=== PATIENT | male | born 2000 | race Caucasian/White ===

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

== ENCOUNTER 2022-07-18 18:47 | Emergency (ER) | payer MEDICAID, SELFPAY ==
[2022-07-18] VITALS (33 sets, daily range): BP systolic 81–134; BP diastolic 41–83; PULSE 54–78; RESP 12–20; O2SAT 92–100
--- NOTE | ~2022-07-18 | XR_ITS ---
EXAMINATION: XR chest 1V portable Exam Date/Time: 07/18/2022 19:45 [employer] FENCE BUILDER HISTORY: OD Comparison: None available. RESULT: Lines, tubes, and devices: None. Lungs and pleura: Clear. Cardiomediastinal silhouette: Normal. Other: No acute osseous or upper abdominal finding. IMPRESSION: No acute cardiopulmonary process. Reviewed, dictated and finalized at location K. IC FENCE BUILDER
--- NOTE | 2022-07-18 18:50 | ECG_ITS ---
Measurements Intervals [place] Rate: 72 P: 72 MA: 150 QRS: 93 QRSD: 89 T: 75 QT: 418 QTc: 460 Interpretive Statements SINUS RHYTHM RIGHT AXIS DEVIATION MINIMAL Q WAVES- INFERIOR LEADS BORDERLINE ECG COMPARED TO ECG 10/23/2021 09:13:13 SINUS RHYTHM NOW PRESENT Electronically Signed On 07-19-2022 7:13:07 [employer] DESIGNER by Sami Lu D.O.
[2022-07-18] MEDS: LORazepam INJ (*CRX) 2 MG/ML VIAL IV PUSH (19:10)
[2022-07-18] MEDS: HALOPERIDOL LACTATE 5 MG/ML VIAL IV PUSH (19:10)
--- NOTE | 2022-07-18 19:16 | ED.OVERDOSE ---
HPI - Overdose General Chief Complaint: Overdose <Gustavo Marin APRN - Last Filed: 07/19/22 02:27> Stated Complaint: SI/OD <Gustavo Marin APRN - Last Filed: 07/19/22 02:27> Time Seen by Provider: 07/19/22 09:12 <Gustavo Marin APRN - Last Filed: 07/19/22 02:27> History of Present Illness HPI Narrative: 21-year-old male history of anxiety and depression presents to the emergency room for evaluation of an overdose and suicide attempt. Patient presents with EMS and law enforcement in four-way restraints due to being agitated at the scene. According to EMS, patient took 4-6 tablets of Xanax, possible unknown amount of Lexapro, EtOH, and about 15 tablets of Zofran. Patient is currently agitated and alert and oriented x3 on presentation. Patient states that he was found with a knife at the scene and that is why law enforcement was called. Patient admitted to a self-inflicted knife wound to the left wrist <Gustavo Marin APRN - Last Filed: 07/19/22 02:27> Related Data Home Medications: Home Medications Medication Instructions Recorded Confirmed buprenorphine 8 mg-naloxone 2 mg tablet sublingual 07/18/22 sublingual tablet dextroamphetamine-amphetamine 10 07/18/22 mg tablet (Adderall) escitalopram oxalate 10 mg tablet mg 07/18/22 (Lexapro) ondansetron HCl 4 mg tablet mg 07/18/22 <Gustavo Marin APRN - Last Filed: 07/19/22 02:27> Allergies/Adverse Reactions: Allergies Allergy/AdvReac Type Severity Reaction Status Date / Time No Known Allergies Allergy Verified 07/18/22 19:32 <Gustavo Marin APRN - Last Filed: 07/19/22 02:27> Review of Systems Review of Systems: CONSTITUTIONAL: Denies fever, chills, or sweats. EYES: Denies visual changes, redness, or discharge. ENT: Denies rhinorrhea, congestion, sore throat, or otalgia. CARDIOVASCULAR: Denies chest pain, palpitations, or edema. RESPIRATORY: Denies cough or dyspnea. GASTROINTESTINAL: Denies abdominal pain, nausea, vomiting, or diarrhea. GENITOURINARY: Denies dysuria or hematuria. SKIN: Denies rash or itching. MUSCULOSKELETAL: Denies back pain, joint pain, or myalgia. NEUROLOGIC: Denies headache, numbness, dizziness, or weakness. PSYCHIATRIC: Denies anxiety or depression. <Gustavo Marin APRN - Last Filed: 07/19/22 02:27> PMFSH Social History Social History: Social History Substance use type: opiates and painkillers <Gustavo Marin APRN - Last Filed: 07/19/22 02:27> Exam Narrative: GENERAL: Well-appearing, well-nourished, no physical limitations, acute psychological distress. HEAD: Normocephalic, atraumatic. EYES: Conjunctivae normal, PERRLA and EOMI. NECK: Supple. CHEST: Clear to auscultation. No respiratory distress. No wheezes rales or rhonchi. HEART: Regular rate and rhythm. No murmur heard. Normal peripheral pulses. ABDOMEN: Soft, nontender, nondistended, normal active bowel sounds. BACK: No cervical/thoracic/lumbar tenderness, step-offs, bony abnormality; FROM EXTREMITIES: Normal range of motion. No edema. No clubbing or cyanosis SKIN: Warm, dry, no rash. 2.5 cm linear laceration to anterior left wrist NEURO: No focal deficits. Alert and oriented x3. MAEW. CN's II-XI intact bilaterally, normal gait PSYCH: Uncooperative and agitated <Gustavo Marin APRN - Last Filed: 07/19/22 02:27> Course Course Emergency Course: 2000: Patient in four-way soft restraints on arrival. Patient was initially cooperative and answering questions appropriately. Soft restraints were removed at that time explained to patient that I needed to repair his laceration over his left wrist, patient became uncooperative and combative at that time. Heart wrist restraints were applied and his wound was repaired. Patient told me that he was going to kill me and my family . Patient was able to sit up in bed and managed to head butt the provider in the
--- NOTE | 2022-07-18 19:19 | PC.NURSE ---
191 Called poison control and spoke with SHAN Archer. She states patient is out of window for xanax but for the possible lexapro and zofran the peak is 5 hours and to watch for drowsiness, prolonged QT and tachycardia. She recommends obtain labs, 12 lead and monitor patient. She also states okay to give ativan or geodon if still aggressive. ERP notified.
--- NOTE | 2022-07-18 19:58 | PC.NURSE ---
1954 Restraints removed, mother at bedside.
[2022-07-18 20:00] LABS: Appearance Urine Clear (Clear); Basophils Percent Auto 0.6 % (0.2-1.2); Bilirubin Urine Negative (Negative); Blood Urine Negative (Negative); Color Urine Yellow (Yellow); Eosinophils Absolute Auto 0.4 K/mm3 (0-0.3); Eosinophils Percent Auto 6.1 % (0-4.4); Glucose Urine UA Negative (Negative); Hematocrit 43.2 % (42.0-52.0); Hemoglobin 14.6 g/dL (14.0-18.0); Immature Granulocyte Absolute 0.01 K/mm3 (0.00-0.031); Immature Granulocyte Percent A 0.2 % (0-0.5); Ketones Urine Negative (Negative); Leukocyte Esterase Ur Negative LEU/UL (Negative); Lymphocytes Percent Auto 34.2 % (18.3-44.2); Mean Corpuscular HGB Conc 33.8 g/dl (32-36); Mean Corpuscular Hemoglobin 31.3 pg (26-34); Mean Corpuscular Volume 92.7 fl (80-100); Mean Platelet Volume 9.2 fl (7.4-10.4); Monocytes Absolute Auto 0.4 K/mm3 (0.1-0.6); Monocytes Percent Auto 6.1 % (2.6-8.5); Neutrophils Absolute Auto 3.4 K/mm3 (1.3-6.7); Neutrophils Percent Auto 52.8 % (45.5-73.1); Nitrate Urine Negative (Negative); Platelet Count Result 186 k/mm3 (150-375); Protein Urine Negative (Negative); Red Blood Count 4.66 M/mm3 (4.6-6.20); Red Cell Distribution Width 13.6 % (11.5-14.5); Specific Grav Ur <= 1.005 (1.001-1.035); Urobilinogen Urine 0.2 mg/dL (<2.0); White Blood Count 6.4 K/mm3 (4.5-10.0); pH Urine 6.5 (5.0-9.0)
[2022-07-18 20:05] LABS: Alanine Aminotransferase 19 U/L (6-50); Albumin Level 4.7 g/dL (3.7-5.6); Alkaline Phosphatase 57 U/L (58-237); Anion Gap 13 mmol/L (8-16); Aspartate Amino Transferase 34 U/L (17-59); Bilirubin,Total 0.6 mg/dL (0.2-1.3); Blood Urea Nitrogen 11 mg/dL (8-21); Calcium 8.8 mg/dL (8.9-10.7); Carbon Dioxide 22 mmol/L (22-30); Chloride 103 mmol/L (98-107); Estimated Glomerular Filt Rate > 60; Glucose 79 mg/dL (65-110); Potassium 3.8 mmol/L (3.4-5.0); Sodium 138 mmol/L (134-143)
[2022-07-18 20:06] LABS: Acetaminophen < 10 ug/mL (10-30); Ethanol 222 mg/dL (<10); Salicylate < 1.0 mg/dL (2-20)
[2022-07-18 20:15] LABS: Amphetamine Screen Urine Negative (Negative); Barbiturate Screen Urine Negative (Negative); Benzodiazepines Screen Urine Positive (Negative); Cannabinoid Screen Urine Negative (Negative); Cocaine Screen Urine Negative (Negative); Methadone Screen Urine Negative (Negative); Opiate Screen Urine Negative (Negative); Phencyclidine Screen Urine Negative (Negative)
[2022-07-18 20:23] LABS: Add Urine Microscopic? NO; Troponin I < 0.012 ng/mL (0.000-0.034)
[2022-07-18] MEDS: SODIUM CHLORIDE 0.9% IV 1,000 ML 999 ML IV CONT (21:41)
[2022-07-18] MEDS: LACTATED RINGERS 1,000 ML 999 ML IV CONT (23:01)
--- NOTE | 2022-07-18 23:09 | PC.NURSE ---
[id number] Suzi from poison control calls back to get update. She states she will call back later for another update.
[2022-07-19] VITALS (54 sets, daily range): BP systolic 80–136; BP diastolic 28–72; PULSE 49–85; RESP 7–22; O2SAT 94–100
[2022-07-19 02:20] LABS: Ethanol 104 mg/dL (<10)
[2022-07-19 04:14] LABS: Ethanol 68 mg/dL (<10)
--- NOTE | 2022-07-19 04:22 | PC.NURSE ---
Per MARIN Delvalle, pt is medically cleared at this time.
[2022-07-19 05:31] LABS: Influenza A QL RT-PCR Negative (Negative); Influenza B QL RT-PCR Negative (Negative); SARS-CoV-2 RNA PCR Negative
--- NOTE | 2022-07-19 08:06 | PC.NURSE ---
Pt requesting Seboxone. States If I go through withdrawal I will become an asshole.
--- NOTE | 2022-07-19 08:43 | PC.NURSE ---
[facility] unable to take pt because they are at capacity.
--- NOTE | 2022-07-19 09:00 | PC.NURSE ---
Sleeping. Sitter at bedside.
--- NOTE | 2022-07-19 09:24 | PC.NURSE ---
[facility] requests chart be faxed.
--- NOTE | 2022-07-19 09:30 | PC.NURSE ---
[facility] returned call and states they now do not have a bed available.
--- NOTE | 2022-07-19 15:40 | PC.NURSE ---
[facility] denied - no beds
--- NOTE | 2022-07-19 19:34 | PC.NURSE ---
1909 Assumed pt care from Marissa Charles RN
[2022-07-19] MEDS: LORazepam INJ (*CRX) 2 MG/ML VIAL 1 MG IV PUSH (20:20)
[2022-07-20 08:18] VITALS: BP 134/90; PULSE 66; RESP 18; TEMP 36.8; O2SAT 99
--- NOTE | 2022-07-20 08:28 | PC.NURSE ---
Patient states he feels restless since he has not had his Suboxone. EDP Mun[facility] notified. 0.5mg Ativan PO ordered.
[2022-07-20] MEDS: LORazepam (*CRX) 0.5 MG TABLET PO (08:33)
--- NOTE | 2022-07-20 09:22 | PC.NURSE ---
Since patient is 21 this RN contacted [facility] for patient evaluation. [facility] states patient is not eligible due to insurance purposes and is denied. Crisis notified for evaluation.
[2022-07-20 11:46] VITALS: BP 126/81; PULSE 60; RESP 18; O2SAT 94
[2022-07-20 16:57] VITALS: BP 129/84; PULSE 70; RESP 18; O2SAT 98
[2022-07-20] MEDS: ONDANSETRON HCL ODT 4 MG TABLET PO (19:21)
[2022-07-21] MEDS: hydrOXYzine HCL 25 MG TABLET PO ×2 (00:40→02:41)
[2022-07-21] MEDS: LORazepam (*CRX) 0.5 MG TABLET PO (03:00)
--- NOTE | 2022-07-21 05:20 | PC.NURSE ---
This nurse called [facility] and spoke with Deisi for update about pt placement status. No update could be given at approximately, 0500. Was told to call [facility] about status update and referral. [facility] called at [phone] and was told pt was originally denied due to high acuity, when called this am they stated pt needed new work up since all lab work had been over 24 hours, but did have male adult beds available. [facility] contact this am and gave update that pt was denied due to acuity on 07/20/21 during dayshift . Chart can be re-faxed if want to refer again at [phone]. [facility] contacted shortly after and was told pt needed new updated petition of involuntary placement, ht, wt, TSH, CBC, Restraint updates, BAL, Nursing notes, and medication administration to be faxed at [phone]. [facility] later called at approximately 0528 and denied pt due to acuity and lack of resources. This nurse called jose[facility]ina after these calls and spoke with Chava. Update as follows; [facility] denied due to pt is self pay/no beds available. [facility] denied due to acuity [facility] denied due to acuity originally [facility] states they need new updated psych work up and labs and new covid test needed. [facility] denied as listed above but does have adult male bed available. [facility] was full[facility]no beds [facility]- full no beds available [facility]- full/ no beds [facility]- pt chart was faxed at [phone] per josefina on 07/20/21 but no response. [facility] in [place]- chart was faxed and no response [facility]- called and VM left per [facility] with no response documented at this time. Was told by [facility] Larsen, update to all Crisis workers on staff to confirm when petition for involuntary expires, assumed at 0830 today(07/21/22), if expiring after 24 hours. If expiration occurs, [facility] will be out to reassess or continue/update petition at that approximate time. Pt restless in room 15, pt converses easily. Pt continually requesting ativan, suboxone, or Tramadol. Dr. Delvalle made aware and no new medication orders placed at this time. Pt made aware this facility can not order suboxone per Dr. Delvalle. Pt had fair night of rest since 2300 on 07/20/21. Pt ambulatory, gait steady, cooperative with staff at this time and throughout shift of 07/20/21 2300 to 07/21/22 0700. Pt ascorted with security and sitter to hospital room for shower at request of pt. Pt denies hallucinations at this time. Pt states I feel shaking, restless and then hot and then cold. Pt skin pink, warm, and dry. No moisture to palms at this time. No tremors felt or observed during assessment/updates of pt.
--- NOTE | 2022-07-21 07:24 | PC.NURSE ---
Pt breakfast order by sitter at bedside. Pt updated that crisis should be in contact around 0830 this am. Pt cooperative but restless and still requesting suboxone at this time. Report given to SHAN Edmondson at this time.
--- NOTE | 2022-07-21 08:00 | PC.NURSE ---
faxed [facility] in [place], [place] the entire chart. Waiting for call back
--- NOTE | 2022-07-21 09:50 | PC.NURSE ---
crisis at bedside for reevaluation. pt remain alert and oriented x 3. cooperative with staff.
[2022-07-21 11:15] VITALS: BP 125/85; PULSE 62; RESP 16
== END 2022-07-21 11:15 | disposition home or self-care (01) ==
PROVIDERS: Emergency Medicine; Nurse Practitioner Family; Emergency Provider Emergency Medicine
DX: T42.4X2A Poisoning by benzodiazepines, intentional self-harm, initial encounter (principal); T45.0X2A Poisoning by antiallergic and antiemetic drugs, intentional self-harm, initial encounter; T43.222A Poisoning by selective serotonin reuptake inhibitors, intentional self-harm, initial encounter; F10.129 Alcohol abuse with intoxication, unspecified; S61.512A Laceration without foreign body of left wrist, initial encounter; Y90.7 Blood alcohol level of 200-239 mg/100 ml; Z20.822 Contact with and (suspected) exposure to COVID-19; R94.31 Abnormal electrocardiogram [ECG] [EKG]; X78.1XXA Intentional self-harm by knife, initial encounter
CPT/HCPCS: 36415; 71045; 80053; 80307; 81003; 84484; 85025; 87636; 93005; 96361; 96374; 96375; 99284; A9270; J1630; J2060; J7030; J7120

== ENCOUNTER 2024-05-16 18:39 | Inpatient (IN) | payer OTHER, SELFPAY ==
[2024-05-16] VITALS (13 sets, daily range): BP systolic 80–130; BP diastolic 41–91; PULSE 86–130; RESP 12–22; TEMP 36.6–36.8; O2SAT 94–99; BMI 20.1
--- NOTE | ~2024-05-16 | XR_ITS ---
Portable chest x-ray Comparison: 05/18/2024 Clinical History: Respiratory failure Findings: Endotracheal tube, NG tube, and right IJ line are in place. Lungs are clear. Cardiomedias tinal silhouette is stable. Bones and soft tissues are unremarkable. Impression: Clear lungs. Support tubes, as above. Reviewed, dictated and finalized at location . E OIL PUMPER Impression: Clear lungs. Support tubes, as above.
--- NOTE | ~2024-05-16 | XR_ITS ---
Portable chest x-ray Comparison: 07/18/2022 Clinical History: Tube placement Findings: Endotracheal tube, NG tube, and right IJ line are in satisfactory positions. Lungs are shaq ar, without focal consolidation or pleural effusion. No pneumothorax. Cardiomediastinal silhouette i s stable. Bones and soft tissues are unremarkable. Impression: Support tubes, as above. Clear lungs. Reviewed, dictated and finalized at location M. RY DRILL OPERATOR HELPER Impression: Support tubes, as above. Clear lungs.
--- NOTE | ~2024-05-16 | XR_ITS ---
Upright portable view of the abdomen Clinical history: NG tube placement Findings: NG tube in satisfactory position. Bowel gas pattern is nonspecific. No evidence for obstruc tion or free air. No abnormal mass lesion or calcification is seen. Osseous structures are intact. Impression: NG tube in satisfactory position. Reviewed, dictated and finalized at [facility]. ILING INSTRUCTOR Impression: NG tube in satisfactory position.
--- NOTE | ~2024-05-16 | CT_ITS ---
CT brain wo con Ordering provider: Daniel Wright MD History: 23 years Male with him. Seizures . Comparison: October 23, 2021 Technique: CT of the head without contrast. Radiation reduction technique utilized.The dose-length pr oduct was 605.33 mGy-cm. FINDINGS: BRAIN PARENCHYMA AND CSF SPACES: No midline shift, mass effect or hemorrhage. The brain parenchyma a nd CSF spaces are otherwise normal. VISUALIZED PARANASAL SINUSES: Well aerated. MASTOIDS: Well aerated. BONES: The bones appear intact. SOFT TISSUES: Visualized nasopharynx is normal. Superficial soft tissues are normal. IMPRESSION: No acute intracranial findings. Reviewed, dictated and finalized at location A. IC ACID CONCENTRATOR OPERATOR
--- NOTE | ~2024-05-16 | XR_ITS ---
Portable chest x-ray Comparison: 05/17/2024 Clinical History: Respiratory failure Findings: Endotracheal tube, NG tube, and right IJ line are in place. Lungs are clear, without focal consolidation or pleural effusion. Cardiomediastinal silhouette is stable. Bones and soft tissues a re unremarkable. Impression: Clear lungs. Support tubes, as above. Reviewed, dictated and finalized at location . ION ANALYST Impression: Clear lungs. Support tubes, as above.
--- NOTE | ~2024-05-16 | XR_ITS ---
EXAMINATION: XR chest 1V portable DATE: 05/17/2024 21:24 INDICATION: Fever. Intubated. TECHNIQUE: A single frontal view of the chest was obtained on 2 radiographs. COMPARISON: Chest single view 05/17/2024 FINDINGS: There is no pneumonia, pleural effusion, or pneumothorax. The heart size is normal. The end otracheal tube tip is 2.6 cm above the gurmeet. A right internal jugular central venous catheter is se en with tip in the superior vena cava. The nasogastric tube tip is beyond the inferior margin of the radiograph, but at least to the stomach. IMPRESSION: 1. No acute cardiopulmonary disease. Reviewed, dictated and finalized at location A. CH ENGINE OPTIMIZATION MANAGER
--- NOTE | 2024-05-16 18:51 | ECG_ITS ---
Test Date: 2024-05-16 18:55:31 Measurements Intervals [place] Rate: 101 P: 71 RI: 154 QRS: 95 QRSD: 92 T: 56 QT: 359 QTc: 465 Interpretive Statements SINUS TACHYCARDIA RIGHT AXIS DEVIATION MINIMAL Q WAVES- INFERIOR LEADS BASELINE ARTIFACT- V1 BORDERLINE ECG No previous ECG available for comparison Electronically Signed On 05-16-2024 20:31:48 PUBLIC POLICY MANAGER by Sami Lu D.O.
--- NOTE | 2024-05-16 19:01 | PC.NURSE ---
RN spoke with Kristyn at Poison control who stated Peak for Gabapentin is around 2 hours but can be 5 hours. States that 10 grams is the max and that pt is under that max amount. Peak for Fluoxetine is around 6-8 hours and to watch for seizures and rhabdomyolysis. Recommends to monitor pt for at least 6 hours and to do serial EKG's, IV fluids, medications to keep blood pressure in range and to monitor renal function
--- NOTE | 2024-05-16 19:11 | ED_ITS ---
HPI - Overdose General Chief Complaint: Overdose <Sushma Orellana PA-C - Last Filed: 05/17/24 01:04> Stated Complaint: OD/ETOH <Sushma Orellana PA-C - Last Filed: 05/17/24 01:04> Time Seen by Provider: 05/16/24 18:42 <Sushma Orellana PA-C - Last Filed: 05/17/24 01:04> History of Present Illness HPI Narrative: 23-year-old male presents to the ED via EMS for an overdose. patient took 2940 mg of fluoxetine and 40-100 mg of gabapentin at 6:00 p.m.. States he took these pills because he was sad. He denies suicidal ideation or homicidal ideation. He admits to drinking a 5th of vodka today, last drink was around 1800 as well. States he drinks half of 5th of vodka daily for the past 2 months. He also admits to using several drugs including methamphetamines and opioids. He admits to being hospitalized 6 months ago for a heroin overdose. He has no complaints. <Sushma Orellana PA-C - Last Filed: 05/17/24 01:04> Related Data Home Medications: Home Medications Medication Instructions Recorded Confirmed buprenorphine 8 mg-naloxone 2 mg tablet sublingual 07/18/22 sublingual tablet dextroamphetamine-amphetamine 10 07/18/22 mg tablet (Adderall) escitalopram oxalate 10 mg tablet mg 07/18/22 (Lexapro) ondansetron HCl 4 mg tablet mg 07/18/22 bupropion HCl 150 mg tablet,12 hr 150 mg PO DAILY 05/16/24 sustained-release fluoxetine 10 mg capsule mg 05/16/24 fluoxetine 20 mg capsule mg 05/16/24 fluoxetine 40 mg capsule mg 05/16/24 gabapentin 100 mg capsule mg 05/16/24 <LORIN Cordova Last Filed: 05/17/24 01:04> Allergies/Adverse Reactions: Allergies Allergy/AdvReac Type Severity Reaction Status Date / Time No Known Allergies Allergy Verified 05/16/24 18:54 <LORIN Cordova Last Filed: 05/17/24 01:04> Review of Systems Review of Systems: All systems reviewed & are unremarkable except as noted in HPI and below <Sushma Orellana PA-C - Last Filed: 05/17/24 01:04> [facility] Past Medical History Medical History: Medical History Alcohol abuse Alcohol intoxication Polysubstance abuse <Sushma Orellana PA-C - Last Filed: 05/17/24 01:04> Social History Social History: Social History Smoking status: Unknown if ever smoked Alcohol intake: current Substance use: current Substance use type: marijuana, amphetamines, opiates and methamphetamine Last use: 05/16/24 Spiritual care concerns: No <Sushma Orellana PA-C - Last Filed: 05/17/24 01:04> Exam Narrative: GENERAL: Intoxicated, anxious, irritable HEAD: Normocephalic, atraumatic. EYES: PERRLA and EOMI. conjunctiva injected bilaterally. Mydriasis bilaterally ENT: Nares clear, no rhinorrhea or epistaxis. Mucous membranes moist. NECK: Supple. CHEST: Clear to auscultation. No respiratory distress. HEART: tachycardic, regular rhythm. No murmur heard. Normal peripheral pulses. ABDOMEN: Soft, nontender, nondistended, normal active bowel sounds. EXTREMITIES: Normal range of motion. No edema. SKIN: Warm, dry, no rash. NEURO: No focal deficits. Alert and oriented x3 PSYCH: anxious, irritable, denies SI or HI <Sushma Orellana PA-C - Last Filed: 05/17/24 01:04> Course CREEL CLERK/PA Physician Supervision This visit was performed by both a physician and an APC. I performed all aspects of the MDM as documented. <Román Amaral MD - Last Filed: 05/19/24 04:16> Vital Signs Vital signs: Vital Signs Temperature 97.8 F 05/16/24 18:36 Pulse Rate 130 H 05/16/24 18:36 Respiratory Rate 18 05/16/24 18:36 Blood Pressure 130/91 H 05/16/24 18:36 Pulse Oximetry 97 05/16/24 18:36 Oxygen Delivery Room Air 05/16/24 18:36 Temperature 100 F H 05/19/24 04:00 Pulse Rate 87 05/19/24 04:00 Respiratory Rate 17 05/19/24 04:00 Blood Pressure 111/73 05/19/24 04:00 Pulse Oximetry 98 05/19/24 04:00 Oxygen Delivery Mechanical Ventilation 05/19/24 02:23 Oxygen Flow Rate 4 05/16/24 23:23 Fraction of Inspired Oxygen 25 05/19/24 02:23 <Sushma Orellana PA-C - Last Filed: 05/17/24 01:04> Vital Signs Temperature 97.8 F 05/16/24 18:36 Pulse Rate 130 H 05/16/24 18:36 Respiratory Rate 18 05/16/24 18:36 Blood Pressure 130/91 H 05/16/24 18:36 Pulse Oximetry 97 05/16/24 18:36 Oxygen Delivery Room Air 05/16/24 18:36 Temperature 100 F H 05/19/24 04:00 Pulse Rate 87 05/19/24 04:00 Respiratory Rate 17 05/19/24 04:00 Blood Pressure 111/73 05/19/24 04:00 Pulse Oximetry 98 05/19/24 04:00 Oxygen Delivery Mechanical Ventilation 05/19/24 02:23 Oxygen Flow Rate 4 05/16/24 23:23 Fraction of Inspired Oxygen 25 05/19/24 02:23 <Román Amaral MD - Last Filed: 05/19/24 04:16> MDM - Overdose MDM Narrative Medical decision making narrative: 23-year-old male with history of substance abuse, ETOH abuse presents to emergency department for drug overdose. Patient took 29 40 mg of fluoxetine 40 100 mg of gabapentin at 4:00 p.m.. Also admits to drinking daily for the past 6 months. Last drink was at 1800. States he took the medications because he is sad but denies direct suicide attempt. airway intact. Patient is awake and alert. Plan to obtain broad workup including lab work, ABG, EKG, UDS, EtOH. Plan to contact poison Control. Poison Control Contacted. Advise peak gabapentin is around 2 hours but can be 5 hours. advises 10 g is level of concern and patient is under 10 g a consumption. Advises peak fluoxetine is around 6-8 hours and to watch for seizures and rhabdomyolysis. Poison Control recommends to monitor the patient for least 6 hours and to do serial EKGs, IV fluids, medications to control blood pressure and to monitor renal function closely. CBC is largely unremarkable. Chemistries with anion gap of 13, normal bicarb. Lactic acid is elevated to 2.9. UA unremarkable. UDS positive for amphetamines and cannabinoids. CK normal at 109. Ethanol elevated 268. Mag is normal. TSH normal 1.8. EKG shows sinus tachycardia rate of 101, normal OK interval, normal QRS duration, normal QTC, normal ischemic changes. Patient received a L of fluids and heart rate has improved to 101. He remains alert and oriented, airway is protected. Consulted, Dr. Wright,who advises another L of fluids and maintenance LRs of 125cc/hr. Advises admission to IMU with ICU bed. discussed the case with the hospitalist, Dr. Cerna, who agrees to the plan. prior to patient going upstairs, he had a less than 1 minute seizure which was observed by myself and nursing staff. Patient had a short period of apnea but quickly regained normal respiratory rate and saturations of 95% and above. Repeat EKG shows a ventricular rate of 89 ppm, normal OK interval, normal QRS duration, normal QTC at 457, no ischemic changes. EKG just prior to seizure- like activity did show a QTC of 499. <Sushma Orellana PA-C - Last Filed: 05/17/24 01:04> Lab Data Result diagrams: 05/18/24 05:47 05/18/24 05:47 <Sushma Orellana PA-C - Last Filed: 05/17/24 01:04> Labs: Lab Results 05/16/24 05/16/24 05/16/24 Range/Units 19:15 19:41 23:12 WBC 7.9 (4.5-10.0) K/mm3 RBC 4.95 (4.6-6.20) M/mm3 Hgb 16.0 (14.0-18.0) g/dL Hct 46.9 (42.0-52.0) % MCV 94.7 (80-100) fl MCH 32.3 (26-34) pg MCHC 34.1 (32-36) g/dl RDW 13.9 (11.5-14.5) % Plt Count 254 (150-375) k/mm3 MPV 9.2 (7.4-10.4) fl Immature Gran % (Auto) 0.3 (0-0.5) % Neut % (Auto) 38.0 L (45.5-73.1) % Lymph % (Auto) 47.9 H (18.3-44.2) % [place] % (Auto) 6.6 (2.6-8.5) % Eos % (Auto) 6.4 H (0-4.4) % Baso % (Auto) 0.8 (0.2-1.2) % Lymph # (Auto) 3.79 H (0.9-3.2) K/mm3 [place] # (Auto) 0.5 (0.1-0.6) K/mm3 Eos # (Auto) 0.5 H (0-0.3) K/mm3 Baso # (Auto) 0.1 (0.0-0.1) K/mm3 Abs Immat Gran (auto) 0.02 (0.00-0.031) K/mm3 Absolute Neuts (auto) 3.0 (1.3-6.7) K/mm3 Absolute Nucleated RBC 0.000 (0.0-0.012) K/mm3 Nucleated RBC % 0.0 (0.0-0.2) % PT 14.3 (11.1-14.7) Seconds INR 1.1 APTT 26.7 (22.3-36.8) Seconds Methemoglobin (0-1.5) %THb Minute Volume Vent Mode Tidal Volume ml PEEP cmH2O Peak Inspir Pressure Pressure Support Sodium 141 (137-145) mmol/L Potassium 4.0 (3.4-5.0) mmol/L Chloride 102 (98-107) mmol/L Carbon Dioxide 26 (22-30) mmol/L Anion Gap 13 H (4-12) mmol/L BUN 11 (9-20) mg/dL Creatinine 1.10 (0.7-1.3) mg/dL Estim Creat Clear Calc 88 ml/min Estimated GFR > 60 (59 - ) Glucose 97 (65-110) mg/dL POC Capillary Glucose (65-105) mg/dl Lactic Acid 2.9 H 4.4 H* (0.7-2.0) mmol/L Calcium 9.8 (8.4-10.2) mg/dL Phosphorus 2.1 L (2.5-4.5) mg/dL Magnesium 2.2 (1.6-2.3) mg/dL Total Bilirubin 0.6 (0.2-1.3) mg/dL AST 31 (17-59) U/L ALT 19 (6-50) U/L Alkaline Phosphatase 73 (38-126) U/L Total Creatine Kinase 109 (55-170) U/L Total Protein 9.0 H (6.3-8.2) g/dL Albumin 5.2 H (3.5-5.1) g/dL Triglycerides (<150) mg/dL TSH 1.800 (0.465-4.680) uIU/mL Urine Color Yellow (Yellow) Urine Appearance Clear (Clear) Urine pH 6.5 (5.0-9.0) Ur Specific [place] 1.004 (1.001-1.035) Urine Protein Negative (Negative) mg/dL Urine Glucose (UA) Negative (Negative) mg/dL Urine Ketones Negative (Negative) mg/dL Ur Blood (Man) Negative (Negative) Urine Nitrate Negative (Negative) Urine Bilirubin Negative (Negative) Urine Urobilinogen 0.2 (<2.0) mg/dL Leukocyte Esterase Rfl Negative (Negative) BECK/UL Salicylates (2-20) mg/dL Urine Opiates Screen Negative (Negative) Urine Methadone Screen Negative (Negative) Acetaminophen < 10 L (10-30) ug/mL Ur Barbiturates Screen Negative (Negative) Ur Phencyclidine Scrn Negative (Negative) Ur Amphetamine Screen Positive A (Negative) U Benzodiazepines Scrn Negative (Negative) Urine Cocaine Screen Negative (Negative) U Cannabinoids Screen Positive A (Negative) Ethyl Alcohol 268 (<10) mg/dL 05/16/24 05/17/24 05/17/24 Range/Units 23:19 01:48 06:14 WBC 9.4 (4.5-10.0) K/mm3 RBC 3.68 L (4.6-6.20) M/mm3 Hgb 11.9 L D (14.0-18.0) g/dL Hct 35.3 L (42.0-52.0) % MCV 95.9 (80-100) fl MCH 32.3 (26-34) pg MCHC 33.7 (32-36) g/dl RDW 14.2 (11.5-14.5) % Plt Count 169 (150-375) k/mm3 MPV 9.0 (7.4-10.4) fl Immature Gran % (Auto) (0-0.5) % Neut % (Auto) (45.5-73.1) % Lymph % (Auto) (18.3-44.2) % [place] % (Auto) (2.6-8.5) % Eos % (Auto) (0-4.4) % Baso % (Auto) (0.2-1.2) % Lymph # (Auto) (0.9-3.2) K/mm3 [place] # (Auto) (0.1-0.6) K/mm3 Eos # (Auto) (0-0.3) K/mm3 Baso # (Auto) (0.0-0.1) K/mm3 Abs Immat Gran (auto) (0.00-0.031) K/mm3 Absolute Neuts (auto) (1.3-6.7) K/mm3 Absolute Nucleated RBC (0.0-0.012) K/mm3 Nucleated RBC % (0.0-0.2) % PT (11.1-14.7) Seconds INR APTT (22.3-36.8) Seconds Methemoglobin 0.2 (0-1.5) %THb Minute Volume Not Reportable Vent Mode Cmv Tidal Volume 540 ml PEEP 5 cmH2O Peak Inspir Pressure Not Reportable Pressure Support Not Reportable Sodium 139 (137-145) mmol/L Potassium 3.3 L (3.4-5.0) mmol/L Chloride 109 H (98-107) mmol/L Carbon Dioxide 21 L (22-30) mmol/L Anion Gap 9 (4-12) mmol/L BUN 7 L (9-20) mg/dL Creatinine 0.80 (0.7-1.3) mg/dL Estim Creat Clear Calc 121 ml/min Estimated GFR > 60 (59 - ) Glucose 68 (65-110) mg/dL POC Capillary Glucose (65-105) mg/dl Lactic Acid 4.2 H* (0.7-2.0) mmol/L Calcium 8.0 L (8.4-10.2) mg/dL Phosphorus 2.4 L (2.5-4.5) mg/dL Magnesium 1.5 L (1.6-2.3) mg/dL Total Bilirubin 0.4 (0.2-1.3) mg/dL AST 25 (17-59) U/L ALT 15 (6-50) U/L Alkaline Phosphatase 58 (38-126) U/L Total Creatine Kinase (55-170) U/L Total Protein 6.0 L (6.3-8.2) g/dL Albumin 3.3 L (3.5-5.1) g/dL Triglycerides 77 (<150) mg/dL TSH (0.465-4.680) uIU/mL Urine Color (Yellow) Urine Appearance (Clear) Urine pH (5.0-9.0) Ur Specific [place] (1.001-1.035) Urine Protein (Negative) mg/dL Urine Glucose (UA) (Negative) mg/dL Urine Ketones (Negative) mg/dL Ur Blood (Man) (Negative) Urine Nitrate (Negative) Urine Bilirubin (Negative) Urine Urobilinogen (<2.0) mg/dL Leukocyte Esterase Rfl (Negative) BECK/UL Salicylates < 1.0 L (2-20) mg/dL Urine Opiates Screen (Negative) Urine Methadone Screen (Negative) Acetaminophen (10-30) ug/mL Ur Barbiturates Screen (Negative) Ur Phencyclidine Scrn (Negative) Ur Amphetamine Screen (Negative) U Benzodiazepines Scrn (Negative) Urine Cocaine Screen (Negative) U Cannabinoids Screen (Negative) Ethyl Alcohol (<10) mg/dL 05/17/24 05/17/24 Range/Units 06:56 09:37 WBC (4.5-10.0) K/mm3 RBC (4.6-6.20) M/mm3 Hgb (14.0-18.0) g/dL Hct (42.0-52.0) % MCV (80-100) fl MCH (26-34) pg MCHC (32-36) g/dl RDW (11.5-14.5) % Plt Count (150-375) k/mm3 MPV (7.4-10.4) fl Immature Gran % (Auto) (0-0.5) % Neut % (Auto) (45.5-73.1) % Lymph % (Auto) (18.3-44.2) % [place] % (Auto) (2.6-8.5) % Eos % (Auto) (0-4.4) % Baso % (Auto) (0.2-1.2) % Lymph # (Auto) (0.9-3.2) K/mm3 [place] # (Auto) (0.1-0.6) K/mm3 Eos # (Auto) (0-0.3) K/mm3 Baso # (Auto) (0.0-0.1) K/mm3 Abs Immat Gran (auto) (0.00-0.031) K/mm3 Absolute Neuts (auto) (1.3-6.7) K/mm3 Absolute Nucleated RBC (0.0-0.012) K/mm3 Nucleated RBC % (0.0-0.2) % PT (11.1-14.7) Seconds INR APTT (22.3-36.8) Seconds Methemoglobin (0-1.5) %THb Minute Volume Vent Mode Tidal Volume ml PEEP cmH2O Peak Inspir Pressure Pressure Support Sodium (137-145) mmol/L Potassium (3.4-5.0) mmol/L Chloride (98-107) mmol/L Carbon Dioxide (22-30) mmol/L Anion Gap (4-12) mmol/L BUN (9-20) mg/dL Creatinine (0.7-1.3) mg/dL Estim Creat Clear Calc ml/min Estimated GFR (59 - ) Glucose (65-110) mg/dL POC Capillary Glucose 214 H 82 (65-105) mg/dl Lactic Acid (0.7-2.0) mmol/L Calcium (8.4-10.2) mg/dL Phosphorus (2.5-4.5) mg/dL Magnesium (1.6-2.3) mg/dL Total Bilirubin (0.2-1.3) mg/dL AST (17-59) U/L ALT (6-50) U/L Alkaline Phosphatase (38-126) U/L Total Creatine Kinase (55-170) U/L Total Protein (6.3-8.2) g/dL Albumin (3.5-5.1) g/dL Triglycerides (<150) mg/dL TSH (0.465-4.680) uIU/mL Urine Color (Yellow) Urine Appearance (Clear) Urine pH (5.0-9.0) Ur Specific [place] (1.001-1.035) Urine Protein (Negative) mg/dL Urine Glucose (UA) (Negative) mg/dL Urine Ketones (Negative) mg/dL Ur Blood (Man) (Negative) Urine Nitrate (Negative) Urine Bilirubin (Negative) Urine Urobilinogen (<2.0) mg/dL Leukocyte Esterase Rfl (Negative) BECK/UL Salicylates (2-20) mg/dL Urine Opiates Screen (Negative) Urine Methadone Screen (Negative) Acetaminophen (10-30) ug/mL Ur Barbiturates Screen (Negative) Ur Phencyclidine Scrn (Negative) Ur Amphetamine Screen (Negative) U Benzodiazepines Scrn (Negative) Urine Cocaine Screen (Negative) U Cannabinoids Screen (Negative) Ethyl Alcohol (<10) mg/dL <Sushma Orellana PA-C - Last Filed: 05/17/24 01:04> Lab Results 05/16/24 05/16/24 05/16/24 Range/Units 19:15 19:41 23:12 WBC 7.9 (4.5-10.0) K/mm3 RBC 4.95 (4.6-6.20) M/mm3 Hgb 16.0 (14.0-18.0) g/dL Hct 46.9 (42.0-52.0) % MCV 94.7 (80-100) fl MCH 32.3 (26-34) pg MCHC 34.1 (32-36) g/dl RDW 13.9 (11.5-14.5) % Plt Count 254 (150-375) k/mm3 MPV 9.2 (7.4-10.4) fl Immature Gran % (Auto) 0.3 (0-0.5) % Neut % (Auto) 38.0 L (45.5-73.1) % Lymph % (Auto) 47.9 H (18.3-44.2) % [place] % (Auto) 6.6 (2.6-8.5) % Eos % (Auto) 6.4 H (0-4.4) % Baso % (Auto) 0.8 (0.2-1.2) % Lymph # (Auto) 3.79 H (0.9-3.2) K/mm3 [place] # (Auto) 0.5 (0.1-0.6) K/mm3 Eos # (Auto) 0.5 H (0-0.3) K/mm3 Baso # (Auto) 0.1 (0.0-0.1) K/mm3 Abs Immat Gran (auto) 0.02 (0.00-0.031) K/mm3 Absolute Neuts (auto) 3.0 (1.3-6.7) K/mm3 Absolute Nucleated RBC 0.000 (0.0-0.012) K/mm3 Nucleated RBC % 0.0 (0.0-0.2) % PT 14.3 (11.1-14.7) Seconds INR 1.1 APTT 26.7 (22.3-36.8) Seconds Methemoglobin (0-1.5) %THb Minute Volume Vent Mode Tidal Volume ml PEEP cmH2O Peak Inspir Pressure Pressure Support Sodium 141 (137-145) mmol/L Potassium 4.0 (3.4-5.0) mmol/L Chloride 102 (98-107) mmol/L Carbon Dioxide 26 (22-30) mmol/L Anion Gap 13 H (4-12) mmol/L BUN 11 (9-20) mg/dL Creatinine 1.10 (0.7-1.3) mg/dL Estim Creat Clear Calc 88 ml/min Estimated GFR > 60 (59 - ) Glucose 97 (65-110) mg/dL POC Capillary Glucose (65-105) mg/dl Lactic Acid 2.9 H 4.4 H* (0.7-2.0) mmol/L Calcium 9.8 (8.4-10.2) mg/dL Phosphorus 2.1 L (2.5-4.5) mg/dL Magnesium 2.2 (1.6-2.3) mg/dL Total Bilirubin 0.6 (0.2-1.3) mg/dL AST 31 (17-59) U/L ALT 19 (6-50) U/L Alkaline Phosphatase 73 (38-126) U/L Total Creatine Kinase 109 (55-170) U/L Total Protein 9.0 H (6.3-8.2) g/dL Albumin 5.2 H (3.5-5.1) g/dL Triglycerides (<150) mg/dL TSH 1.800 (0.465-4.680) uIU/mL Urine Color Yellow (Yellow) Urine Appearance Clear (Clear) Urine pH 6.5 (5.0-9.0) Ur Specific [place] 1.004 (1.001-1.035) Urine Protein Negative (Negative) mg/dL Urine Glucose (UA) Negative (Negative) mg/dL Urine Ketones Negative (Negative) mg/dL Ur Blood (Man) Negative (Negative) Urine Nitrate Negative (Negative) Urine Bilirubin Negative (Negative) Urine Urobilinogen 0.2 (<2.0) mg/dL Leukocyte Esterase Rfl Negative (Negative) BECK/UL Salicylates (2-20) mg/dL Urine Opiates Screen Negative (Negative) Urine Methadone Screen Negative (Negative) Acetaminophen < 10 L (10-30) ug/mL Ur Barbiturates Screen Negative (Negative) Ur Phencyclidine Scrn Negative (Negative) Ur Amphetamine Screen Positive A (Negative) U Benzodiazepines Scrn Negative (Negative) Urine Cocaine Screen Negative (Negative) U Cannabinoids Screen Positive A (Negative) Ethyl Alcohol 268 (<10) mg/dL 05/16/24 05/17/24 05/17/24 Range/Units 23:19 01:48 06:14 WBC 9.4 (4.5-10.0) K/mm3 RBC 3.68 L (4.6-6.20) M/mm3 Hgb 11.9 L D (14.0-18.0) g/dL Hct 35.3 L (42.0-52.0) % MCV 95.9 (80-100) fl MCH 32.3 (26-34) pg MCHC 33.7 (32-36) g/dl RDW 14.2 (11.5-14.5) % Plt Count 169 (150-375) k/mm3 MPV 9.0 (7.4-10.4) fl Immature Gran % (Auto) (0-0.5) % Neut % (Auto) (45.5-73.1) % Lymph % (Auto) (18.3-44.2) % [place] % (Auto) (2.6-8.5) % Eos % (Auto) (0-4.4) % Baso % (Auto) (0.2-1.2) % Lymph # (Auto) (0.9-3.2) K/mm3 [place] # (Auto) (0.1-0.6) K/mm3 Eos # (Auto) (0-0.3) K/mm3 Baso # (Auto) (0.0-0.1) K/mm3 Abs Immat Gran (auto) (0.00-0.031) K/mm3 Absolute Neuts (auto) (1.3-6.7) K/mm3 Absolute Nucleated RBC (0.0-0.012) K/mm3 Nucleated RBC % (0.0-0.2) % PT (11.1-14.7) Seconds INR APTT (22.3-36.8) Seconds Methemoglobin 0.2 (0-1.5) %THb Minute Volume Not Reportable Vent Mode Cmv Tidal Volume 540 ml PEEP 5 cmH2O Peak Inspir Pressure Not Reportable Pressure Support Not Reportable Sodium 139 (137-145) mmol/L Potassium 3.3 L (3.4-5.0) mmol/L Chloride 109 H (98-107) mmol/L Carbon Dioxide 21 L (22-30) mmol/L Anion Gap 9 (4-12) mmol/L BUN 7 L (9-20) mg/dL Creatinine 0.80 (0.7-1.3) mg/dL Estim Creat Clear Calc 121 ml/min Estimated GFR > 60 (59 - ) Glucose 68 (65-110) mg/dL POC Capillary Glucose (65-105) mg/dl Lactic Acid 4.2 H* (0.7-2.0) mmol/L Calcium 8.0 L (8.4-10.2) mg/dL Phosphorus 2.4 L (2.5-4.5) mg/dL Magnesium 1.5 L (1.6-2.3) mg/dL Total Bilirubin 0.4 (0.2-1.3) mg/dL AST 25 (17-59) U/L ALT 15 (6-50) U/L Alkaline Phosphatase 58 (38-126) U/L Total Creatine Kinase (55-170) U/L Total Protein 6.0 L (6.3-8.2) g/dL Albumin 3.3 L (3.5-5.1) g/dL Triglycerides 77 (<150) mg/dL TSH (0.465-4.680) uIU/mL Urine Color (Yellow) Urine Appearance (Clear) Urine pH (5.0-9.0) Ur Specific [place] (1.001-1.035) Urine Protein (Negative) mg/dL Urine Glucose (UA) (Negative) mg/dL Urine Ketones (Negative) mg/dL Ur Blood (Man) (Negative) Urine Nitrate (Negative) Urine Bilirubin (Negative) Urine Urobilinogen (<2.0) mg/dL Leukocyte Esterase Rfl (Negative) BECK/UL Salicylates < 1.0 L (2-20) mg/dL Urine Opiates Screen (Negative) Urine Methadone Screen (Negative) Acetaminophen (10-30) ug/mL Ur Barbiturates Screen (Negative) Ur Phencyclidine Scrn (Negative) Ur Amphetamine Screen (Negative) U Benzodiazepines Scrn (Negative) Urine Cocaine Screen (Negative) U Cannabinoids Screen (Negative) Ethyl Alcohol (<10) mg/dL 05/17/24 05/17/24 Range/Units 06:56 09:37 WBC (4.5-10.0) K/mm3 RBC (4.6-6.20) M/mm3 Hgb (14.0-18.0) g/dL Hct (42.0-52.0) % MCV (80-100) fl MCH (26-34) pg MCHC (32-36) g/dl RDW (11.5-14.5) % Plt Count (150-375) k/mm3 MPV (7.4-10.4) fl Immature Gran % (Auto) (0-0.5) % Neut % (Auto) (45.5-73.1) % Lymph % (Auto) (18.3-44.2) % [place] % (Auto) (2.6-8.5) % Eos % (Auto) (0-4.4) % Baso % (Auto) (0.2-1.2) % Lymph # (Auto) (0.9-3.2) K/mm3 [place] # (Auto) (0.1-0.6) K/mm3 Eos # (Auto) (0-0.3) K/mm3 Baso # (Auto) (0.0-0.1) K/mm3 Abs Immat Gran (auto) (0.00-0.031) K/mm3 Absolute Neuts (auto) (1.3-6.7) K/mm3 Absolute Nucleated RBC (0.0-0.012) K/mm3 Nucleated RBC % (0.0-0.2) % PT (11.1-14.7) Seconds INR APTT (22.3-36.8) Seconds Methemoglobin (0-1.5) %THb Minute Volume Vent Mode Tidal Volume ml PEEP cmH2O Peak Inspir Pressure Pressure Support Sodium (137-145) mmol/L Potassium (3.4-5.0) mmol/L Chloride (98-107) mmol/L Carbon Dioxide (22-30) mmol/L Anion Gap (4-12) mmol/L BUN (9-20) mg/dL Creatinine (0.7-1.3) mg/dL Estim Creat Clear Calc ml/min Estimated GFR (59 - ) Glucose (65-110) mg/dL POC Capillary Glucose 214 H 82 (65-105) mg/dl Lactic Acid (0.7-2.0) mmol/L Calcium (8.4-10.2) mg/dL Phosphorus (2.5-4.5) mg/dL Magnesium (1.6-2.3) mg/dL Total Bilirubin (0.2-1.3) mg/dL AST (17-59) U/L ALT (6-50) U/L Alkaline Phosphatase (38-126) U/L Total Creatine Kinase (55-170) U/L Total Protein (6.3-8.2) g/dL Albumin (3.5-5.1) g/dL Triglycerides (<150) mg/dL TSH (0.465-4.680) uIU/mL Urine Color (Yellow) Urine Appearance (Clear) Urine pH (5.0-9.0) Ur Specific [place] (1.001-1.035) Urine Protein (Negative) mg/dL Urine Glucose (UA) (Negative) mg/dL Urine Ketones (Negative) mg/dL Ur Blood (Man) (Negative) Urine Nitrate (Negative) Urine Bilirubin (Negative) Urine Urobilinogen (<2.0) mg/dL Leukocyte Esterase Rfl (Negative) BECK/UL Salicylates (2-20) mg/dL Urine Opiates Screen (Negative) Urine Methadone Screen (Negative) Acetaminophen (10-30) ug/mL Ur Barbiturates Screen (Negative) Ur Phencyclidine Scrn (Negative) Ur Amphetamine Screen (Negative) U Benzodiazepines Scrn (Negative) Urine Cocaine Screen (Negative) U Cannabinoids Screen (Negative) Ethyl Alcohol (<10) mg/dL <Román Amaral MD - Last Filed: 05/19/24 04:16> ABG Data ABG results: 05/16/24 05/17/24 21:20 01:48 Puncture Site Right radial ABG pH 7.430 ABG pCO2 27.3 L ABG pO2 258.9 H ABG PO2/FiO2 Ratio 5.18 ABG HCO3 17.7 L ABG O2 Saturation 99.6 ABG O2 Content 18.2 ABG Base Excess -5.2 VBG pH 7.352 VBG pCO2 32.7 L VBG pO2 65.6 H VBG HCO3 17.7 L A-a Gradient 66.9 Oxyhemoglobin 99.1 Carboxyhemoglobin 0.3 Reduced Hemoglobin 0.4 Total Hemoglobin 12.6 O2 Delivery Device Room air Ventilator O2 Liters/Min Not Reportable Not Reportable Vent Rate 18 FiO2 21 50 <Sushma Orellana PA-C - Last Filed: 05/17/24 01:04> 05/16/24 05/17/24 21:20 01:48 Puncture Site Right radial ABG pH 7.430 ABG pCO2 27.3 L ABG pO2 258.9 H ABG PO2/FiO2 Ratio 5.18 ABG HCO3 17.7 L ABG O2 Saturation 99.6 ABG O2 Content 18.2 ABG Base Excess -5.2 VBG pH 7.352 VBG pCO2 32.7 L VBG pO2 65.6 H VBG HCO3 17.7 L A-a Gradient 66.9 Oxyhemoglobin 99.1 Carboxyhemoglobin 0.3 Reduced Hemoglobin 0.4 Total Hemoglobin 12.6 O2 Delivery Device Room air Ventilator O2 Liters/Min Not Reportable Not Reportable Vent Rate 18 FiO2 21 50 <Román Amaral MD - Last Filed: 05/19/24 04:16> Discharge Plan Discharge Clinical Impression: Amphetamine abuse Drug overdose Qualifiers: Encounter type: initial encounter Injury intent: undetermined intent Qualified Code(s): T50.904A - Poisoning by unspecified drugs, medicaments and biological substances, undetermined, initial encounter <Sushma Orellana PA-C - Last Filed: 05/17/24 01:04> Patient Disposition: Still a Patient <Sushma Orellana PA-C - Last Filed: 05/17/24 01:04> Condition: Serious <Sushma Orellana PA-C - Last Filed: 05/17/24 01:04>
--- NOTE | 2024-05-16 19:20 | PC.NURSE ---
Unable to scan any medications into pt chart due to provider being in pt chart. 1914 1 L bolus of NS started in the L AC. 1915 100 mg of thiamine administered via IV push.
--- NOTE | 2024-05-16 19:26 | PC.NURSE ---
Report given to Francy TORREZ, all questions answered
[2024-05-16 19:27] LABS: Basophils Absolute Auto 0.1 K/mm3 (0.0-0.1); Basophils Percent Auto 0.8 % (0.2-1.2); Eosinophils Absolute Auto 0.5 K/mm3 (0-0.3); Eosinophils Percent Auto 6.4 % (0-4.4); Hematocrit 46.9 % (42.0-52.0); Immature Granulocyte Absolute 0.02 K/mm3 (0.00-0.031); Immature Granulocyte Percent A 0.3 % (0-0.5); Lymphocytes Absolute Auto 3.79 K/mm3 (0.9-3.2); Lymphocytes Percent Auto 47.9 % (18.3-44.2); Mean Corpuscular HGB Conc 34.1 g/dl (32-36); Mean Corpuscular Hemoglobin 32.3 pg (26-34); Mean Corpuscular Volume 94.7 fl (80-100); Mean Platelet Volume 9.2 fl (7.4-10.4); Monocytes Absolute Auto 0.5 K/mm3 (0.1-0.6); Monocytes Percent Auto 6.6 % (2.6-8.5); Platelet Count Result 254 k/mm3 (150-375); Red Blood Count 4.95 M/mm3 (4.6-6.20); Red Cell Distribution Width 13.9 % (11.5-14.5); White Blood Count 7.9 K/mm3 (4.5-10.0)
[2024-05-16 19:28] LABS: Add Urine Microscopic? NO; Appearance Urine Clear (Clear); Bilirubin Urine Negative (Negative); Blood Urine Negative (Negative); Color Urine Yellow (Yellow); Glucose Urine UA Negative (Negative); Ketones Urine Negative (Negative); Leukocyte Esterase Ur Negative LEU/UL (Negative); Nitrate Urine Negative (Negative); Protein Urine Negative (Negative); Specific Grav Ur 1.004 (1.001-1.035); Urobilinogen Urine 0.2 mg/dL (<2.0); pH Urine 6.5 (5.0-9.0)
[2024-05-16 19:37] LABS: Alanine Aminotransferase 19 U/L (6-50); Albumin Level 5.2 g/dL (3.5-5.1); Alkaline Phosphatase 73 U/L (38-126); Anion Gap 13 mmol/L (4-12); Aspartate Amino Transferase 31 U/L (17-59); Bilirubin,Total 0.6 mg/dL (0.2-1.3); Blood Urea Nitrogen 11 mg/dL (9-20); Calcium 9.8 mg/dL (8.4-10.2); Carbon Dioxide 26 mmol/L (22-30); Chloride 102 mmol/L (98-107); Creatine Kinase 109 U/L (55-170); Estimated CRCL calculation 88 ml/min; Estimated Glomerular Filt Rate > 60; Glucose 97 mg/dL (65-110); Magnesium 2.2 mg/dL (1.6-2.3); Phosphorus 2.1 mg/dL (2.5-4.5); Sodium 141 mmol/L (137-145)
[2024-05-16 19:43] LABS: INR 1.1; Partial Thromboplastin Time 26.7 Seconds (22.3-36.8); Prothrombin Time 14.3 Seconds (11.1-14.7)
--- NOTE | 2024-05-16 19:44 | PCRCNOTE ---
at 1908, pt was ordered an ABG. Patient was walking around the halls and room, talking, agitated. ABG not done at this time. Physician aware.
[2024-05-16 19:51] LABS: Amphetamine Screen Urine Positive (Negative); Barbiturate Screen Urine Negative (Negative); Benzodiazepines Screen Urine Negative (Negative); Cannabinoid Screen Urine Positive (Negative); Cocaine Screen Urine Negative (Negative); Methadone Screen Urine Negative (Negative); Opiate Screen Urine Negative (Negative); Phencyclidine Screen Urine Negative (Negative)
[2024-05-16 19:57] LABS: Acetaminophen < 10 ug/mL (10-30); Ethanol 268 mg/dL (<10)
[2024-05-16 19:59] LABS: Lactic Acid Reflex 2.9 mmol/L (0.7-2.0)
--- NOTE | 2024-05-16 20:13 | ECG_ITS ---
Test Date: 2024-05-16 21:06:20 Measurements Intervals [place] Rate: 87 P: 69 AR: 154 QRS: 89 QRSD: 104 T: 72 QT: 413 QTc: 499 Interpretive Statements SINUS RHYTHM NORMAL ECG Compared to ECG 05/16/2024 18:55:31 HEART RATE HAS DECREASED Electronically Signed On 05-17-2024 05:57:02 [employer] by Sami Lu D.O.
[2024-05-16] MEDS: SODIUM CHLORIDE 0.9% IV 1,000 ML 999 ML IV CONT ×2 (21:26→23:22)
[2024-05-16 21:33] LABS: Fractional Inspired Oxygen 21 %; HCO3 VBG 17.7 mEq/l (24.0-30.0); PCO2 VBG 32.7 mmHg (42.0-48.0); PO2 VBG 65.6 mmHg (35.0-45.0); pH VBG 7.352 (7.300-7.400)
[2024-05-16 21:34] LABS: Device ROOM AIR
--- NOTE | 2024-05-16 21:39 | PC.NURSE ---
Pt started convulsing while this RN was at bedside. EDP's Sushma, Dr. Zamorano, and Dr. Hunt came to bedside. Pt O2 dropped to 88%, while getting BVM set up pt stopped convulsing and o2 sats came back up to 97%. No further orders at this time. Sitter remains at pt bedside.
--- NOTE | 2024-05-16 22:10 | PC.NURSE ---
Pt started seizing, edp [facility] notified. Pt turned to left side, suction set up, repeat bp 91/66
[2024-05-16] MEDS: LACTATED RINGERS 1,000 ML 125 ML IV CONT (22:15)
[2024-05-16] MEDS: LORazepam INJ (*CRX) 2 MG/ML VIAL IV PUSH (22:34)
--- NOTE | 2024-05-16 22:38 | ECG_ITS ---
Test Date: 2024-05-16 21:33:34 Measurements Intervals [place] Rate: 89 P: 81 NE: 144 QRS: 100 QRSD: 106 T: 64 QT: 411 QTc: 500 Interpretive Statements SINUS RHYTHM RIGHT AXIS DEVIATION MINIMAL Q WAVES- INFERIOR LEADS NONSPECIFIC T-WAVE ABNORMALITY- HIGH LATERAL LEADS BORDERLINE ECG Compared to ECG 05/16/2024 21:06:20 NO SIGNIFICANT CHANGE Electronically Signed On 05-17-2024 05:59:03 ENVIRONMENTAL HEALTH AND SAFETY MANAGER by Sami Lu D.O.
--- NOTE | 2024-05-16 22:41 | PC.NURSE ---
Pt's grandfather that has been housing pt would like to be notified w/ updates. Phone number is [phone].
[2024-05-16 22:45] LABS: Reflex Lactic Acid Yes or No Add Lactic
--- NOTE | 2024-05-16 22:45 | ECG_ITS ---
Test Date: 2024-05-16 22:45:47 Measurements Intervals [place] Rate: 86 P: 67 [place]: 174 QRS: 96 QRSD: 106 T: 54 QT: 420 QTc: 503 Interpretive Statements SINUS RHYTHM RIGHT AXIS DEVIATION MINIMAL Q WAVES- INFERIOR LEADS NONSPECIFIC T-WAVE ABNORMALITY- LAT/HIGH LAT LEADS PROLONGED QT INTERVAL Compared to ECG 05/16/2024 21:33:34 Prolonged QT interval now present Electronically Signed On 05-17-2024 11:50:41 RAIL TRACTOR OPERATOR by Sami Lu D.O.
--- NOTE | 2024-05-16 22:48 | ADMGEN ---
This patient, Mili Shah, was admitted to Intensive Care Unit-4. Patient/family oriented to hospital policies and general routines including ID bracelet, bed and alarms, visiting hours, pain management, procedures, bathroom and other care routines, personal items, smoking policy, room service/diet, and visiting hours. Information on how to activate the Rapid Response Team has been discussed. Patient/Family are encouraged to report perceived risks to care and to ask questions if they do not understand what they are told or what they should do.
--- NOTE | 2024-05-16 23:40 | PC.NURSE ---
RN placed call to patient's mom, unable to reach via phone. RN unable to recall patient history for admission. ICU rn discharge, [facility]. Unable to confirm home medication list. Dr. Cerna notified.
[2024-05-16 23:59] LABS: Lactic Acid 4.4 mmol/L (0.7-2.0)
[2024-05-17] VITALS (68 sets, daily range): BP systolic 85–144; BP diastolic 46–91; PULSE 67–98; RESP 14–26; TEMP 36.2–37.8; O2SAT 98–100; BMI 20.1
[2024-05-17] MEDS: NOREPINEPHRINE 8 MG/D5W 250 ML 8 MG/250 ML BAG 9.38 MG IV CONT (00:06)
[2024-05-17] MEDS: RAPID SEQUENCE INTUBATION KIT 1 EACH (00:33)
[2024-05-17] MEDS: PROPOFOL IV EMULSION 100 ML 2.02 MG IV CONT (00:35)
[2024-05-17 00:43] LABS: Salicylate < 1.0 mg/dL (2-20)
[2024-05-17] MEDS: MIDAZOLAM HCL (*CRX) 2 MG/2 ML VIAL 4 MG IV PUSH (01:20)
[2024-05-17] MEDS: levETIRAcetam 1500MG/NACL100ML 1,500 MG/100 ML BAG 400 MG IVPB (01:32)
[2024-05-17] MEDS: MIDAZOLAM 100MG/NS 100ML(*CRX) 100 MG/100 ML BAG IV CONT (01:55)
[2024-05-17 02:19] LABS: Alveolar/Arterial O2 Gradient 66.9 mmHg; Base Excess ABG -5.2 mEq/l (+/-2.0); Carboxyhemoglobin 0.3 % THb (0-2.0); Fractional Inspired Oxygen 50 %; HCO3 ABG 17.7 mEq/l (22.0-26.0); Methemoglobin ABG 0.2 %THb (0-1.5); Oxygen Content ABG 18.2 %vol (16.0-22.0); Oxygen Saturation ABG 99.6 % (95.0-100.0); Oxyhemoglobin 99.1 % THb (90.0-100.0); PCO2 ABG 27.3 mmHg (35.0-45.0); PO2 ABG 258.9 mmHg (80.0-100.0); PO2 FiO2 Ratio Arterial Blood 5.18 %; Reduced Hemoglobin 0.4 %THb (0-5.0); Total Hemoglobin 12.6 g/dL (12.0-18.0)
[2024-05-17 02:21] LABS: Device VENTILATOR; Modified Allen's Test Pass; Site Drawn RIGHT RADIAL
[2024-05-17 02:22] LABS: Arterial Blood Gas PEEP 5 cmH2O; Arterial Blood Gas Tidal Volume 540 ml; Arterial Blood Gas Vent Mode CMV; Arterial Blood Gas Ventilator rate 18 /MIN
--- NOTE | 2024-05-17 02:41 | P.HP_ITS ---
H&P: HPI History of Present Illness Date/Time: 05/17/24 02:41 Chief Complaint: OD Narrative: This is a 23-year-old male with past medical history significant for alcohol abuse, amphetamine abuse, patient overdosed on gabapentin and fluoxetine presented to emergency room with his grandfather. Poison Control was called. patient also uses amphetamine there is also concomitant use of alcohol 1/5 of vodka daily. Patient has been admitted to ICU. Once in ICU patient had several episodes of seizure requiring intubation for airway protection and sedation. Review of Systems Review of Systems: ROS unobtainable: Yes unobtainable due to mental status PMFSH Social History Social History Smoking status: Unknown if ever smoked Alcohol intake: current Substance use: current Substance use type: marijuana, amphetamines, opiates and methamphetamine Last use: 05/16/24 Spiritual care concerns: No Meds Home Medications and Allergies Home Medications Medication Instructions Recorded Confirmed Type buprenorphine 8 mg-naloxone 2 mg tablet sublingual 07/18/22 History sublingual tablet dextroamphetamine-amphetamine 10 07/18/22 History mg tablet (Adderall) escitalopram oxalate 10 mg tablet mg 07/18/22 History (Lexapro) ondansetron HCl 4 mg tablet mg 07/18/22 History bupropion HCl 150 mg tablet,12 hr 150 mg PO DAILY 05/16/24 History sustained-release fluoxetine 10 mg capsule mg 05/16/24 History fluoxetine 20 mg capsule mg 05/16/24 History fluoxetine 40 mg capsule mg 05/16/24 History gabapentin 100 mg capsule mg 05/16/24 History Allergies Allergy/AdvReac Type Severity Reaction Status Date / Time No Known Allergies Allergy Verified 05/16/24 18:54 Vital Signs Vital Signs - 24 hr 05/16/24 18:36 05/16/24 20:07 05/16/24 20:07 Temperature 97.8 F Pulse Rate 130 H Respiratory Rate 18 15 Blood Pressure 130/91 H Pulse Oximetry 97 98 Oxygen Delivery Room Air Room Air Oxygen Flow Rate Fraction of Inspired Oxygen 05/16/24 21:36 05/16/24 20:40 05/16/24 22:13 Temperature Pulse Rate 87 92 Respiratory Rate 12 14 Blood Pressure 111/91 H 115/82 91/66 L Pulse Oximetry 96 99 Oxygen Delivery Oxygen Flow Rate Fraction of Inspired Oxygen 05/16/24 22:13 05/16/24 22:37 05/16/24 22:45 Temperature 98.3 F Pulse Rate 89 86 Respiratory Rate 21 H 22 H Blood Pressure 104/74 95/73 L 90/64 L Pulse Oximetry 95 94 Oxygen Delivery Oxygen Flow Rate Fraction of Inspired Oxygen 05/16/24 23:15 05/16/24 23:23 05/16/24 23:23 Temperature Pulse Rate 87 87 87 Respiratory Rate 22 H 21 H 21 H Blood Pressure 83/47 L 95/47 L Pulse Oximetry 99 99 99 Oxygen Delivery Nasal Cannula Oxygen Flow Rate 4 Fraction of Inspired Oxygen 05/16/24 23:30 05/16/24 23:46 05/16/24 23:54 Temperature Pulse Rate 88 88 88 Respiratory Rate 22 H 22 H 19 Blood Pressure 85/51 L 86/53 L 80/41 L Pulse Oximetry 99 99 99 Oxygen Delivery Oxygen Flow Rate Fraction of Inspired Oxygen 05/17/24 00:06 05/17/24 00:00 05/17/24 00:19 Temperature 97.4 F L Pulse Rate 88 88 97 Respiratory Rate 19 25 H Blood Pressure 85/46 L 85/46 L 144/79 H Pulse Oximetry 98 99 Oxygen Delivery Oxygen Flow Rate Fraction of Inspired Oxygen 05/17/24 00:19 05/17/24 00:35 05/17/24 01:00 Temperature Pulse Rate 98 93 89 Respiratory Rate 18 20 Blood Pressure 144/79 H Pulse Oximetry Oxygen Delivery Oxygen Flow Rate Fraction of Inspired Oxygen 05/17/24 01:06 05/17/24 01:11 05/17/24 01:16 Temperature Pulse Rate 89 85 87 Respiratory Rate 22 H 20 22 H Blood Pressure Pulse Oximetry Oxygen Delivery Oxygen Flow Rate Fraction of Inspired Oxygen 05/17/24 01:21 05/17/24 01:26 05/17/24 01:31 Temperature Pulse Rate 85 84 86 Respiratory Rate 20 20 22 H Blood Pressure Pulse Oximetry Oxygen Delivery Oxygen Flow Rate Fraction of Inspired Oxygen 05/17/24 01:36 05/17/24 01:45 05/17/24 01:55 Temperature Pulse Rate 88 88 78 Respiratory Rate 24 H 22 H 20 Blood Pressure Pulse Oximetry Oxygen Delivery Oxygen Flow Rate Fraction of Inspired Oxygen 05/17/24 02:00 05/17/24 02:00 05/17/24 00:00 Temperature 97.4 F L Pulse Rate 80 80 91 Respiratory Rate 20 20 Blood Pressure 96/57 L 85/46 L Pulse Oximetry 98 Oxygen Delivery Oxygen Flow Rate Fraction of Inspired Oxygen 05/17/24 00:15 05/17/24 00:26 05/17/24 00:30 Temperature Pulse Rate 98 93 94 Respiratory Rate 17 16 25 H Blood Pressure 144/79 H 123/81 116/75 Pulse Oximetry 100 99 98 Oxygen Delivery Oxygen Flow Rate Fraction of Inspired Oxygen 05/17/24 00:35 05/17/24 00:37 05/17/24 00:40 Temperature Pulse Rate 93 93 93 Respiratory Rate 14 14 16 Blood Pressure 111/72 111/75 114/74 Pulse Oximetry 100 100 100 Oxygen Delivery Oxygen Flow Rate Fraction of Inspired Oxygen 05/17/24 00:45 05/17/24 00:50 05/17/24 00:55 Temperature Pulse Rate 93 91 92 Respiratory Rate 18 18 18 Blood Pressure 120/78 122/83 123/87 Pulse Oximetry 100 100 100 Oxygen Delivery Oxygen Flow Rate Fraction of Inspired Oxygen 05/17/24 01:00 05/17/24 01:05 05/17/24 01:11 Temperature Pulse Rate 90 89 85 Respiratory Rate 18 18 22 H Blood Pressure 122/83 124/91 H 111/80 Pulse Oximetry 100 100 100 Oxygen Delivery Oxygen Flow Rate Fraction of Inspired Oxygen 05/17/24 00:43 05/16/24 23:40 Temperature Pulse Rate 80 88 Respiratory Rate 22 H Blood Pressure 85/51 L Pulse Oximetry 100 Oxygen Delivery Mechanical Ventilation Oxygen Flow Rate Fraction of Inspired Oxygen 50 Exam Narrative: Patient is thrashing about, fidgety, restless Const: General: comfortable, no acute distress, well developed, alert, awake and average body habitus Nutritional Appearance: average body habitus Orientation/consciousness: Other orientation findings ( restless, mumbling words, pressure speech.) HENMT: Head: normal to inspection, normocephalic and atraumatic Ears: hearing grossly normal bilaterally Face/Nose/Sinus: normal facial exam Face and sinus: normal facial exam Eyes: General: appearance normal, both eyes and all related structures Pupils: Equal, round and reactive pupils present, Dilated pupils bilaterally and Pupil size comments ( 4 mm) EOM: EOMs intact bilaterally Neck: Neck: full ROM, no lymphadenopathy and no JVD Thyroid: thyroid normal Lymphatic: no lymphadenopathy noted Resp: Effort & Inspection: normal respiratory effort and able to speak in complete sentences Auscultation: clear to auscultation bilaterally Cardio: Jugular venous distension: no JVD Rate: regular rate Rhythm: regular rhythm Heart sounds: S1 normal heart sound present and S2 normal heart sound present GI: GI Palp: Yes Soft to palpation and Yes No hepatosplenomegaly present : General: Yes deferred Skin: Rashes: no rashes Wounds: no wounds Neuro: General: oriented to person, moves all extremities, no focal motor deficits, CN's II-XI intact bilaterally and Unable to assess gait Cranial nerves: Yes CN's II-XII intact bilaterally and Yes Equal, round and reactive pupils present Cognition (Neuro): abnormal cognition Speech: Other speech findings present (Neuro) ( pressured speech) Gait exam (Neuro): Normal gait present ( at presentation) Motor exam (neuro): 5/5 motor strength present throughout Left pupil size: 0.4 cm Right pupil size: 0.4 cm Extrem: General: normal to inspection, full ROM, no joint enlargement and no pedal edema H&P: Results Labs Labs: Short CBC 05/16/24 Range/Units 19:15 WBC 7.9 (4.5-10.0) K/mm3 Hgb 16.0 (14.0-18.0) g/dL Hct 46.9 (42.0-52.0) % Plt Count 254 (150-375) k/mm3 BMP 05/16/24 19:15 Sodium 141 Potassium 4.0 Chloride 102 Carbon Dioxide 26 BUN 11 Creatinine 1.10 Glucose 97 Calcium 9.8 Cardiac Enzymes 05/16/24 Range/Units 19:15 Total Creatine Kinase 109 (55-170) U/L Liver Function 05/16/24 Range/Units 19:15 Total Bilirubin 0.6 (0.2-1.3) mg/dL AST 31 (17-59) U/L ALT 19 (6-50) U/L Alkaline Phosphatase 73 (38-126) U/L Albumin 5.2 H (3.5-5.1) g/dL Urine 05/16/24 Range/Units 19:15 Urine Color Yellow (Yellow) Urine Appearance Clear (Clear) Urine pH 6.5 (5.0-9.0) Ur Specific [place] 1.004 (1.001-1.035) Urine Protein Negative (Negative) mg/dL Urine Glucose (UA) Negative (Negative) mg/dL Assessment and Plan Assessment and plan (1) Drug overdose: Qualifiers: Encounter type: initial encounter Injury intent: undetermined intent Qualified Code(s): T50.904A - Poisoning by unspecified drugs, medicaments and biological substances, undetermined, initial encounter Code(s): T50.901A - Poisoning by unspecified drugs, medicaments and biological substances, accidental (unintentional), initial encounter Status: Acute Assessment and Plan: admit to ICU now on ventilator support supportive care poison control called Patient overdosed on gabapentin and fluoxetine (2) Alcohol dependence: Code(s): F10.20 - Alcohol dependence, uncomplicated Status: Acute Assessment and Plan: referral to 12 step program (3) Amphetamine abuse: Code(s): F15.10 - Other stimulant abuse, uncomplicated Status: Acute Assessment and Plan: continue to monitor Hospitalist MIPS Advance Care Plan I have confirmed that the patient's Advanced Care Plan is present, code status is documented, or surrogate decision maker is listed in patient medical record.: Yes Medication Reconciliation I have utilized all available resources to obtain, update and review the patients current medications (includes all prescriptions, OTC, herbals, cannabis, and nutritional supplements).: Yes
--- NOTE | 2024-05-17 02:41 | P.PCNBED_ITS ---
Procedures Central Line Placement Right IJ: Consent: I have discussed with the patient and/or surrogate, the non-emergent placement of a central venous catheter, including its clinical necessity/indication and associated potential risks and complications. The patient and/or surrogate understand(s) and acknowledge(s) the need to proceed with central venous catheter insertion as an important element of the patient's clinical management. Time Out Performed: Yes Patient Position: trendelenburg Patient placed on monitor/pulse ox: Yes Provider Prep: mask, sterile gown, sterile gloves, Max. sterile barrier precautions, cap and hand hygiene with conventional soap/water or alcohol based hand rub Central line prep: 2% Chlorhexidine scrub Sterile US Technique with sterile gel/sterile probe covers: Yes Central line lumen inserted: triple Maltese: 16 Length (cm): 16 Depth of Insertion (cm): 15 Post Procedure: sutured in place, good blood return, all ports aspirated, flushed, capped, transparent dressing and aseptic technique maintained throughout procedure Post procedure x-ray: tip of catheter in good position and no pneumothorax seen Patient tolerated procedure: well and no complications Complications: none and pneumothorax Intubation Intubation Date: 05/16/24 Intubation Time: 12:45 Sedative: etomidate Mg given: 15 Paralytic: rocuronium Mg given: 60 Laryngoscope: fiber optic video scope Assist device used: fiber optic device ET tube size: 7.5 Tube secured depth (cm): 28 Tube secured location: lips Tube placement confirmation: visualized tube passing through cords, equal breath sounds bilaterally, no breath sounds over epigastrium and confirmation by capnometry Patient tolerated procedure: well and no complications Intubation complications: none
--- NOTE | 2024-05-17 02:56 | PC.NURSE ---
Patient had a 15 second seizure at 2332. Dr. Cerna notified and received orders to administer 2 mg IVP Ativan. Patient's became hypotensive with blood pressures 80's/40's. Patient bolused [address] Ceran. Pressures continued to drop with diastolic in 30's. Dr. Cerna notified and received orders to initiate Levophed peripherally until a central line could be placed. Dr. Cerna notified Dr. Wright of patient's condition and patient was emergently placed on life support due to deteriorating status. Levophed placed on hold prior to intubation due to stabilized blood pressures. Patient received 15 mg Etomidate and 60 mg of Rocuronium at 0032 and 0033 consecutively. Patient intubated at 0034. Propofol initiated at time of intubation. Central line placed at [address] Cerna with this RN assisting. Patient continued to experience agitation and received a one time order of 4 mg IVP Versed from Dr. Cerna. Dr. Wright notified of patient experiencing ventilator asynchrony with Propofol at 50 mcg/kg/min and received orders to initiate a Versed drip per protocol. Will continue to monitor.
[2024-05-17 03:15] LABS: Triglycerides 77 mg/dL (<150)
[2024-05-17] MEDS: LACTATED RINGERS 1,000 ML 125 ML IV CONT ×3 (03:54→20:00)
[2024-05-17] MEDS: PROPOFOL IV EMULSION 100 ML 20.19 MG IV CONT ×4 (05:06→19:39)
[2024-05-17 06:25] LABS: Hematocrit 35.3 % (42.0-52.0); Hemoglobin 11.9 g/dL (14.0-18.0); Mean Corpuscular HGB Conc 33.7 g/dl (32-36); Mean Corpuscular Hemoglobin 32.3 pg (26-34); Mean Corpuscular Volume 95.9 fl (80-100); Platelet Count Result 169 k/mm3 (150-375); Red Blood Count 3.68 M/mm3 (4.6-6.20); Red Cell Distribution Width 14.2 % (11.5-14.5); White Blood Count 9.4 K/mm3 (4.5-10.0)
[2024-05-17 06:35] LABS: Alanine Aminotransferase 15 U/L (6-50); Albumin Level 3.3 g/dL (3.5-5.1); Alkaline Phosphatase 58 U/L (38-126); Anion Gap 9 mmol/L (4-12); Aspartate Amino Transferase 25 U/L (17-59); Bilirubin,Total 0.4 mg/dL (0.2-1.3); Blood Urea Nitrogen 7 mg/dL (9-20); Carbon Dioxide 21 mmol/L (22-30); Chloride 109 mmol/L (98-107); Estimated CRCL calculation 121 ml/min; Estimated Glomerular Filt Rate > 60; Glucose 68 mg/dL (65-110); Magnesium 1.5 mg/dL (1.6-2.3); Phosphorus 2.4 mg/dL (2.5-4.5); Potassium 3.3 mmol/L (3.4-5.0); Sodium 139 mmol/L (137-145)
[2024-05-17 06:45] LABS: Lactic Acid Reflex 4.2 mmol/L (0.7-2.0)
[2024-05-17] MEDS: DEXTROSE 50% 25 GM/50 ML SYRINGE IV PUSH (06:47)
[2024-05-17] MEDS: MAGNESIUM SULF 2 GM/WATER 50ML 2 GM/50 ML BAG IVPB (06:48)
[2024-05-17 06:59] LABS: Glucose Point of Care 214 mg/dl (65-105)
[2024-05-17] MEDS: PANTOPRAZOLE SODIUM IV 40 MG VIAL IV PUSH (09:14)
[2024-05-17] MEDS: ENOXAPARIN 40 MG/0.4 ML SYRINGE SUB-Q (09:14)
[2024-05-17] MEDS: POTASSIUM BICARBONATE 25 MEQ TABEF 50 MEQ FEED TUBE (09:14)
[2024-05-17] MEDS: MINERAL OIL/WHITE PETROLATUM OINTMENT 1 APPLIC EACH EYE ×2 (09:14→21:29)
[2024-05-17] MEDS: POTASSIUM PHOS,M-BASIC-D-BASIC 15 MMOL in SODIUM CHLORIDE 0.9% IV 250 ML 63.75 MMOL IVPB (09:15)
[2024-05-17] MEDS: FOLIC ACID 1 MG/0.2 ML INJ IV PUSH (09:15)
[2024-05-17 09:39] LABS: Glucose Point of Care 82 mg/dl (65-105)
--- NOTE | 2024-05-17 09:39 | P.CONIN_ITS ---
Assessment and Plan Assessment and plan (1) Alcohol intoxication: Code(s): F10.929 - Alcohol use, unspecified with intoxication, unspecified Status: Acute Assessment and Plan: Continue IV fluids. Thiamine folic acid (2) Status epilepticus: Code(s): G40.901 - Epilepsy, unspecified, not intractable, with status epilepticus Status: Acute Assessment and Plan: Status epilepticus secondary to gabapentin overdose Patient now intubated and sedated on mechanical ventilation Continue propofol and Versed Consult neurology Check CT head and EEG Will try to transfer to tertiary facility for continuous EEG monitoring (3) Drug overdose: Qualifiers: Encounter type: initial encounter Injury intent: undetermined intent Qualified Code(s): T50.904A - Poisoning by unspecified drugs, medicaments and biological substances, undetermined, initial encounter Code(s): T50.901A - Poisoning by unspecified drugs, medicaments and biological substances, accidental (unintentional), initial encounter Status: Acute Assessment and Plan: Overdose of fluoxetine and gabapentin. Patient was also intoxicated with alcohol. Patient's UDS was also positive for amphetamine and cannabinoids Poison Control notified Now sedated, on mechanical ventilation and on IV fluids (4) Acute respiratory failure: Code(s): J96.00 - Acute respiratory failure, unspecified whether with hypoxia or hypercapnia Status: Acute Assessment and Plan: Acute respiratory failure secondary to status epilepticus Now intubated and sedated ABG and chest x-ray reviewed Decrease tidal volume to 450 and increased rate. Weaning will depend on neurological improvement. Plan DVT prophylaxis -Lovenox Stress ulcer prophylaxis -PPI Nutrition -will start Tube Feeds Code Status - Full Code Total Critical Care Time - 40 minutes Due to a high probability of clinically significant, life threatening deterioration, the patient required my highest level of preparedness to intervene emergently and I personally spent this critical care time directly and personally managing the patient. This critical care time included obtaining a history; examining the patient; pulse oximetry; ordering and review of studies; arranging urgent treatment with development of a management plan; evaluation of patient's response to treatment; frequent reassessment; and discussions with other providers. It was exclusive of separately billable procedures and treating other patients and teaching time. Please see Assessment and Plan section and the rest of the note for further information on patient assessment and treatment [facility] Director Consult Note Consult date: 05/17/24 Reason for consult: Drug overdose, status epilepticus HPI: Mili Shah is a 23 year old male was brought by EMS after an overdose. Patient to significant amount of Loxitane and gabapentin around 6:00 p.m. he also drank alcohol 5th of vodka. He denied any suicidal homicidal ideation in the ER. He admitted drinking 5th of vodka every day last 2 months. He has history of abuse of methamphetamine and opioids in the past. He was admitted 6 months ago with her and overdose as per his history to the ER physician. In ER patient is alert oriented x3 and appeared intoxicated and tachycardic. He was afebrile with unremarkable labs. EKG showed sinus tachycardia with normal QRS normal QTC. UDS was positive for amphetamine and cannabinoids. CK was normal ethanol level was 268 Mag was normal TSH 1.8. Patient was given IV fluids bolus and started on maintenance IV fluids. Patient was admitted in the ICU bed as at the step-down patient for monitoring along with suicide precautions. Post admission patient deteriorated and started having seizures and had multiple episodes of seizures and was hypotensive. He was intubated for airway protection and was started on propofol and Versed drip. This morning when I evaluated the patient he is sedated intubated and on mechanical ventilation. History not obtainable and was obtained from sign-out from ER physician, hospitalist physician and chart review. Review of Systems Review of Systems: ROS unobtainable: Yes unobtainable due to endotracheal tub e, unobtainable due to medical condition and unobtainable due to mental status PMFSH Past Medical History Medical History (Updated 05/17/24 @ 09:44 by Daniel Wright MD) Alcohol abuse Alcohol intoxication Polysubstance abuse Social History Social History Smoking status: Unknown if ever smoked Alcohol intake: current Substance use: current Substance use type: marijuana, amphetamines, opiates and methamphetamine Last use: 05/16/24 Spiritual care concerns: No Meds Home Medications and Allergies Home Medications Medication Instructions Recorded Confirmed Type buprenorphine 8 mg-naloxone 2 mg tablet sublingual 07/18/22 History sublingual tablet dextroamphetamine-amphetamine 10 07/18/22 History mg tablet (Adderall) escitalopram oxalate 10 mg tablet mg 07/18/22 History (Lexapro) ondansetron HCl 4 mg tablet mg 07/18/22 History bupropion HCl 150 mg tablet,12 hr 150 mg PO DAILY 05/16/24 History sustained-release fluoxetine 10 mg capsule mg 05/16/24 History fluoxetine 20 mg capsule mg 05/16/24 History fluoxetine 40 mg capsule mg 05/16/24 History gabapentin 100 mg capsule mg 05/16/24 History Allergies Allergy/AdvReac Type Severity Reaction Status Date / Time No Known Allergies Allergy Verified 05/16/24 18:54 Vital Signs Vital Signs - 24 hr 05/16/24 18:36 05/16/24 20:07 05/16/24 20:07 Temperature 36.6 C Pulse Rate 130 H Respiratory Rate 18 15 Blood Pressure 130/91 H Pulse Oximetry 97 98 Oxygen Delivery Room Air Room Air Oxygen Flow Rate Fraction of Inspired Oxygen 05/16/24 21:36 05/16/24 20:40 05/16/24 22:13 Temperature Pulse Rate 87 92 Respiratory Rate 12 14 Blood Pressure 111/91 H 115/82 91/66 L Pulse Oximetry 96 99 Oxygen Delivery Oxygen Flow Rate Fraction of Inspired Oxygen 05/16/24 22:13 05/16/24 22:37 05/16/24 22:45 Temperature 36.8 C Pulse Rate 89 86 Respiratory Rate 21 H 22 H Blood Pressure 104/74 95/73 L 90/64 L Pulse Oximetry 95 94 Oxygen Delivery Oxygen Flow Rate Fraction of Inspired Oxygen 05/16/24 23:15 05/16/24 23:23 05/16/24 23:23 Temperature Pulse Rate 87 87 87 Respiratory Rate 22 H 21 H 21 H Blood Pressure 83/47 L 95/47 L Pulse Oximetry 99 99 99 Oxygen Delivery Nasal Cannula Oxygen Flow Rate 4 Fraction of Inspired Oxygen 05/16/24 23:30 05/16/24 23:46 05/16/24 23:54 Temperature Pulse Rate 88 88 88 Respiratory Rate 22 H 22 H 19 Blood Pressure 85/51 L 86/53 L 80/41 L Pulse Oximetry 99 99 99 Oxygen Delivery Oxygen Flow Rate Fraction of Inspired Oxygen 05/17/24 00:06 05/17/24 00:00 05/17/24 00:19 Temperature 36.3 C L Pulse Rate 88 88 97 Respiratory Rate 19 25 H Blood Pressure 85/46 L 85/46 L 144/79 H Pulse Oximetry 98 99 Oxygen Delivery Oxygen Flow Rate Fraction of Inspired Oxygen 05/17/24 00:19 05/17/24 00:35 05/17/24 01:00 Temperature Pulse Rate 98 93 89 Respiratory Rate 18 20 Blood Pressure 144/79 H Pulse Oximetry Oxygen Delivery Oxygen Flow Rate Fraction of Inspired Oxygen 05/17/24 01:06 05/17/24 01:11 05/17/24 01:16 Temperature Pulse Rate 89 85 87 Respiratory Rate 22 H 20 22 H Blood Pressure Pulse Oximetry Oxygen Delivery Oxygen Flow Rate Fraction of Inspired Oxygen 05/17/24 01:21 05/17/24 01:26 05/17/24 01:31 Temperature Pulse Rate 85 84 86 Respiratory Rate 20 20 22 H Blood Pressure Pulse Oximetry Oxygen Delivery Oxygen Flow Rate Fraction of Inspired Oxygen 05/17/24 01:36 05/17/24 01:45 05/17/24 01:55 Temperature Pulse Rate 88 88 78 Respiratory Rate 24 H 22 H 20 Blood Pressure Pulse Oximetry Oxygen Delivery Oxygen Flow Rate Fraction of Inspired Oxygen 05/17/24 02:00 05/17/24 02:00 05/17/24 00:00 Temperature 36.3 C L Pulse Rate 80 80 91 Respiratory Rate 20 20 Blood Pressure 96/57 L 85/46 L Pulse Oximetry 98 Oxygen Delivery Oxygen Flow Rate Fraction of Inspired Oxygen 05/17/24 00:15 05/17/24 00:26 05/17/24 00:30 Temperature Pulse Rate 98 93 94 Respiratory Rate 17 16 25 H Blood Pressure 144/79 H 123/81 116/75 Pulse Oximetry 100 99 98 Oxygen Delivery Oxygen Flow Rate Fraction of Inspired Oxygen 05/17/24 00:35 05/17/24 00:37 05/17/24 00:40 Temperature Pulse Rate 93 93 93 Respiratory Rate 14 14 16 Blood Pressure 111/72 111/75 114/74 Pulse Oximetry 100 100 100 Oxygen Delivery Oxygen Flow Rate Fraction of Inspired Oxygen 05/17/24 00:45 05/17/24 00:50 05/17/24 00:55 Temperature Pulse Rate 93 91 92 Respiratory Rate 18 18 18 Blood Pressure 120/78 122/83 123/87 Pulse Oximetry 100 100 100 Oxygen Delivery Oxygen Flow Rate Fraction of Inspired Oxygen 05/17/24 01:00 05/17/24 01:05 05/17/24 01:11 Temperature Pulse Rate 90 89 85 Respiratory Rate 18 18 22 H Blood Pressure 122/83 124/91 H 111/80 Pulse Oximetry 100 100 100 Oxygen Delivery Oxygen Flow Rate Fraction of Inspired Oxygen 05/17/24 00:43 05/17/24 00:00 05/17/24 02:00 Temperature Pulse Rate 80 88 76 Respiratory Rate Blood Pressure Pulse Oximetry 100 Oxygen Delivery Mechanical Ventilation Oxygen Flow Rate Fraction of Inspired Oxygen 50 05/17/24 01:45 05/17/24 02:00 05/17/24 02:15 Temperature 36.2 C L 36.4 C 36.6 C Pulse Rate 82 80 79 Respiratory Rate 19 18 18 Blood Pressure 103/73 96/57 L 92/59 L Pulse Oximetry 100 100 100 Oxygen Delivery Oxygen Flow Rate Fraction of Inspired Oxygen 05/17/24 02:30 05/17/24 02:45 05/17/24 02:25 Temperature 36.7 C 36.7 C Pulse Rate 77 76 82 Respiratory Rate 18 18 19 Blood Pressure 90/57 L 88/58 L Pulse Oximetry 100 100 Oxygen Delivery Oxygen Flow Rate Fraction of Inspired Oxygen 05/17/24 03:06 05/17/24 03:30 05/17/24 00:35 Temperature 36.8 C 36.8 C Pulse Rate 74 75 Respiratory Rate 18 18 Blood Pressure 89/56 L 97/61 L Pulse Oximetry 100 100 Oxygen Delivery Oxygen Flow Rate Fraction of Inspired Oxygen 50 05/17/24 03:15 05/17/24 04:00 05/17/24 04:00 Temperature Pulse Rate 74 74 Respiratory Rate 18 18 Blood Pressure Pulse Oximetry Oxygen Delivery Oxygen Flow Rate Fraction of Inspired Oxygen 30 05/17/24 04:00 05/17/24 04:00 05/17/24 04:00 Temperature 36.9 C Pulse Rate 74 73 Respiratory Rate 18 18 Blood Pressure 99/68 L Pulse Oximetry 100 100 Oxygen Delivery Mechanical Ventilation Oxygen Flow Rate Fraction of Inspired Oxygen 30 30 05/17/24 04:00 05/17/24 05:00 05/17/24 05:00 Temperature 37.0 C Pulse Rate 74 76 75 Respiratory Rate 18 20 Blood Pressure 91/66 L Pulse Oximetry 100 Oxygen Delivery Oxygen Flow Rate Fraction of Inspired Oxygen 05/17/24 05:06 05/17/24 05:06 05/17/24 02:30 Temperature Pulse Rate 74 74 78 Respiratory Rate 20 20 Blood Pressure Pulse Oximetry 100 Oxygen Delivery Mechanical Ventilation Oxygen Flow Rate Fraction of Inspired Oxygen 30 05/17/24 05:24 05/17/24 05:30 05/17/24 06:00 Temperature Pulse Rate 77 76 78 Respiratory Rate 21 H 20 Blood Pressure Pulse Oximetry 100 Oxygen Delivery Mechanical Ventilation Oxygen Flow Rate Fraction of Inspired Oxygen 25 05/17/24 06:05 05/17/24 06:00 05/17/24 06:08 Temperature 37.8 C H Pulse Rate 79 79 77 Respiratory Rate 19 22 H Blood Pressure 104/59 L Pulse Oximetry 100 Oxygen Delivery Oxygen Flow Rate Fraction of Inspired Oxygen 05/17/24 06:30 05/17/24 04:00 05/17/24 06:00 Temperature Pulse Rate 80 75 80 Respiratory Rate 20 Blood Pressure 99/68 L 104/59 L Pulse Oximetry Oxygen Delivery Oxygen Flow Rate Fraction of Inspired Oxygen 05/17/24 07:00 05/17/24 08:00 05/17/24 07:39 Temperature 37.7 C H Pulse Rate 74 77 77 Respiratory Rate 19 18 Blood Pressure 107/73 Pulse Oximetry 100 100 Oxygen Delivery Mechanical Ventilation Oxygen Flow Rate Fraction of Inspired Oxygen 25 05/17/24 07:39 05/16/24 23:40 Temperature Pulse Rate 88 Respiratory Rate 22 H Blood Pressure 85/51 L Pulse Oximetry 100 Oxygen Delivery Mechanical Ventilation Oxygen Flow Rate Fraction of Inspired Oxygen 25 Exam Narrative: General: Pt is sedated, intubated and on mechanical ventilation Lungs/Chest: Trachea central Coarse BS B/L, No crackles or wheezing. Cardiac: RRR. Normal S1 S2. No murmurs Circulation: Pedal pulses are intact and symmetrical. Abdomen: Decreased bowel sounds. Obese. Soft. NT. ND. Extremities: No clubbing, cyanosis or edema. Warm : Espinoza in place Neurologic: Unable to assess due to sedation. Moves all 4 extremities spontaneously PERRL Results Labs 05/17/24 06:14 05/17/24 06:14 Labs: Impressions Abdomen X-Ray 05/17/24 05:47 Impression: NG tube in satisfactory position. Chest X-Ray 05/17/24 05:47 Impression: Support tubes, as above. Clear lungs. Short CBC 05/16/24 05/17/24 Range/Units 19:15 06:14 WBC 7.9 9.4 (4.5-10.0) K/mm3 Hgb 16.0 11.9 L D (14.0-18.0) g/dL Hct 46.9 35.3 L (42.0-52.0) % Plt Count 254 169 (150-375) k/mm3 BMP 05/16/24 05/17/24 19:15 06:14 Sodium 141 139 Potassium 4.0 3.3 L Chloride 102 109 H Carbon Dioxide 26 21 L BUN 11 7 L Creatinine 1.10 0.80 Glucose 97 68 Calcium 9.8 8.0 L Cardiac Enzymes 05/16/24 Range/Units 19:15 Total Creatine Kinase 109 (55-170) U/L Liver Function 05/16/24 05/17/24 Range/Units 19:15 06:14 Total Bilirubin 0.6 0.4 (0.2-1.3) mg/dL AST 31 25 (17-59) U/L ALT 19 15 (6-50) U/L Alkaline Phosphatase 73 58 (38-126) U/L Albumin 5.2 H 3.3 L (3.5-5.1) g/dL Urine 05/16/24 Range/Units 19:15 Urine Color Yellow (Yellow) Urine Appearance Clear (Clear) Urine pH 6.5 (5.0-9.0) Ur Specific [place] 1.004 (1.001-1.035) Urine Protein Negative (Negative) mg/dL Urine Glucose (UA) Negative (Negative) mg/dL ECG Interpretation: Normal sinus rhythm Hospitalist MIPS Advance Care Plan I have confirmed that the patient's Advanced Care Plan is present, code status is documented, or surrogate decision maker is listed in patient medical record.: Yes Medication Reconciliation I have utilized all available resources to obtain, update and review the patients current medications (includes all prescriptions, OTC, herbals, ca nnabis, and nutritional supplements).: Yes
[2024-05-17 10:43] LABS: Hematocrit 35.2 % (42.0-52.0); Mean Corpuscular HGB Conc 34.1 g/dl (32-36); Mean Corpuscular Hemoglobin 32.3 pg (26-34); Mean Corpuscular Volume 94.6 fl (80-100); Mean Platelet Volume 9.4 fl (7.4-10.4); Platelet Count Result 186 k/mm3 (150-375); Red Blood Count 3.72 M/mm3 (4.6-6.20); Red Cell Distribution Width 14.2 % (11.5-14.5); White Blood Count 9.6 K/mm3 (4.5-10.0)
[2024-05-17 10:45] LABS: Lactic Acid Reflex 1.5 mmol/L (0.7-2.0)
[2024-05-17 10:46] LABS: Alanine Aminotransferase 16 U/L (6-50); Albumin Level 3.3 g/dL (3.5-5.1); Alkaline Phosphatase 63 U/L (38-126); Anion Gap 4 mmol/L (4-12); Aspartate Amino Transferase 26 U/L (17-59); Bilirubin,Total 0.6 mg/dL (0.2-1.3); Blood Urea Nitrogen 7 mg/dL (9-20); Calcium 8.1 mg/dL (8.4-10.2); Carbon Dioxide 26 mmol/L (22-30); Chloride 108 mmol/L (98-107); Estimated CRCL calculation 121 ml/min; Estimated Glomerular Filt Rate > 60; Glucose 65 mg/dL (65-110); Potassium 3.9 mmol/L (3.4-5.0); Sodium 138 mmol/L (137-145)
[2024-05-17 12:28] LABS: Creatine Kinase 90 U/L (55-170); Magnesium 2.2 mg/dL (1.6-2.3)
--- NOTE | 2024-05-17 12:36 | P.NEURO_ITS ---
Neurology EEG Report General Information Date of Study: 05/17/24 TEST Eeg DIAGNOSIS seizures CONDITION OF RECORDING At present patient is on sedation and vent following an overdose on elijah pentin. He was noted to have several back to back seizures before being sedated. EEG NUMBER [id number] CLINICAL HISTORY history of seizures but at present patient in ICU and sedated. EEG DESCRIPTION Whole record consist of low-voltage 15 to 18 hertz per 2nd beta activity without evidence of any focal or generalized slowing or any evidence of paroxysmal activity. Obviously hyperventilation not done and photic stimulation not done. Non paroxysmal. Nonfocal. Nonlateralizing. IMPRESSION No significant abnormalities noted in this tracing which mainly comprises of sedated patient without any focal paroxysmal or slow activity consider the possibility of status epilepticus or focal structural lesion clinical correlation recommended.
[2024-05-17 12:42] LABS: Glucose Point of Care 76 mg/dl (65-105)
[2024-05-17] MEDS: CENTRAL LINE FLUSH 10 ML IV PUSH ×2 (15:41→21:28)
[2024-05-17 16:47] LABS: Glucose Point of Care 79 mg/dl (65-105)
[2024-05-17] MEDS: MIDAZOLAM 100MG/NS 100ML(*CRX) 100 MG/100 ML BAG 8 MG IV CONT (16:48)
[2024-05-17] MEDS: FENTANYL 2,500MCG/NS250ML(*CRX 2,500 MCG/250 ML BAG IV CONT (18:40)
[2024-05-17 21:35] LABS: Glucose Point of Care 103 mg/dl (65-105)
--- NOTE | 2024-05-17 21:38 | PC.NURSE ---
Patient running low grade fever, Dr. Cerna notified, okay for Tylenol per NG tube. Blood Cultures, Xray. Dr. Cerna reviewed Xray, no need for empiric antibiotics at this time.
[2024-05-18] VITALS (56 sets, daily range): BP systolic 102–126; BP diastolic 58–96; PULSE 60–100; RESP 16–31; TEMP 36.3–38.9; O2SAT 92–100
[2024-05-18] MEDS: PROPOFOL IV EMULSION 100 ML 20.19 MG IV CONT ×6 (00:33→23:05)
[2024-05-18 00:41] LABS: Glucose Point of Care 104 mg/dl (65-105)
[2024-05-18] MEDS: LACTATED RINGERS 1,000 ML 125 ML IV CONT ×3 (03:19→19:24)
[2024-05-18] MEDS: MIDAZOLAM 100MG/NS 100ML(*CRX) 100 MG/100 ML BAG 6 MG IV CONT ×2 (03:21→12:41)
[2024-05-18 04:35] LABS: Glucose Point of Care 90 mg/dl (65-105)
[2024-05-18 05:27] LABS: Alveolar/Arterial O2 Gradient 8.7 mmHg; Base Excess ABG -2.6 mEq/l (+/-2.0); Carboxyhemoglobin 0.3 % THb (0-2.0); Fractional Inspired Oxygen 25 %; HCO3 ABG 17.5 mEq/l (22.0-26.0); Methemoglobin ABG 0.1 %THb (0-1.5); Oxygen Content ABG 17.3 %vol (16.0-22.0); Oxygen Saturation ABG 99.2 % (95.0-100.0); Oxyhemoglobin 98.7 % THb (90.0-100.0); PO2 FiO2 Ratio Arterial Blood 5.84 %; Reduced Hemoglobin 0.9 %THb (0-5.0); Total Hemoglobin 12.3 g/dL (12.0-18.0)
[2024-05-18 05:29] LABS: Device VENTILATOR; Modified Allen's Test Pass; PCO2 ABG 19.8 mmHg (35.0-45.0); Site Drawn RIGHT RADIAL; pH ABG 7.565 (7.350-7.450)
[2024-05-18 05:30] LABS: Arterial Blood Gas PEEP 5 cmH2O; Arterial Blood Gas Tidal Volume 450 ml; Arterial Blood Gas Vent Mode CMV; Arterial Blood Gas Ventilator rate 22 /MIN
[2024-05-18] MEDS: CENTRAL LINE FLUSH 10 ML IV PUSH ×3 (05:43→20:17)
[2024-05-18 05:59] LABS: Hemoglobin 11.7 g/dL (14.0-18.0); Mean Corpuscular HGB Conc 34.4 g/dl (32-36); Mean Corpuscular Hemoglobin 32.4 pg (26-34); Mean Corpuscular Volume 94.2 fl (80-100); Mean Platelet Volume 9.2 fl (7.4-10.4); Platelet Count Result 173 k/mm3 (150-375); Red Blood Count 3.61 M/mm3 (4.6-6.20); Red Cell Distribution Width 14.4 % (11.5-14.5); White Blood Count 7.3 K/mm3 (4.5-10.0)
[2024-05-18 06:12] LABS: Alanine Aminotransferase 15 U/L (6-50); Albumin Level 3.3 g/dL (3.5-5.1); Alkaline Phosphatase 63 U/L (38-126); Anion Gap 6 mmol/L (4-12); Aspartate Amino Transferase 23 U/L (17-59); Bilirubin,Total 0.5 mg/dL (0.2-1.3); Blood Urea Nitrogen 6 mg/dL (9-20); Calcium 8.6 mg/dL (8.4-10.2); Carbon Dioxide 24 mmol/L (22-30); Chloride 107 mmol/L (98-107); Creatine Kinase 147 U/L (55-170); Estimated CRCL calculation 158 ml/min; Estimated Glomerular Filt Rate > 60; Glucose 91 mg/dL (65-110); Phosphorus 2.7 mg/dL (2.5-4.5); Potassium 3.4 mmol/L (3.4-5.0); Sodium 137 mmol/L (137-145); Triglycerides 66 mg/dL (<150)
[2024-05-18 08:07] LABS: Glucose Point of Care 83 mg/dl (65-105)
[2024-05-18] MEDS: FOLIC ACID 1 MG/0.2 ML INJ IV PUSH (08:13)
[2024-05-18] MEDS: PANTOPRAZOLE SODIUM IV 40 MG VIAL IV PUSH (08:13)
[2024-05-18] MEDS: ENOXAPARIN 40 MG/0.4 ML SYRINGE SUB-Q (08:13)
[2024-05-18] MEDS: MINERAL OIL/WHITE PETROLATUM OINTMENT 1 APPLIC EACH EYE ×2 (08:28→20:16)
[2024-05-18] MEDS: POTASSIUM CHLORIDE 20 MEQ PACKET (FOR LIQUID) 40 MEQ FEED TUBE (08:41)
[2024-05-18 08:50] LABS: Alveolar/Arterial O2 Gradient 29.2 mmHg; Base Excess ABG -4.2 mEq/l (+/-2.0); Device VENTILATOR; Fractional Inspired Oxygen 25 %; HCO3 ABG 19.4 mEq/l (22.0-26.0); Modified Allen's Test Pass; Oxygen Content ABG 16.9 %vol (16.0-22.0); Oxygen Saturation ABG 98.2 % (95.0-100.0); Oxyhemoglobin 97.5 % THb (90.0-100.0); PO2 ABG 112.2 mmHg (80.0-100.0); PO2 FiO2 Ratio Arterial Blood 4.49 %; Site Drawn RIGHT RADIAL; Total Hemoglobin 12.2 g/dL (12.0-18.0); pH ABG 7.414 (7.350-7.450)
[2024-05-18 08:51] LABS: Arterial Blood Gas PEEP 5 cmH2O; Arterial Blood Gas Tidal Volume 400 ml; Arterial Blood Gas Vent Mode CMV; Arterial Blood Gas Ventilator rate 16 /MIN
--- NOTE | 2024-05-18 09:04 | P.PNINT_ITS ---
Progress Note: A&P Assessment and Plan (1) Acute respiratory failure: Code(s): J96.00 - Acute respiratory failure, unspecified whether with hypoxia or hypercapnia Status: Acute Assessment and Plan: Acute respiratory failure secondary to status epilepticus Now intubated and sedated ABG and chest x-ray reviewed Tidal volume respiratory rate was decreased response to a.m. ABG. I repeated ABG and reviewed. I will decrease tidal volume further to 350 mL Weaning will depend on neurological improvement. (2) Status epilepticus: Code(s): G40.901 - Epilepsy, unspecified, not intractable, with status epilepticus Status: Acute Assessment and Plan: Status epilepticus secondary to gabapentin overdose Patient now intubated and sedated on mechanical ventilation Continue propofol and Versed Consult neurology Head CT was negative acute change EEG No significant abnormalities noted in this tracing which mainly comprises of sedated patient without any focal paroxysmal or slow activity consider the possibility of status epilepticus or focal structural lesion clinical correlation recommended. Patient has been accepted at [facility] but is on waiting list for transfer continues EEG monitoring (3) Drug overdose: Qualifiers: Encounter type: initial encounter Injury intent: undetermined intent Qualified Code(s): T50.904A - Poisoning by unspecified drugs, medicaments and biological substances, undetermined, initial encounter Code(s): T50.901A - Poisoning by unspecified drugs, medicaments and biological substances, accidental (unintentional), initial encounter Status: Acute Assessment and Plan: Overdose of fluoxetine and gabapentin. Patient was also intoxicated with alcohol. Patient's UDS was also positive for amphetamine and cannabinoids Poison Control notified Now sedated, on mechanical ventilation and on IV fluids (4) Alcohol intoxication: Code(s): F10.929 - Alcohol use, unspecified with intoxication, unspecified Status: Acute Assessment and Plan: Continue IV fluids. Thiamine folic acid (5) Polysubstance abuse: Code(s): F19.10 - Other psychoactive substance abuse, uncomplicated Status: Acute Assessment and Plan: Patient has history of polysubstance abuse including methamphetamine, alcohol, opioids. As per patient's grandmother patient has been in rehab multiple times and has been admitted with overdoses in the past. He has tried to commit suicide also in the past. He has history of mood disorder. (6) Suicide attempt: Code(s): T14.91XA - Suicide attempt, initial encounter Status: Acute Assessment and Plan: Patient has history of depression and has history of suicide attempts in the past. He will be evaluated by Psychiatry post extubation once medical issues are resolved (7) Electrolyte abnormality: Code(s): E87.8 - Other disorders of electrolyte and fluid balance, not elsewhere classified Status: Acute Assessment and Plan: Replace low potassium Plan DVT prophylaxis -Lovenox Stress ulcer prophylaxis -PPI Nutrition -continue Tube Feeds Code Status - Full Code I spoke to [facility] transfer center and no EEG monitoring station was available at [facility]. Patient has been accepted at [facility]. Accepting physician Dr. Hanks. patient is on a waiting list at this time. They will call once the bed. I have discussed this with patient's grandmother and discussed risks and benefits of transferring to tertiary facility for continuous EEG monitoring. She verbalized understanding is agreeable to proceed if bed becomes available. Total Critical Care Time - 35 minutes Due to a high probability of clinically significant, life threatening deterioration, the patient required my highest level of preparedness to intervene emergently and I personally spent this critical care time directly and personally managing the patient. This critical care time included obtaining a history; examining the patient; pulse oximetry; ordering and review of studies; arranging urgent treatment with development of a management plan; evaluation of patient's response to treatment; frequent reassessment; and discussions with other providers. It was exclusive of separately billable procedures and treating other patients and teaching time. Please see Assessment and Plan section and the rest of the note for further information on patient assessment and treatment Subjective Date/time seen: 05/18/24 Overnight events reviewed. Afebrile Continues to be on mechanical ventilation 25% FiO2 Continues to be sedated with propofol Versed and fentanyl Continue tube feeds. Good urine output. Other Vitals acceptable Review of Systems Review of Systems: ROS unobtainable: Yes unobtainable due to endotracheal tube, unobtainable due to medical condition and unobtainable due to mental status Exam Narrative: General: Pt is sedated, intubated and on mechanical ventilation Lungs/Chest: Trachea central Coarse BS B/L, No crackles or wheezing. Cardiac: RRR. Normal S1 S2. No murmurs Circulation: Pedal pulses are intact and symmetrical. Abdomen: Decreased bowel sounds.. Soft. NT. ND. Extremities: No clubbing, cyanosis or edema. Warm : Espinoza in place Neurologic: Unable to assess due to sedation. Moves all 4 extremities spontaneously tries to open his eyes on stimulation PERRL Objective Data Vital Signs Vital Signs: Vital Signs - 24 hr 05/17/24 09:39 05/17/24 09:39 05/17/24 09:50 Temperature Pulse Rate 77 77 80 Respiratory Rate 22 H 22 H Blood Pressure Pulse Oximetry 100 Oxygen Delivery Mechanical Ventilation Fraction of Inspired Oxygen 25 05/17/24 10:44 05/17/24 10:00 05/17/24 10:00 Temperature Pulse Rate 78 80 80 Respiratory Rate 22 H 22 H Blood Pressure Pulse Oximetry 100 Oxygen Delivery Mechanical Ventilation Fraction of Inspired Oxygen 25 05/17/24 10:00 05/17/24 10:00 05/17/24 12:00 Temperature 37.6 C H Pulse Rate 72 72 Respiratory Rate 22 H Blood Pressure 110/72 Pulse Oximetry 100 Oxygen Delivery Fraction of Inspired Oxygen 25 05/17/24 12:00 05/17/24 12:00 05/17/24 12:00 Temperature 37.7 C H Pulse Rate 80 80 80 Respiratory Rate 22 H 22 H Blood Pressure 128/70 Pulse Oximetry 100 100 Oxygen Delivery Mechanical Ventilation Fraction of Inspired Oxygen 25 05/17/24 12:58 05/17/24 15:07 05/17/24 14:58 Temperature Pulse Rate 79 76 75 Respiratory Rate 22 H Blood Pressure Pulse Oximetry 100 100 Oxygen Delivery Mechanical Ventilation Mechanical Ventilation Fraction of Inspired Oxygen 25 25 05/17/24 14:58 05/17/24 10:00 05/17/24 12:00 Temperature Pulse Rate 75 80 80 Respiratory Rate 22 H Blood Pressure 110/72 128/70 Pulse Oximetry Oxygen Delivery Fraction of Inspired Oxygen 05/17/24 14:00 05/17/24 16:00 05/17/24 12:00 Temperature Pulse Rate 74 74 80 Respiratory Rate 22 H Blood Pressure 126/82 126/85 Pulse Oximetry Oxygen Delivery Fraction of Inspired Oxygen 05/17/24 14:00 05/17/24 14:45 05/17/24 16:00 Temperature Pulse Rate 82 82 85 Respiratory Rate 22 H 22 H 22 H Blood Pressure Pulse Oximetry Oxygen Delivery Fraction of Inspired Oxygen 05/17/24 12:00 05/17/24 14:00 05/17/24 16:05 Temperature Pulse Rate 80 74 74 Respiratory Rate 22 H 22 H Blood Pressure Pulse Oximetry 100 Oxygen Delivery Mechanical Ventilation Fraction of Inspired Oxygen 25 05/17/24 16:48 05/17/24 16:48 05/17/24 14:00 Temperature 37.5 C Pulse Rate 78 78 74 Respiratory Rate 26 H 26 H 22 H Blood Pressure 126/82 Pulse Oximetry 100 Oxygen Delivery Fraction of Inspired Oxygen 05/17/24 16:00 05/17/24 17:23 05/17/24 14:00 Temperature 37.6 C Pulse Rate 73 84 74 Respiratory Rate 22 H 20 Blood Pressure 126/85 Pulse Oximetry 100 Oxygen Delivery Fraction of Inspired Oxygen 05/17/24 18:40 05/17/24 18:00 05/17/24 16:00 Temperature 37.8 C H Pulse Rate 76 77 Respiratory Rate 22 H 17 Blood Pressure 117/77 Pulse Oximetry 100 Oxygen Delivery Fraction of Inspired Oxygen 25 05/17/24 16:00 05/17/24 16:00 05/17/24 18:00 Temperature Pulse Rate 73 77 Respiratory Rate Blood Pressure Pulse Oximetry Oxygen Delivery Mechanical Ventilation Fraction of Inspired Oxygen 25 05/17/24 18:00 05/17/24 16:00 05/17/24 18:00 Temperature Pulse Rate 77 73 77 Respiratory Rate 20 20 20 Blood Pressure Pulse Oximetry Oxygen Delivery Fraction of Inspired Oxygen 05/17/24 18:41 05/17/24 19:39 05/17/24 19:39 Temperature Pulse Rate 76 82 82 Respiratory Rate 22 H 22 H 22 H Blood Pressure Pulse Oximetry Oxygen Delivery Fraction of Inspired Oxygen 05/17/24 19:41 05/17/24 20:00 05/17/24 20:00 Temperature Pulse Rate 82 85 84 Respiratory Rate 22 H 24 H 24 H Blood Pressure Pulse Oximetry Oxygen Delivery Fraction of Inspired Oxygen 05/17/24 20:00 05/17/24 20:00 05/17/24 20:00 Temperature Pulse Rate 84 84 Respiratory Rate 24 H Blood Pressure Pulse Oximetry Oxygen Delivery Fraction of Inspired Oxygen 25 05/17/24 20:00 05/17/24 20:00 05/17/24 21:00 Temperature 37.8 C H Pulse Rate 84 82 74 Respiratory Rate 24 H 24 H Blood Pressure 122/82 Pulse Oximetry 100 100 98 Oxygen Delivery Mechanical Ventilation Mechanical Ventilation Fraction of Inspired Oxygen 25 25 05/17/24 22:00 05/17/24 22:00 05/17/24 22:00 Temperature 37.3 C Pulse Rate 71 72 72 Respiratory Rate 22 H 22 H Blood Pressure 109/64 Pulse Oximetry 98 Oxygen Delivery Fraction of Inspired Oxygen 05/17/24 22:00 05/17/24 22:00 05/17/24 21:00 Temperature Pulse Rate 72 76 81 Respiratory Rate 22 H 22 H 25 H Blood Pressure Pulse Oximetry Oxygen Delivery Fraction of Inspired Oxygen 05/17/24 23:11 05/18/24 00:00 05/18/24 00:00 Temperature Pulse Rate 67 64 64 Respiratory Rate 22 H 22 H Blood Pressure Pulse Oximetry 99 Oxygen Delivery Mechanical Ventilation Fraction of Inspired Oxygen 25 05/18/24 00:01 05/18/24 00:33 05/18/24 00:33 Temperature Pulse Rate 65 64 64 Respiratory Rate 22 H 22 H 22 H Blood Pressure Pulse Oximetry Oxygen Delivery Fraction of Inspired Oxygen 05/18/24 00:00 05/18/24 00:00 05/18/24 00:00 Temperature 36.3 C L Pulse Rate 65 65 Respiratory Rate 22 H Blood Pressure 122/88 Pulse Oximetry 100 Oxygen Delivery Fraction of Inspired Oxygen 25 05/18/24 00:00 05/18/24 01:00 05/18/24 01:46 Temperature Pulse Rate 64 64 64 Respiratory Rate 22 H 22 H Blood Pressure Pulse Oximetry 100 100 Oxygen Delivery Mechanical Ventilation Mechanical Ventilation Fraction of Inspired Oxygen 25 25 05/18/24 02:00 05/18/24 02:00 05/18/24 02:00 Temperature 36.4 C L Pulse Rate 63 64 66 Respiratory Rate 22 H 22 H Blood Pressure 126/96 H Pulse Oximetry 100 Oxygen Delivery Fraction of Inspired Oxygen 05/18/24 02:00 05/18/24 02:00 05/18/24 03:21 Temperature Pulse Rate 64 64 66 Respiratory Rate 22 H 22 H 22 H Blood Pressure Pulse Oximetry Oxygen Delivery Fraction of Inspired Oxygen 05/18/24 03:21 05/18/24 04:00 05/18/24 04:00 Temperature Pulse Rate 66 60 60 Respiratory Rate 22 H 22 H 22 H Blood Pressure Pulse Oximetry Oxygen Delivery Fraction of Inspired Oxygen 05/18/24 04:00 05/18/24 04:15 05/18/24 04:00 Temperature 36.4 C L Pulse Rate 60 60 62 Respiratory Rate 22 H 22 H 22 H Blood Pressure 119/88 Pulse Oximetry 100 100 Oxygen Delivery Mechanical Ventilation Fraction of Inspired Oxygen 25 05/18/24 04:20 05/18/24 04:30 05/18/24 04:30 Temperature Pulse Rate 63 63 Respiratory Rate 22 H 22 H Blood Pressure Pulse Oximetry Oxygen Delivery Fraction of Inspired Oxygen 25 05/18/24 04:30 05/18/24 04:00 05/18/24 05:35 Temperature Pulse Rate 63 64 67 Respiratory Rate 22 H Blood Pressure Pulse Oximetry 100 Oxygen Delivery Mechanical Ventilation Fraction of Inspired Oxygen 25 05/18/24 06:00 05/18/24 06:00 05/18/24 06:00 Temperature 36.8 C Pulse Rate 67 68 67 Respiratory Rate 22 H 22 H Blood Pressure 122/87 Pulse Oximetry 100 Oxygen Delivery Fraction of Inspired Oxygen 05/18/24 05:00 05/18/24 06:00 05/18/24 08:00 Temperature Pulse Rate 67 68 65 Respiratory Rate 22 H 22 H 16 Blood Pressure Pulse Oximetry Oxygen Delivery Fraction of Inspired Oxygen 05/18/24 08:00 05/18/24 08:00 05/18/24 08:09 Temperature Pulse Rate 65 65 66 Respiratory Rate 16 16 Blood Pressure Pulse Oximetry 100 Oxygen Delivery Mechanical Ventilation Fraction of Inspired Oxygen 25 05/18/24 08:47 05/18/24 08:58 Temperature Pulse Rate 69 71 Respiratory Rate Blood Pressure Pulse Oximetry 100 100 Oxygen Delivery Mechanical Ventilation Mechanical Ventilation Fraction of Inspired Oxygen 25 25 Intake/Output Intake/Output: Intake & Output 05/15/24 05/16/24 05/17/24 05/18/24 23:59 23:59 23:59 23:59 Intake Total 1000 4611.3 1360.5 Output Total 2300 500 Balance 1000 2311.3 860.5 Meds/Results Medications: Active Medications Generic Name Dose Route Start Last Admin Trade Name Freq PRN Reason Stop Dose Admin Acetaminophen 650 mg 05/17/24 21:12 Acetaminophen Elixir 325 Mg/10.15 Ml Udc PO Q4H PRN Mild Pain (1-3) or Fever Dextrose 12.5 gm 05/17/24 08:12 Dextrose 50% 25 Gm/50 Ml Syringe IV PUSH PRN PRN Hypoglycemia Protocol Enoxaparin Sodium 40 mg 05/17/24 09:00 05/18/24 08:13 Enoxaparin 40 Mg/0.4 Ml Syringe SUB-Q 40 mg DAILY ROBERT Administration Folic Acid 1 mg 05/17/24 09:00 05/18/24 08:13 Folic Acid 1 Mg/0.2 Ml Inj IV PUSH 1 mg QAM ROBERT Administration Glucagon 1 mg 05/17/24 08:12 Glucagon For Inj 1 Mg Vial IM PRN PRN Hypoglycemia Protocol Glucose 15 gm 05/17/24 08:12 Glucose Oral Gel 15 Gm Of Glucse In 37.5 Gm Tube PO PRN PRN Hypoglycemia Protocol Lactated Ringer's 1,000 mls @ 125 mls/hr 05/16/24 20:30 05/18/24 03:19 Lr - Lactated Ringers Iv IV CONT 125 mls/hr .Q8H ROBERT Administration Propofol 100 mls @ 20.19 mls/hr 05/17/24 00:40 05/18/24 08:00 Diprivan IV CONT 50 mcg/kg/min .Q4H58M ROBERT 20.19 mls/hr Titration Protocol 50 MCG/KG/MIN Midazolam HCl 100 mg in 100 mls @ 5 mls/hr 05/17/24 01:50 05/18/24 08:00 Versed 100 Mg/Ns 100 Ml IV CONT 5 mg/hr .Q20H ROBERT 5 mls/hr Titration Protocol 5 MG/HR Dextrose 1,000 mls @ 100 mls/hr 05/17/24 08:12 Dextrose 5% 1,000 Ml IVPB PRN PRN Hypoglycemia Protocol Fentanyl Citrate 2,500 mcg in 250 mls @ 2.5 mls/hr 05/17/24 17:45 05/18/24 08:00 Fentanyl 2,500 Mcg/Ns 250 Ml IV CONT 50 mcg/hr .Q72H ROBERT 5 mls/hr Titration Protocol 25 MCG/HR Insulin Aspart 2 - 5 units 05/17/24 09:00 05/18/24 08:14 Insulin Aspart (*Bkc) 100 Units/Ml SUB-Q Not Given Q4HR [facility] Protocol Miscellaneous Information 0 each 05/18/24 00:01 Propofol Renew If Still Needs Or Will Auto D/C XX 06/17/24 00:00 CLARIFY ROBERT Multi-Ingred Cream/Lotion/Oil/Oint 1 applic 05/17/24 09:00 05/18/24 08:28 Mineral Oil/White Petrolatum Ointment EACH EYE 1 applic Q12HR ROBERT Administration Pantoprazole Sodium 40 mg 05/17/24 09:00 05/18/24 08:13 Pantoprazole Sodium Iv 40 Mg Vial IV PUSH 40 mg QAM ROBERT Administration Sodium Chloride 10 ml 05/17/24 14:00 05/18/24 05:43 Central Line Flush IV PUSH 10 ml Q8HR ROBERT Administration Sodium Chloride 20 ml 05/17/24 06:07 Central Line Flush IV PUSH PRN PRN after blood draws Radiology Results: ITS Impressions Abdomen X-Ray 05/17/24 05:47 Impression: NG tube in satisfactory position. Head CT 05/17/24 15:14 IMPRESSION: No acute intracranial findings. Chest X-Ray 05/18/24 06:39 Impression: Clear lungs. Support tubes, as above. Labs Labs: Laboratory Results - last 24 hr 05/17/24 05/17/24 05/17/24 09:37 10:24 10:25 WBC 9.6 RBC 3.72 L Hgb 12.0 L Hct 35.2 L MCV 94.6 MCH 32.3 MCHC 34.1 RDW 14.2 Plt Count 186 MPV 9.4 Puncture Site ABG pH ABG pCO2 ABG pO2 ABG PO2/FiO2 Ratio ABG HCO3 ABG O2 Saturation ABG O2 Content ABG Base Excess A-a Gradient Oxyhemoglobin Carboxyhemoglobin Methemoglobin Reduced Hemoglobin Total Hemoglobin O2 Delivery Device O2 Liters/Min Minute Volume Vent Rate Vent Mode FiO2 Tidal Volume PEEP Peak Inspir Pressure Pressure Support Sodium 138 Potassium 3.9 Chloride 108 H Carbon Dioxide 26 Anion Gap 4 BUN 7 L Creatinine 0.80 Estim Creat Clear Calc 121 Estimated GFR > 60 Glucose 65 POC Capillary Glucose 82 Lactic Acid 1.5 Calcium 8.1 L Phosphorus Magnesium 2.2 Total Bilirubin 0.6 AST 26 ALT 16 Alkaline Phosphatase 63 Total Creatine Kinase 90 Total Protein 6.0 L Albumin 3.3 L Triglycerides 05/17/24 05/17/24 05/17/24 12:33 16:41 21:25 WBC RBC Hgb Hct MCV MCH MCHC RDW Plt Count MPV Puncture Site ABG pH ABG pCO2 ABG pO2 ABG PO2/FiO2 Ratio ABG HCO3 ABG O2 Saturation ABG O2 Content ABG Base Excess A-a Gradient Oxyhemoglobin Carboxyhemoglobin Methemoglobin Reduced Hemoglobin Total Hemoglobin O2 Delivery Device O2 Liters/Min Minute Volume Vent Rate Vent Mode FiO2 Tidal Volume PEEP Peak Inspir Pressure Pressure Support Sodium Potassium Chloride Carbon Dioxide Anion Gap BUN Creatinine Estim Creat Clear Calc Estimated GFR Glucose POC Capillary Glucose 76 79 103 Lactic Acid Calcium Phosphorus Magnesium Total Bilirubin AST ALT Alkaline Phosphatase Total Creatine Kinase Total Protein Albumin Triglycerides 05/18/24 05/18/24 05/18/24 00:34 04:33 05:11 WBC RBC Hgb Hct MCV MCH MCHC RDW Plt Count MPV Puncture Site Right radial ABG pH 7.565 H* ABG pCO2 19.8 L* ABG pO2 146.0 H ABG PO2/FiO2 Ratio 5.84 ABG HCO3 17.5 L ABG O2 Saturation 99.2 ABG O2 Content 17.3 ABG Base Excess -2.6 A-a Gradient 8.7 Oxyhemoglobin 98.7 Carboxyhemoglobin 0.3 Methemoglobin 0.1 Reduced Hemoglobin 0.9 Total Hemoglobin 12.3 O2 Delivery Device Ventilator O2 Liters/Min Not Reportable Minute Volume Not Reportable Vent Rate 22 Vent Mode Cmv FiO2 25 Tidal Volume 450 PEEP 5 Peak Inspir Pressure Not Reportable Pressure Support Not Reportable Sodium Potassium Chloride Carbon Dioxide Anion Gap BUN Creatinine Estim Creat Clear Calc Estimated GFR Glucose POC Capillary Glucose 104 90 Lactic Acid Calcium Phosphorus Magnesium Total Bilirubin AST ALT Alkaline Phosphatase Total Creatine Kinase Total Protein Albumin Triglycerides 05/18/24 05/18/24 05/18/24 05:47 08:01 08:48 WBC 7.3 RBC 3.61 L Hgb 11.7 L Hct 34.0 L MCV 94.2 MCH 32.4 MCHC 34.4 RDW 14.4 Plt Count 173 MPV 9.2 Puncture Site Right radial ABG pH 7.414 ABG pCO2 31.0 L ABG pO2 112.2 H ABG PO2/FiO2 Ratio 4.49 ABG HCO3 19.4 L ABG O2 Saturation 98.2 ABG O2 Content 16.9 ABG Base Excess -4.2 A-a Gradient 29.2 Oxyhemoglobin 97.5 Carboxyhemoglobin Methemoglobin Reduced Hemoglobin Total Hemoglobin 12.2 O2 Delivery Device Ventilator O2 Liters/Min Not Reportable Minute Volume Not Reportable Vent Rate 16 Vent Mode Cmv FiO2 25 Tidal Volume 400 PEEP 5 Peak Inspir Pressure Not Reportable Pressure Support Not Reportable Sodium 137 Potassium 3.4 Chloride 107 Carbon Dioxide 24 Anion Gap 6 BUN 6 L Creatinine 0.60 L Estim Creat Clear Calc 158 Estimated GFR > 60 Glucose 91 POC Capillary Glucose 83 Lactic Acid Calcium 8.6 Phosphorus 2.7 Magnesium 2.0 Total Bilirubin 0.5 AST 23 ALT 15 Alkaline Phosphatase 63 Total Creatine Kinase 147 Total Protein 6.0 L Albumin 3.3 L Triglycerides 66
--- NOTE | 2024-05-18 10:37 | PCFNICU ---
ICU Rounding Note: Pt current nutrition is Vital AF 1.2 at 50 ml/hr. Last recorded weight is 67.5 kg, stable. Bowel Motility: No BM reported. Labs Reviewed:Cr 0.6, Alb 3.3, BUN 6 Meds Noted: NovoLog, Lovenox, Protonix, Propofol 50 comp=206 kcals, Versed, Fentanyl, LR. Skin: WNL Additional Notes: Patient remains intubated. Tube feedings are running at this time of 50 ml/hr of Vital AF 1.2. Total nutrition with propofol infusion= 1853 kcal/83 gm protein/892 ml water. Flush 30 ml q 4hours. Agree with diet orders at this time. Following daily in ICU rounds. Monitor intubation status, diet orders, labs, wt. Follow daily in ICU rounds, follow up every Wednesday and Wednesday.
--- NOTE | 2024-05-18 12:09 | P.CONNEU_ITS ---
Assessment and Plan Assessment and plan (1) Polysubstance abuse: Code(s): F19.10 - Other psychoactive substance abuse, uncomplicated Status: Acute (2) Status epilepticus: Code(s): G40.901 - Epilepsy, unspecified, not intractable, with status epilepticus Status: Acute (3) Alcohol dependence: Code(s): F10.20 - Alcohol dependence, uncomplicated Status: Acute (4) Drug overdose: Qualifiers: Encounter type: initial encounter Injury intent: undetermined intent Qualified Code(s): T50.904A - Poisoning by unspecified drugs, medicaments and biological substances, undetermined, initial encounter Code(s): T50.901A - Poisoning by unspecified drugs, medicaments and biological substances, accidental (unintentional), initial encounter Status: Acute (5) Amphetamine abuse: Code(s): F15.10 - Other stimulant abuse, uncomplicated Status: Acute Plan The patient was not on any chronic anticonvulsant therapy and apparently had numerous seizures while here. The whether this was due to withdrawal from alcohol or effect of various medications or respiratory failure will require some follow-up her EEG performed after admission here did not show any abnormali ty. He attends are being made to have him transferred to [facility] for continuous EEG monitoring. This of course is pending. Alcohol level on admission was 268. Toxicology screen was positive for amphetamines and cannabis The patient is on midazolam and propofol. CT scan of brain was performed did not show any significant abnormalities.I shall be glad to assist from Neurology point of view. Consult date: 05/18/24 HPI: Mili Shah is a 23 year old male With history of alcoholism and polysubstance abuse admitted to the hospital 20 ago he is taking overdose fluoxetine and gabapentin. He also drinks 5th of vodka bottle. Also at did to over using meth amphetamine opioids. He was hospitalized 6 months ago for heroin overdose. Later he had several episodes of seizures and was a intubated admitted to ICU. He could still continues to require fair amount of medications. He was given a single dose of Keppra IV but now on midazolam and propofol. The nursing staff noted that sometimes he does try to partially wake up but he remains unresponsive with sedation. [facility], [facility] Past Medical History Medical History Alcohol abuse Alcohol intoxication Polysubstance abuse Social History Social History Smoking status: Unknown if ever smoked Alcohol intake: current Substance use: current Substance use type: marijuana, amphetamines, opiates and methamphetamine Last use: 05/16/24 Spiritual care concerns: No Meds Home Medications and Allergies Home Medications Medication Instructions Recorded Confirmed Type buprenorphine 8 mg-naloxone 2 mg tablet sublingual 07/18/22 History sublingual tablet dextroamphetamine-amphetamine 10 07/18/22 History mg tablet (Adderall) escitalopram oxalate 10 mg tablet mg 07/18/22 History (Lexapro) ondansetron HCl 4 mg tablet mg 07/18/22 History bupropion HCl 150 mg tablet,12 hr 150 mg PO DAILY 05/16/24 History sustained-release fluoxetine 10 mg capsule mg 05/16/24 History fluoxetine 20 mg capsule mg 05/16/24 History fluoxetine 40 mg capsule mg 05/16/24 History gabapentin 100 mg capsule mg 05/16/24 History Allergies Allergy/AdvReac Type Severity Reaction Status Date / Time No Known Allergies Allergy Verified 05/16/24 18:54 Vital Signs Vital Signs - 24 hr 05/17/24 12:58 05/17/24 15:07 05/17/24 14:58 Temperature Pulse Rate 79 76 75 Respiratory Rate 22 H Blood Pressure Pulse Oximetry 100 100 Oxygen Delivery Mechanical Ventilation Mechanical Ventilation Fraction of Inspired Oxygen 25 25 05/17/24 14:58 05/17/24 14:00 05/17/24 16:00 Temperature Pulse Rate 75 74 74 Respiratory Rate 22 H Blood Pressure 126/82 126/85 Pulse Oximetry Oxygen Delivery Fraction of Inspired Oxygen 05/17/24 14:00 05/17/24 14:45 05/17/24 16:00 Temperature Pulse Rate 82 82 85 Respiratory Rate 22 H 22 H 22 H Blood Pressure Pulse Oximetry Oxygen Delivery Fraction of Inspired Oxygen 05/17/24 14:00 05/17/24 16:05 05/17/24 16:48 Temperature Pulse Rate 74 74 78 Respiratory Rate 22 H 26 H Blood Pressure Pulse Oximetry 100 Oxygen Delivery Mechanical Ventilation Fraction of Inspired Oxygen 25 05/17/24 16:48 05/17/24 14:00 05/17/24 16:00 Temperature 99.5 F 99.6 F Pulse Rate 78 74 73 Respiratory Rate 26 H 22 H 22 H Blood Pressure 126/82 126/85 Pulse Oximetry 100 100 Oxygen Delivery Fraction of Inspired Oxygen 05/17/24 17:23 05/17/24 14:00 05/17/24 18:40 Temperature Pulse Rate 84 74 76 Respiratory Rate 20 22 H Blood Pressure Pulse Oximetry Oxygen Delivery Fraction of Inspired Oxygen 05/17/24 18:00 05/17/24 16:00 05/17/24 16:00 Temperature 100.0 F H Pulse Rate 77 Respiratory Rate 17 Blood Pressure 117/77 Pulse Oximetry 100 Oxygen Delivery Mechanical Ventilation Fraction of Inspired Oxygen 25 25 05/17/24 16:00 05/17/24 18:00 05/17/24 18:00 Temperature Pulse Rate 73 77 77 Respiratory Rate 20 Blood Pressure Pulse Oximetry Oxygen Delivery Fraction of Inspired Oxygen 05/17/24 16:00 05/17/24 18:00 05/17/24 18:41 Temperature Pulse Rate 73 77 76 Respiratory Rate 20 20 22 H Blood Pressure Pulse Oximetry Oxygen Delivery Fraction of Inspired Oxygen 05/17/24 19:39 05/17/24 19:39 05/17/24 19:41 Temperature Pulse Rate 82 82 82 Respiratory Rate 22 H 22 H 22 H Blood Pressure Pulse Oximetry Oxygen Delivery Fraction of Inspired Oxygen 05/17/24 20:00 05/17/24 20:00 05/17/24 20:00 Temperature Pulse Rate 85 84 84 Respiratory Rate 24 H 24 H 24 H Blood Pressure Pulse Oximetry Oxygen Delivery Fraction of Inspired Oxygen 05/17/24 20:00 05/17/24 20:00 05/17/24 20:00 Temperature Pulse Rate 84 84 Respiratory Rate 24 H Blood Pressure Pulse Oximetry 100 Oxygen Delivery Mechanical Ventilation Fraction of Inspired Oxygen 25 25 05/17/24 20:00 05/17/24 21:00 05/17/24 22:00 Temperature 100.1 F H Pulse Rate 82 74 71 Respiratory Rate 24 H Blood Pressure 122/82 Pulse Oximetry 100 98 Oxygen Delivery Mechanical Ventilation Fraction of Inspired Oxygen 25 05/17/24 22:00 05/17/24 22:00 05/17/24 22:00 Temperature 99.2 F Pulse Rate 72 72 72 Respiratory Rate 22 H 22 H 22 H Blood Pressure 109/64 Pulse Oximetry 98 Oxygen Delivery Fraction of Inspired Oxygen 05/17/24 22:00 05/17/24 21:00 05/17/24 23:11 Temperature Pulse Rate 76 81 67 Respiratory Rate 22 H 25 H Blood Pressure Pulse Oximetry 99 Oxygen Delivery Mechanical Ventilation Fraction of Inspired Oxygen 25 05/18/24 00:00 05/18/24 00:00 05/18/24 00:01 Temperature Pulse Rate 64 64 65 Respiratory Rate 22 H 22 H 22 H Blood Pressure Pulse Oximetry Oxygen Delivery Fraction of Inspired Oxygen 05/18/24 00:33 05/18/24 00:33 05/18/24 00:00 Temperature 97.4 F L Pulse Rate 64 64 65 Respiratory Rate 22 H 22 H 22 H Blood Pressure 122/88 Pulse Oximetry 100 Oxygen Delivery Fraction of Inspired Oxygen 05/18/24 00:00 05/18/24 00:00 05/18/24 00:00 Temperature Pulse Rate 65 64 Respiratory Rate 22 H Blood Pressure Pulse Oximetry 100 Oxygen Delivery Mechanical Ventilation Fraction of Inspired Oxygen 25 25 05/18/24 01:00 05/18/24 01:46 05/18/24 02:00 Temperature Pulse Rate 64 64 63 Respiratory Rate 22 H 22 H Blood Pressure Pulse Oximetry 100 Oxygen Delivery Mechanical Ventilation Fraction of Inspired Oxygen 25 05/18/24 02:00 05/18/24 02:00 05/18/24 02:00 Temperature 97.5 F L Pulse Rate 64 66 64 Respiratory Rate 22 H 22 H Blood Pressure 126/96 H Pulse Oximetry 100 Oxygen Delivery Fraction of Inspired Oxygen 05/18/24 02:00 05/18/24 03:21 05/18/24 03:21 Temperature Pulse Rate 64 66 66 Respiratory Rate 22 H 22 H 22 H Blood Pressure Pulse Oximetry Oxygen Delivery Fraction of Inspired Oxygen 05/18/24 04:00 05/18/24 04:00 05/18/24 04:00 Temperature Pulse Rate 60 60 60 Respiratory Rate 22 H 22 H 22 H Blood Pressure Pulse Oximetry Oxygen Delivery Fraction of Inspired Oxygen 05/18/24 04:15 05/18/24 04:00 05/18/24 04:20 Temperature 97.5 F L Pulse Rate 60 62 Respiratory Rate 22 H 22 H Blood Pressure 119/88 Pulse Oximetry 100 100 Oxygen Delivery Mechanical Ventilation Fraction of Inspired Oxygen 25 25 05/18/24 04:30 05/18/24 04:30 05/18/24 04:30 Temperature Pulse Rate 63 63 63 Respiratory Rate 22 H 22 H 22 H Blood Pressure Pulse Oximetry Oxygen Delivery Fraction of Inspired Oxygen 05/18/24 04:00 05/18/24 05:35 05/18/24 06:00 Temperature Pulse Rate 64 67 67 Respiratory Rate Blood Pressure Pulse Oximetry 100 Oxygen Delivery Mechanical Ventilation Fraction of Inspired Oxygen 25 05/18/24 06:00 05/18/24 06:00 05/18/24 05:00 Temperature 98.2 F Pulse Rate 68 67 67 Respiratory Rate 22 H 22 H 22 H Blood Pressure 122/87 Pulse Oximetry 100 Oxygen Delivery Fraction of Inspired Oxygen 05/18/24 06:00 05/18/24 08:00 05/18/24 08:00 Temperature Pulse Rate 68 65 65 Respiratory Rate 22 H 16 16 Blood Pressure Pulse Oximetry Oxygen Delivery Fraction of Inspired Oxygen 05/18/24 08:00 05/18/24 08:09 05/18/24 09:04 Temperature Pulse Rate 65 66 73 Respiratory Rate 16 17 Blood Pressure Pulse Oximetry 100 Oxygen Delivery Mechanical Ventilation Fraction of Inspired Oxygen 25 05/18/24 09:04 05/18/24 08:47 05/18/24 08:58 Temperature Pulse Rate 73 69 71 Respiratory Rate 17 Blood Pressure Pulse Oximetry 100 100 Oxygen Delivery Mechanical Ventilation Mechanical Ventilation Fraction of Inspired Oxygen 25 25 05/18/24 10:35 05/18/24 10:00 05/18/24 11:01 Temperature Pulse Rate 69 69 72 Respiratory Rate 17 18 Blood Pressure Pulse Oximetry 100 Oxygen Delivery Mechanical Ventilation Fraction of Inspired Oxygen 25 Exam Narrative: Patient is on ventilator. Pupils were 5 mm and reacted well to light. Doll's eyes movement present. The tone in both upper and lower limbs were symmetric. No decerebrate or decorticate posturing were noted however time to time he lifts his head and also tries to move his arms which appears to be partial arousal response. Results Labs 05/18/24 05:47 05/18/24 05:47 Labs: Short CBC 05/18/24 Range/Units 05:47 WBC 7.3 (4.5-10.0) K/mm3 Hgb 11.7 L (14.0-18.0) g/dL Hct 34.0 L (42.0-52.0) % Plt Count 173 (150-375) k/mm3 BMP 05/18/24 05:47 Sodium 137 Potassium 3.4 Chloride 107 Carbon Dioxide 24 BUN 6 L Creatinine 0.60 L Glucose 91 Calcium 8.6 Cardiac Enzymes 05/17/24 05/18/24 Range/Units 10:24 05:47 Total Creatine Kinase 90 147 (55-170) U/L Liver Function 05/18/24 Range/Units 05:47 Total Bilirubin 0.5 (0.2-1.3) mg/dL AST 23 (17-59) U/L ALT 15 (6-50) U/L Alkaline Phosphatase 63 (38-126) U/L Albumin 3.3 L (3.5-5.1) g/dL
[2024-05-18 12:35] LABS: Glucose Point of Care 98 mg/dl (65-105)
[2024-05-18] MEDS: FENTANYL 2,500MCG/NS250ML(*CRX 2,500 MCG/250 ML BAG 7.5 MCG IV CONT (12:40)
[2024-05-18] MEDS: MIDAZOLAM HCL (*CRX) 2 MG/2 ML VIAL 4 MG IV PUSH ×2 (14:04→20:39)
[2024-05-18 16:40] LABS: Glucose Point of Care 98 mg/dl (65-105)
[2024-05-18] MEDS: ACETAMINOPHEN ELIXIR 325 MG/10.15 ML UDC 650 MG PO (18:38)
[2024-05-18] MEDS: MIDAZOLAM HCL (*CRX) 2 MG/2 ML VIAL IV PUSH (19:24)
--- NOTE | 2024-05-18 19:42 | PC.NURSE ---
Patient throwing legs off side of bed and trying to remove ETT at this time. Versed maxed out at 15 mg/hr per Dr. Wright. Patient awake and unable to redirect, trying to kick staff and remove life support. Will continue to monitor
[2024-05-18 20:30] LABS: Glucose Point of Care 89 mg/dl (65-105)
--- NOTE | 2024-05-18 20:45 | PC.NURSE ---
Dr. Wright notified of patient's increased combativeness and trying to kick staff. Received an order for 4 mg IVP versed x 1.
--- NOTE | 2024-05-18 20:47 | PC.NURSE ---
Patient's temperature up to 102.1. Patient packed with ice packs at this time. Will continue to monitor.
[2024-05-18] MEDS: MIDAZOLAM 100MG/NS 100ML(*CRX) 100 MG/100 ML BAG 15 MG IV CONT (23:06)
[2024-05-19] VITALS (38 sets, daily range): BP systolic 104–148; BP diastolic 67–96; PULSE 73–94; RESP 13–21; TEMP 36.6–38.4; O2SAT 96–100
[2024-05-19 00:03] LABS: Glucose Point of Care 98 mg/dl (65-105)
[2024-05-19] MEDS: PROPOFOL IV EMULSION 100 ML 20.19 MG IV CONT ×2 (02:54→07:43)
[2024-05-19] MEDS: LACTATED RINGERS 1,000 ML 125 ML IV CONT (02:55)
[2024-05-19 04:40] LABS: Alveolar/Arterial O2 Gradient 60.3 mmHg; Carboxyhemoglobin 0.4 % THb (0-2.0); Fractional Inspired Oxygen 25 %; HCO3 ABG 22.8 mEq/l (22.0-26.0); Methemoglobin ABG 0.2 %THb (0-1.5); Oxygen Content ABG 16.5 %vol (16.0-22.0); Oxygen Saturation ABG 94.3 % (95.0-100.0); Oxyhemoglobin 93.5 % THb (90.0-100.0); PO2 ABG 71.6 mmHg (80.0-100.0); PO2 FiO2 Ratio Arterial Blood 2.86 %; Reduced Hemoglobin 5.9 %THb (0-5.0); Total Hemoglobin 12.5 g/dL (12.0-18.0); pH ABG 7.385 (7.350-7.450)
[2024-05-19 04:41] LABS: Arterial Blood Gas PEEP 5 cmH2O; Arterial Blood Gas Tidal Volume 350 ml; Arterial Blood Gas Vent Mode CMV; Arterial Blood Gas Ventilator rate 16 /MIN; Device VENTILATOR; Modified Allen's Test Pass; Site Drawn RIGHT RADIAL
[2024-05-19 04:45] LABS: Hematocrit 34.8 % (42.0-52.0); Hemoglobin 11.6 g/dL (14.0-18.0); Mean Corpuscular HGB Conc 33.3 g/dl (32-36); Mean Corpuscular Hemoglobin 32.5 pg (26-34); Mean Corpuscular Volume 97.5 fl (80-100); Mean Platelet Volume 9.6 fl (7.4-10.4); Platelet Count Result 160 k/mm3 (150-375); Red Blood Count 3.57 M/mm3 (4.6-6.20); Red Cell Distribution Width 14.5 % (11.5-14.5); White Blood Count 9.8 K/mm3 (4.5-10.0)
[2024-05-19 04:56] LABS: Alanine Aminotransferase 50 U/L (6-50); Albumin Level 3.6 g/dL (3.5-5.1); Alkaline Phosphatase 74 U/L (38-126); Anion Gap 5 mmol/L (4-12); Aspartate Amino Transferase 94 U/L (17-59); Bilirubin,Total 0.5 mg/dL (0.2-1.3); Blood Urea Nitrogen 4 mg/dL (9-20); Calcium 8.7 mg/dL (8.4-10.2); Carbon Dioxide 28 mmol/L (22-30); Chloride 102 mmol/L (98-107); Creatine Kinase 690 U/L (55-170); Estimated CRCL calculation 137 ml/min; Estimated Glomerular Filt Rate > 60; Glucose 113 mg/dL (65-110); Magnesium 1.6 mg/dL (1.6-2.3); Phosphorus 3.8 mg/dL (2.5-4.5); Potassium 4.2 mmol/L (3.4-5.0); Sodium 135 mmol/L (137-145)
[2024-05-19] MEDS: CENTRAL LINE FLUSH 10 ML IV PUSH ×3 (05:10→22:50)
[2024-05-19] MEDS: MIDAZOLAM 100MG/NS 100ML(*CRX) 100 MG/100 ML BAG 14 MG IV CONT (05:29)
[2024-05-19] MEDS: ENOXAPARIN 40 MG/0.4 ML SYRINGE SUB-Q (08:37)
[2024-05-19] MEDS: FOLIC ACID 1 MG/0.2 ML INJ IV PUSH (08:37)
[2024-05-19] MEDS: PANTOPRAZOLE SODIUM IV 40 MG VIAL IV PUSH (08:37)
[2024-05-19] MEDS: MINERAL OIL/WHITE PETROLATUM OINTMENT 1 APPLIC EACH EYE (08:37)
[2024-05-19] MEDS: PIPERACILLN/TAZ 3.375GM/NS50ML 3.375 GM/50 ML BAG IVPB ×4 (08:44→23:50)
[2024-05-19 08:54] LABS: Glucose Point of Care 75 mg/dl (65-105)
[2024-05-19] MEDS: ACETAMINOPHEN ELIXIR 325 MG/10.15 ML UDC 650 MG PO ×2 (09:07→16:26)
--- NOTE | 2024-05-19 09:17 | P.PNINT_ITS ---
Progress Note: A&P Assessment and Plan (1) Acute respiratory failure: Code(s): J96.00 - Acute respiratory failure, unspecified whether with hypoxia or hypercapnia Status: Acute Assessment and Plan: Acute respiratory failure secondary to status epilepticus Now intubated and sedated ABG and chest x-ray reviewed Continue current ventilator setting Will perform sedation holiday and evaluate for weaning trial today (2) Status epilepticus: Code(s): G40.901 - Epilepsy, unspecified, not intractable, with status epilepticus Status: Acute Assessment and Plan: Status epilepticus secondary to gabapentin overdose Patient now intubated and sedated on mechanical ventilation Continue propofol and Versed Neurology following Head CT was negative acute change EEG No significant abnormalities noted in this tracing which mainly comprises of sedated patient without any focal paroxysmal or slow activity consider the possibility of status epilepticus or focal structural lesion clinical correlation recommended. Patient has been accepted at [facility] but is on waiting list for transfer continues EEG monitoring Sedation holiday today and evaluate for extubation (3) Drug overdose: Qualifiers: Encounter type: initial encounter Injury intent: undetermined intent Qualified Code(s): T50.904A - Poisoning by unspecified drugs, medicaments and biological substances, undetermined, initial encounter Code(s): T50.901A - Poisoning by unspecified drugs, medicaments and biological substances, accidental (unintentional), initial encounter Status: Acute Assessment and Plan: Overdose of fluoxetine and gabapentin. Patient was also intoxicated with alcohol. Patient's UDS was also positive for amphetamine and cannabinoids Poison Control notified Now sedated, on mechanical ventilation and on IV fluids (4) Alcohol intoxication: Code(s): F10.929 - Alcohol use, unspecified with intoxication, unspecified Status: Acute Assessment and Plan: Continue IV fluids but decrease rate Thiamine folic acid (5) Polysubstance abuse: Code(s): F19.10 - Other psychoactive substance abuse, uncomplicated Status: Acute Assessment and Plan: Patient has history of polysubstance abuse including methamphetamine, alcohol, opioids. As per patient's grandmother patient has been in rehab multiple times and has been admitted with overdoses in the past. He has tried to commit suicide also in the past. He has history of mood disorder. (6) Suicide attempt: Code(s): T14.91XA - Suicide attempt, initial encounter Status: Acute Assessment and Plan: Patient has history of depression and has history of suicide attempts in the past. He will be evaluated by Psychiatry post extubation once medical issues are resolved (7) Electrolyte abnormality: Code(s): E87.8 - Other disorders of electrolyte and fluid balance, not elsewhere classified Status: Acute Assessment and Plan: Potassium improved after placement. Magnesium replacement ordered. (8) Fever: Code(s): R50.9 - Fever, unspecified Status: Acute Assessment and Plan: New onset fever. WBC normal but increase endotracheal suction secretions Chest x-ray clear Pneumonia versus tracheitis Check procalcitonin, MRSA screen, sputum and blood cultures Start empiric antibiotics Plan DVT prophylaxis -Lovenox Stress ulcer prophylaxis -PPI Nutrition -continue Tube Feeds Code Status - Full Code 05/17 I spoke to [facility] transfer center and no EEG monitoring station was available at [facility]. Patient has been accepted at [facility]. Accepting physician Dr. Hanks. patient is on a waiting list at this time. They will call once the bed. I have discussed this with patient's grandmother and discussed risks and benefits of transferring to tertiary facility for continuous EEG monitoring. She verbalized understanding is agreeable to proceed if bed becomes available. Total Critical Care Time - 35 minutes Due to a high probability of clinically significant, life threatening deterioration, the patient required my highest level of preparedness to intervene emergently and I personally spent this critical care time directly and personally managing the patient. This critical care time included obtaining a history; examining the patient; pulse oximetry; ordering and review of studies; arranging urgent treatment with development of a management plan; evaluation of patient's response to treatment; frequent reassessment; and discussions with other providers. It was exclusive of separately billable procedures and treating other patients and teaching time. Please see Assessment and Plan section and the rest of the note for further information on patient assessment and treatment Subjective Date/time seen: 05/19/24 Overnight events reviewed. febrile overnight Continues to be on mechanical ventilation 25% FiO2 Continues to be sedated with propofol Versed and fentanyl Patient was agitated overnight kicking staff trying to set up and pull on lines and tubes. The sedation had to be increased. Good urine output. Tolerating tube feeds. Increased respiratory secretions. Other Vitals acceptable Review of Systems Review of Systems: ROS unobtainable: Yes unobtainable due to endotracheal tube, unobtainable due to medical condition and unobtainable due to mental status Exam Narrative: General: Pt is sedated, intubated and on mechanical ventilation Lungs/Chest: Trachea central Coarse BS B/L, No crackles or wheezing. Cardiac: RRR. Normal S1 S2. No murmurs Circulation: Pedal pulses are intact and symmetrical. Abdomen: Decreased bowel sounds.. Soft. NT. ND. Extremities: No clubbing, cyanosis or edema. Warm : Espinoza in place Neurologic: Unable to assess due to sedation. Moves all 4 extremities spontaneously tries to open his eyes on stimulation PERRL Objective Data Vital Signs Vital Signs: Vital Signs - 24 hr 05/18/24 10:35 05/18/24 10:00 05/18/24 11:01 Temperature Pulse Rate 69 69 72 Respiratory Rate 17 18 Blood Pressure Pulse Oximetry 100 Oxygen Delivery Mechanical Ventilation Fraction of Inspired Oxygen 25 05/18/24 10:00 05/18/24 12:00 05/18/24 12:00 Temperature Pulse Rate 69 72 72 Respiratory Rate 17 16 16 Blood Pressure Pulse Oximetry Oxygen Delivery Fraction of Inspired Oxygen 05/18/24 10:00 05/18/24 10:39 05/18/24 12:00 Temperature Pulse Rate 72 79 72 Respiratory Rate 16 20 16 Blood Pressure Pulse Oximetry Oxygen Delivery Fraction of Inspired Oxygen 05/18/24 12:40 05/18/24 12:40 05/18/24 12:41 Temperature Pulse Rate 71 71 71 Respiratory Rate 16 16 16 Blood Pressure Pulse Oximetry Oxygen Delivery Fraction of Inspired Oxygen 05/18/24 12:41 05/18/24 13:35 05/18/24 13:45 Temperature Pulse Rate 71 70 71 Respiratory Rate 16 16 Blood Pressure Pulse Oximetry 100 Oxygen Delivery Mechanical Ventilation Fraction of Inspired Oxygen 25 05/18/24 13:45 05/18/24 14:04 05/18/24 14:00 Temperature Pulse Rate 71 89 97 Respiratory Rate 16 22 H 30 H Blood Pressure Pulse Oximetry Oxygen Delivery Fraction of Inspired Oxygen 05/18/24 14:00 05/18/24 12:00 05/18/24 10:00 Temperature Pulse Rate 97 69 Respiratory Rate 30 H Blood Pressure Pulse Oximetry Oxygen Delivery Mechanical Ventilation Fraction of Inspired Oxygen 05/18/24 12:00 05/18/24 12:00 05/18/24 10:00 Temperature 36.6 C Pulse Rate 69 69 Respiratory Rate 17 Blood Pressure 103/68 Pulse Oximetry 99 Oxygen Delivery Fraction of Inspired Oxygen 25 05/18/24 12:00 05/18/24 14:00 05/18/24 14:00 Temperature 36.8 C 37.2 C Pulse Rate 72 97 97 Respiratory Rate 16 31 H Blood Pressure 109/69 108/72 Pulse Oximetry 98 92 Oxygen Delivery Fraction of Inspired Oxygen 05/18/24 14:39 05/18/24 16:00 05/18/24 16:00 Temperature Pulse Rate Respiratory Rate Blood Pressure Pulse Oximetry 94 Oxygen Delivery Mechanical Ventilation Mechanical Ventilation Fraction of Inspired Oxygen 35 35 05/18/24 16:00 05/18/24 16:00 05/18/24 16:00 Temperature 37.4 C Pulse Rate 79 79 79 Respiratory Rate 17 17 17 Blood Pressure 102/61 Pulse Oximetry 100 Oxygen Delivery Fraction of Inspired Oxygen 05/18/24 16:00 05/18/24 16:00 05/18/24 17:05 Temperature Pulse Rate 79 80 82 Respiratory Rate 17 17 Blood Pressure Pulse Oximetry Oxygen Delivery Fraction of Inspired Oxygen 05/18/24 16:47 05/18/24 16:59 05/18/24 18:01 Temperature Pulse Rate 80 82 Respiratory Rate 19 Blood Pressure Pulse Oximetry 100 100 Oxygen Delivery Mechanical Ventilation Mechanical Ventilation Fraction of Inspired Oxygen 35 25 05/18/24 18:01 05/18/24 18:00 05/18/24 18:00 Temperature Pulse Rate 82 83 83 Respiratory Rate 19 19 19 Blood Pressure Pulse Oximetry Oxygen Delivery Fraction of Inspired Oxygen 05/18/24 18:00 05/18/24 18:00 05/18/24 18:38 Temperature 38.1 C H 38.3 C H Pulse Rate 83 83 Respiratory Rate 19 Blood Pressure 112/66 Pulse Oximetry 100 Oxygen Delivery Fraction of Inspired Oxygen 05/18/24 19:26 05/18/24 19:00 05/18/24 19:40 Temperature 38.3 C H Pulse Rate 88 92 89 Respiratory Rate 18 24 H 22 H Blood Pressure 110/71 Pulse Oximetry 100 Oxygen Delivery Mechanical Ventilation Fraction of Inspired Oxygen 05/18/24 19:43 05/18/24 19:38 05/18/24 20:00 Temperature 38.7 C H 38.8 C H 38.9 C H Pulse Rate 98 88 Respiratory Rate 21 H 22 H Blood Pressure 108/70 108/63 Pulse Oximetry 100 98 Oxygen Delivery Fraction of Inspired Oxygen 05/18/24 20:00 05/18/24 20:00 05/18/24 20:00 Temperature Pulse Rate 96 99 Respiratory Rate 24 H 24 H Blood Pressure Pulse Oximetry Oxygen Delivery Fraction of Inspired Oxygen 25 05/18/24 20:15 05/18/24 20:00 05/18/24 20:26 Temperature Pulse Rate 82 82 95 Respiratory Rate 24 H 24 H Blood Pressure Pulse Oximetry 98 98 Oxygen Delivery Mechanical Ventilation Mechanical Ventilation Fraction of Inspired Oxygen 25 25 05/18/24 20:30 05/18/24 20:45 05/18/24 21:00 Temperature Pulse Rate 96 100 88 Respiratory Rate 20 22 H 18 Blood Pressure Pulse Oximetry Oxygen Delivery Fraction of Inspired Oxygen 05/18/24 21:00 05/18/24 20:00 05/18/24 21:19 Temperature 38.7 C H Pulse Rate 87 88 86 Respiratory Rate 16 20 Blood Pressure 102/58 L Pulse Oximetry 96 Oxygen Delivery Fraction of Inspired Oxygen 05/18/24 22:00 05/18/24 22:00 05/18/24 22:00 Temperature 38.1 C H Pulse Rate 84 84 84 Respiratory Rate 17 18 Blood Pressure 112/72 Pulse Oximetry 100 Oxygen Delivery Fraction of Inspired Oxygen 05/18/24 22:00 05/18/24 22:00 05/18/24 22:59 Temperature Pulse Rate 84 84 88 Respiratory Rate 18 18 25 H Blood Pressure Pulse Oximetry Oxygen Delivery Fraction of Inspired Oxygen 05/18/24 23:05 05/18/24 23:06 05/18/24 23:02 Temperature Pulse Rate 88 94 89 Respiratory Rate 25 H 24 H 24 H Blood Pressure Pulse Oximetry Oxygen Delivery Fraction of Inspired Oxygen 05/18/24 23:06 05/18/24 23:21 05/18/24 23:47 Temperature Pulse Rate 88 87 Respiratory Rate 24 H Blood Pressure Pulse Oximetry 98 Oxygen Delivery Mechanical Ventilation Fraction of Inspired Oxygen 25 25 05/18/24 23:50 05/19/24 00:00 05/19/24 00:00 Temperature 38.4 C H Pulse Rate 87 87 87 Respiratory Rate 24 H 16 Blood Pressure 111/68 Pulse Oximetry 98 98 Oxygen Delivery Mechanical Ventilation Fraction of Inspired Oxygen 25 05/19/24 00:00 05/19/24 00:00 05/19/24 00:00 Temperature Pulse Rate 87 87 87 Respiratory Rate 16 16 16 Blood Pressure Pulse Oximetry Oxygen Delivery Fraction of Inspired Oxygen 05/19/24 01:40 05/19/24 02:00 05/19/24 02:00 Temperature 37.8 C H Pulse Rate 83 83 87 Respiratory Rate 16 16 Blood Pressure 118/72 Pulse Oximetry 100 Oxygen Delivery Fraction of Inspired Oxygen 05/19/24 02:00 05/19/24 02:00 05/19/24 02:00 Temperature Pulse Rate 87 87 87 Respiratory Rate 16 16 16 Blood Pressure Pulse Oximetry Oxygen Delivery Fraction of Inspired Oxygen 05/19/24 02:23 05/19/24 02:54 05/19/24 02:54 Temperature Pulse Rate 83 83 82 Respiratory Rate 16 16 Blood Pressure Pulse Oximetry 99 Oxygen Delivery Mechanical Ventilation Fraction of Inspired Oxygen 25 05/19/24 04:00 05/19/24 04:00 05/19/24 04:00 Temperature 37.7 C H Pulse Rate 87 79 Respiratory Rate 17 16 Blood Pressure 111/73 Pulse Oximetry 98 Oxygen Delivery Fraction of Inspired Oxygen 25 05/19/24 04:00 05/19/24 04:00 05/19/24 04:42 Temperature Pulse Rate 78 79 78 Respiratory Rate 16 16 Blood Pressure Pulse Oximetry 99 Oxygen Delivery Mechanical Ventilation Fraction of Inspired Oxygen 25 05/19/24 04:30 05/19/24 05:05 05/19/24 04:00 Temperature Pulse Rate 75 76 76 Respiratory Rate 16 16 16 Blood Pressure Pulse Oximetry 99 Oxygen Delivery Mechanical Ventilation Fraction of Inspired Oxygen 25 05/19/24 04:00 05/19/24 05:29 05/19/24 05:29 Temperature Pulse Rate 76 77 77 Respiratory Rate 16 16 Blood Pressure Pulse Oximetry Oxygen Delivery Fraction of Inspired Oxygen 05/19/24 05:35 05/19/24 06:00 05/19/24 06:00 Temperature 37.7 C H Pulse Rate 76 74 75 Respiratory Rate 16 16 Blood Pressure 104/71 Pulse Oximetry 99 Oxygen Delivery Fraction of Inspired Oxygen 05/19/24 06:25 05/19/24 06:00 05/19/24 06:00 Temperature Pulse Rate 81 76 76 Respiratory Rate 16 16 16 Blood Pressure Pulse Oximetry Oxygen Delivery Fraction of Inspired Oxygen 05/19/24 06:30 05/19/24 07:43 05/19/24 07:43 Temperature Pulse Rate 77 78 78 Respiratory Rate 16 16 16 Blood Pressure Pulse Oximetry Oxygen Delivery Fraction of Inspired Oxygen 05/19/24 07:47 05/19/24 07:47 05/19/24 07:52 Temperature Pulse Rate 78 78 80 Respiratory Rate 16 16 Blood Pressure Pulse Oximetry 99 Oxygen Delivery Mechanical Ventilation Fraction of Inspired Oxygen 05/19/24 08:00 05/19/24 08:12 05/19/24 08:33 Temperature 37.9 C H Pulse Rate 79 80 80 Respiratory Rate 16 18 16 Blood Pressure 112/71 Pulse Oximetry 98 Oxygen Delivery Fraction of Inspired Oxygen 05/19/24 08:54 05/19/24 09:07 05/19/24 09:10 Temperature 38.0 C H Pulse Rate 82 81 Respiratory Rate 18 18 Blood Pressure Pulse Oximetry Oxygen Delivery Fraction of Inspired Oxygen Intake/Output Intake/Output: Intake & Output 05/16/24 05/17/24 05/18/24 05/19/24 23:59 23:59 23:59 23:59 Intake Total 1000 4611.3 4470.4 2638.6 Output Total 2300 2600 2525 Balance 1000 2311.3 1870.4 113.6 Meds/Results Medications: Active Medications Generic Name Dose Route Start Last Admin Trade Name Freq PRN Reason Stop Dose Admin Acetaminophen 650 mg 05/17/24 21:12 05/19/24 09:07 Acetaminophen Elixir 325 Mg/10.15 Ml Udc PO 650 mg Q4H PRN Administration Mild Pain (1-3) or Fever Dextrose 12.5 gm 05/17/24 08:12 Dextrose 50% 25 Gm/50 Ml Syringe IV PUSH PRN PRN Hypoglycemia Protocol Enoxaparin Sodium 40 mg 05/17/24 09:00 05/19/24 08:37 Enoxaparin 40 Mg/0.4 Ml Syringe SUB-Q 40 mg DAILY ROBERT Administration Folic Acid 1 mg 05/17/24 09:00 05/19/24 08:37 Folic Acid 1 Mg/0.2 Ml Inj IV PUSH 1 mg QAM ROBERT Administration Glucagon 1 mg 05/17/24 08:12 Glucagon For Inj 1 Mg Vial IM PRN PRN Hypoglycemia Protocol Glucose 15 gm 05/17/24 08:12 Glucose Oral Gel 15 Gm Of Glucse In 37.5 Gm Tube PO PRN PRN Hypoglycemia Protocol Lactated Ringer's 1,000 mls @ 75 mls/hr 05/16/24 20:30 05/19/24 08:12 Lr - Lactated Ringers Iv IV CONT 75 mls/hr .[id number] ROBERT Infusion Propofol 100 mls @ 20.19 mls/hr 05/17/24 00:40 05/19/24 07:43 Diprivan IV CONT 50 mcg/kg/min .Q4H58M ROBERT 20.19 mls/hr Administration Protocol 50 MCG/KG/MIN Midazolam HCl 100 mg in 100 mls @ 0 mls/hr 05/17/24 01:50 05/19/24 09:10 Versed 100 Mg/Ns 100 Ml IV CONT 0 mg/hr .Q0M ROBERT 0 mls/hr Titration Protocol Dextrose 1,000 mls @ 100 mls/hr 05/17/24 08:12 Dextrose 5% 1,000 Ml IVPB PRN PRN Hypoglycemia Protocol Fentanyl Citrate 2,500 mcg in 250 mls @ 0 mls/hr 05/17/24 17:45 05/19/24 08:12 Fentanyl 2,500 Mcg/Ns 250 Ml IV CONT 0 mcg/hr .Q0M ROBERT 0 mls/hr Titration Protocol Piperacillin/Tazobactam/Dextrose 3.375 gm in 50 mls @ 100 mls/hr 05/19/24 08:30 05/19/24 08:44 Zosyn 3.375 Gm/Ns 50 Ml IVPB 100 mls/hr Q6HR ROBERT Administration Insulin Aspart 2 - 5 units 05/17/24 09:00 05/19/24 08:37 Insulin Aspart (*Bkc) 100 Units/Ml SUB-Q Not Given Q4HR ROBERT Protocol Multi-Ingred Cream/Lotion/Oil/Oint 1 applic 05/17/24 09:00 05/19/24 08:37 Mineral Oil/White Petrolatum Ointment EACH EYE 1 applic Q12HR ROBERT Administration Pantoprazole Sodium 40 mg 05/17/24 09:00 05/19/24 08:37 Pantoprazole Sodium Iv 40 Mg Vial IV PUSH 40 mg QAM ROBERT Administration Sodium Chloride 10 ml 05/17/24 14:00 05/19/24 05:10 Central Line Flush IV PUSH 10 ml Q8HR ROBERT Administration Sodium Chloride 20 ml 05/17/24 06:07 Central Line Flush IV PUSH PRN PRN after blood draws Radiology Results: ITS Impressions Abdomen X-Ray 05/17/24 05:47 Impression: NG tube in satisfactory position. Head CT 05/17/24 15:14 IMPRESSION: No acute intracranial findings. Chest X-Ray 05/19/24 06:31 Impression: Clear lungs. Support tubes, as above. Labs Labs: Laboratory Results - last 24 hr 05/18/24 05/18/24 05/18/24 12:33 16:39 20:18 WBC RBC Hgb Hct MCV MCH MCHC RDW Plt Count MPV Puncture Site ABG pH ABG pCO2 ABG pO2 ABG PO2/FiO2 Ratio ABG HCO3 ABG O2 Saturation ABG O2 Content ABG Base Excess A-a Gradient Oxyhemoglobin Carboxyhemoglobin Methemoglobin Reduced Hemoglobin Total Hemoglobin O2 Delivery Device O2 Liters/Min Minute Volume Vent Rate Vent Mode FiO2 Tidal Volume PEEP Peak Inspir Pressure Pressure Support Sodium Potassium Chloride Carbon Dioxide Anion Gap BUN Creatinine Estim Creat Clear Calc Estimated GFR Glucose POC Capillary Glucose 98 98 89 Calcium Phosphorus Magnesium Total Bilirubin AST ALT Alkaline Phosphatase Total Creatine Kinase Total Protein Albumin 05/18/24 05/19/24 05/19/24 23:58 04:32 04:40 WBC 9.8 RBC 3.57 L Hgb 11.6 L Hct 34.8 L MCV 97.5 MCH 32.5 MCHC 33.3 RDW 14.5 Plt Count 160 MPV 9.6 Puncture Site Right radial ABG pH 7.385 ABG pCO2 39.0 ABG pO2 71.6 L ABG PO2/FiO2 Ratio 2.86 ABG HCO3 22.8 ABG O2 Saturation 94.3 L ABG O2 Content 16.5 ABG Base Excess -2.0 A-a Gradient 60.3 Oxyhemoglobin 93.5 Carboxyhemoglobin 0.4 Methemoglobin 0.2 Reduced Hemoglobin 5.9 H Total Hemoglobin 12.5 O2 Delivery Device Ventilator O2 Liters/Min Not Reportable Minute Volume Not Reportable Vent Rate 16 Vent Mode Cmv FiO2 25 Tidal Volume 350 PEEP 5 Peak Inspir Pressure Not Reportable Pressure Support Not Reportable Sodium 135 L Potassium 4.2 Chloride 102 Carbon Dioxide 28 Anion Gap 5 BUN 4 L Creatinine 0.70 Estim Creat Clear Calc 137 Estimated GFR > 60 Glucose 113 H POC Capillary Glucose 98 Calcium 8.7 Phosphorus 3.8 Magnesium 1.6 Total Bilirubin 0.5 AST 94 H ALT 50 Alkaline Phosphatase 74 Total Creatine Kinase 690 H Total Protein 6.0 L Albumin 3.6 05/19/24 08:35 WBC RBC Hgb Hct MCV MCH MCHC RDW Plt Count MPV Puncture Site ABG pH ABG pCO2 ABG pO2 ABG PO2/FiO2 Ratio ABG HCO3 ABG O2 Saturation ABG O2 Content ABG Base Excess A-a Gradient Oxyhemoglobin Carboxyhemoglobin Methemoglobin Reduced Hemoglobin Total Hemoglobin O2 Delivery Device O2 Liters/Min Minute Volume Vent Rate Vent Mode FiO2 Tidal Volume PEEP Peak Inspir Pressure Pressure Support Sodium Potassium Chloride Carbon Dioxide Anion Gap BUN Creatinine Estim Creat Clear Calc Estimated GFR Glucose POC Capillary Glucose 75 Calcium Phosphorus Magnesium Total Bilirubin AST ALT Alkaline Phosphatase Total Creatine Kinase Total Protein Albumin
[2024-05-19 09:19] LABS: Procalcitonin 0.1 ng/mL
--- NOTE | 2024-05-19 10:08 | PCNFU ---
Nutrition Follow-Up Complete: Inadequate energy intake related to NPO status as evidenced by mechanical ventilation Meet estimated needs - Meeting needs with tube feeding ~90% EER, 88% estimated protein needs Goal: Pt current nutrition is ON HOLD for possible extubation. Nutrition recommendation: Resume tube feeding if patient remains intubated; if extubated, PO diet as able Last recorded weight is 67.6 kg. Bowel Motility: No BMs charted Labs Reviewed: Hgb 11.6, Hct 34.8, Na 135, BUN 4, Glu 113 Meds Noted: Novolog, lovenox, protoniz, zosyn. Sedation with propofol: 20.19 ml/h=533 kcal. Skin: No skin issues Additional Notes: Sedation with propofol only for breathing trial. Hopefully extubated today. on transfer list to [facility] Monitor intubation status, diet orders, labs, wt. Follow daily in ICU rounds, follow up in 3 days.
[2024-05-19 11:07] LABS: MRSA (PCR) NOT DETECTED (NOT DETECTE)
[2024-05-19] MEDS: LACTATED RINGERS 1,000 ML 75 ML IV CONT (12:47)
[2024-05-19] MEDS: oxyCODONE/ACETAMINOPHEN (*CRX) 5-325 MG TABLET 1 TABLET PO ×2 (18:36→23:49)
[2024-05-19] MEDS: oxyCODONE HCL (*CRX) 5 MG TAB IR PO (22:14)
[2024-05-19] MEDS: LORazepam (*CRX) 1 MG TABLET PO (22:14)
[2024-05-20] VITALS (27 sets, daily range): BP systolic 111–142; BP diastolic 70–93; PULSE 7–108; RESP 12–30; TEMP 36.8–37.2; O2SAT 96–100
--- NOTE | 2024-05-20 02:31 | PC.NURSE ---
Addendum entered by Isac Sheppard RN 05/20/24 02:48: Dr. Wright notified of increased anxiety, diaphoresis, hypertension, and agitation around 2300. Patient not due for another oxycodone until 0030. RN received orders to administer 1 mg PO Ativan and 5 mg immediate-release oxycodone. Medications obtained and administered as ordered. Will continue to monitor. Original Note: At 0150 patient requested to food safety auditor that he speak to RN for another percocet. Director Of Community Services told patient that this RN was in another room at the moment with another patient and that he would be in as soon as possible. Patient proceeded to tell food safety auditor I don't care about the other patients, I need my f*ckin percocet now! Security called to stand outside of room as patient has history of violence in the past. RN went into room to talk to patient and noted that patient's pupils were extremely dilated. Patient was requesting a stronger dose of percocet. Patient threatening this RN that If I don't get 100 mg of percocet, I'm gonna f*cking kick your ass. You think you guys are f*ckin tough keeping drugs from me? I'm just gonna get some fentanyl as soon as I f*ckin leave this place. This RN explained to patient that he could only be given what was prescribed to him by the doctor and that RN could not put patient to sleep as requested. Patient continues to express that he feels the staff is trying to kill him. Charge nurse Yennifer at bedside and reiterated with patient that RN can only administer what is prescribed to the patient. Patient became belligerent and stated, You're just a fat slut. I'd rather be a skinny drug addict than a fat slut any day. RN redirected patient as to why he was here. Patient convinced that he is having an operation tomorrow and that nursing staff is trying to kill him. This RN explained to patient that he would be back into room when patient was due for more percocet around 0400. Patient continues to request higher doses to help me sleep. RN explained to patient that it was not his job to help him sleep but to keep him safe. Patient Director Of Community Services moved to outside of patient room for her safety. Security outside of room monitoring for staff safety at this time. Will continue to monitor.
[2024-05-20] MEDS: LACTATED RINGERS 1,000 ML 75 ML IV CONT (03:30)
--- NOTE | 2024-05-20 03:49 | PC.NURSE ---
Security called to room. Patient agitated You're all out there playing porn and fucking each other.
[2024-05-20] MEDS: LORazepam INJ (*CRX) 2 MG/ML VIAL IV PUSH ×2 (03:51→04:32)
--- NOTE | 2024-05-20 03:54 | PC.NURSE ---
Patient witnessed RN preparing Ativan 2mg IVP you have no balls when inquired concerning the comment I thought he was shooting up. Ensured patient the nursing staff is not shooting up. Are you going to get the police here? further inquiry the patient expressed disbelief being in the hospital. Just give me the GHB! Security at bedside
[2024-05-20] MEDS: dexmedeTOMIDine 400 MCG/100 ML 400 MCG/100 ML BAG IV CONT (04:04)
--- NOTE | 2024-05-20 04:34 | PC.NURSE ---
Security at bedside. Patient threatening This is going down now! I'm getting the f*ck out of here now! Patient ripped off restraints and received additional dose of IVP ativan. Precedex drip increased per MD order as patient is being extremely combative with staff. Patient continues to hallucinate that staff is trying to drug him with meth, rape him, and give him water with semen in it. New soft restraint applied to left arm. Will continue to monitor.
--- NOTE | 2024-05-20 04:55 | PC.NURSE ---
Update given to Jessica at [facility] Transfer Center on patient's current condition.
[2024-05-20] MEDS: CENTRAL LINE FLUSH 10 ML IV PUSH ×3 (05:03→22:19)
[2024-05-20] MEDS: PIPERACILLN/TAZ 3.375GM/NS50ML 3.375 GM/50 ML BAG IVPB ×2 (05:03→12:40)
[2024-05-20 05:05] LABS: Hemoglobin 12.9 g/dL (14.0-18.0); Mean Corpuscular HGB Conc 33.9 g/dl (32-36); Mean Corpuscular Hemoglobin 32.3 pg (26-34); Mean Corpuscular Volume 95.2 fl (80-100); Mean Platelet Volume 9.5 fl (7.4-10.4); Platelet Count Result 199 k/mm3 (150-375); Red Blood Count 3.99 M/mm3 (4.6-6.20); Red Cell Distribution Width 13.7 % (11.5-14.5); White Blood Count 9.7 K/mm3 (4.5-10.0)
[2024-05-20 05:33] LABS: Alanine Aminotransferase 86 U/L (6-50); Albumin Level 4.1 g/dL (3.5-5.1); Alkaline Phosphatase 86 U/L (38-126); Anion Gap 7 mmol/L (4-12); Aspartate Amino Transferase 175 U/L (17-59); Bilirubin,Total 0.8 mg/dL (0.2-1.3); Blood Urea Nitrogen 5 mg/dL (9-20); Calcium 9.2 mg/dL (8.4-10.2); Carbon Dioxide 27 mmol/L (22-30); Chloride 102 mmol/L (98-107); Estimated CRCL calculation 158 ml/min; Estimated Glomerular Filt Rate > 60; Glucose 120 mg/dL (65-110); Magnesium 1.7 mg/dL (1.6-2.3); Phosphorus 3.4 mg/dL (2.5-4.5); Potassium 4.2 mmol/L (3.4-5.0); Sodium 136 mmol/L (137-145); Triglycerides 83 mg/dL (<150)
[2024-05-20 06:35] LABS: Creatine Kinase 4030 U/L (55-170)
--- NOTE | 2024-05-20 07:41 | WPDINTPN ---
Progress Note: A&P Assessment and Plan (1) Acute respiratory failure: Code(s): J96.00 - Acute respiratory failure, unspecified whether with hypoxia or hypercapnia Status: Acute Assessment and Plan: Acute respiratory failure secondary to status epilepticus Patient was intubated and sedated 05/19 extubated Now on room air Monitor (2) Status epilepticus: Code(s): G40.901 - Epilepsy, unspecified, not intractable, with status epilepticus Status: Acute Assessment and Plan: Status epilepticus secondary to gabapentin overdose Patient now intubated and sedated on mechanical ventilation Continue propofol and Versed Neurology following Head CT was negative acute change EEG No significant abnormalities noted in this tracing which mainly comprises of sedated patient without any focal paroxysmal or slow activity consider the possibility of status epilepticus or focal structural lesion clinical correlation recommended. Patient has been accepted at [facility] but is on waiting list for transfer continues EEG monitoring 05/19 patient was taken off of sedation and extubated. He has not had any recurrence of seizures since then. (3) Drug overdose: Qualifiers: Encounter type: initial encounter Injury intent: undetermined intent Qualified Code(s): T50.904A - Poisoning by unspecified drugs, medicaments and biological substances, undetermined, initial encounter Code(s): T50.901A - Poisoning by unspecified drugs, medicaments and biological substances, accidental (unintentional), initial encounter Status: Acute Assessment and Plan: Overdose of fluoxetine and gabapentin. Patient was also intoxicated with alcohol. Patient's UDS was also positive for amphetamine and cannabinoids Poison Control was notified and management was coordinated with poison control.e (4) Alcohol intoxication: Code(s): F10.929 - Alcohol use, unspecified with intoxication, unspecified Status: Acute Assessment and Plan: Continue IV fluids but decrease rate Thiamine folic acid (5) Polysubstance abuse: Code(s): F19.10 - Other psychoactive substance abuse, uncomplicated Status: Acute Assessment and Plan: Patient has history of polysubstance abuse including methamphetamine, alcohol, opioids. As per patient's grandmother patient has been in rehab multiple times and has been admitted with overdoses in the past. He has tried to commit suicide also in the past. He has history of mood disorder. Post extubation patient has been complaining of the he is withdrawing from the opioids and requesting opioids. Patient does not have any physical signs or symptoms suggestive of opioid. Patient was started on low-dose oxycodone. Overnight patient was belligerent combative agitated and violent. Security had to be called. Patient was given 3 dose of Ativan. And also started on Precedex infusion. Will wean off Precedex this morning and evaluate patient for the day. Although patient has been on psychiatric medications the past, there is no information or evidence that the patient was taking any psychiatric medications at this time prior to admission hence I have not started him on any medications. (6) Suicide attempt: Code(s): T14.91XA - Suicide attempt, initial encounter Status: Acute Assessment and Plan: Patient has history of depression and has history of suicide attempts in the past. He will be evaluated by Psychiatry post extubation once medical issues are resolved (7) Electrolyte abnormality: Code(s): E87.8 - Other disorders of electrolyte and fluid balance, not elsewhere classified Status: Acute Assessment and Plan: Potassium improved after placement. Magnesium replacement ordered. (8) Fever: Code(s): R50.9 - Fever, unspecified Status: Acute Assessment and Plan: 05/19 New onset fever. WBC normal but increase endotracheal suction secretions Chest x-ray clear Pneumonia versus tracheitis Low procalcitonin, negative MRSA screen, sputum and blood cultures ordered and pending Continue empiric Zosyn (9) Rhabdomyolysis: Code(s): M62.82 - Rhabdomyolysis Status: Acute Assessment and Plan: Creasing CK level likely secondary to agitation Continue IV fluids Plan DVT prophylaxis -Lovenox Stress ulcer prophylaxis -PPI Nutrition -diet ordered Code Status - Full Code 05/17 I spoke to [facility] transfer center and no EEG monitoring station was available at [facility]. Patient has been accepted at [facility]. Accepting physician Dr. Hanks. patient is on a waiting list at this time. They will call once the bed. I have discussed this with patient's grandmother and discussed risks and benefits of transferring to tertiary facility for continuous EEG monitoring. She verbalized understanding is agreeable to proceed if bed becomes available. Total Critical Care Time - 32 minutes Due to a high probability of clinically significant, life threatening deterioration, the patient required my highest level of preparedness to intervene emergently and I personally spent this critical care time directly and personally managing the patient. This critical care time included obtaining a history; examining the patient; pulse oximetry; ordering and review of studies; arranging urgent treatment with development of a management plan; evaluation of patient's response to treatment; frequent reassessment; and discussions with other providers. It was exclusive of separately billable procedures and treating other patients and teaching time. Please see Assessment and Plan section and the rest of the note for further information on patient assessment and treatment Subjective Date/time seen: 05/20/24 Patient was extubated yesterday after weaning trial. Patient did well respiratory standpoint and is on room air. In the evening patient was agitated hallucinating and combative with staff. Post extubation patient continued to request opioids stating that he is going into withdrawal. Patient was started on low-dose oxycodone for nonspecific pain that he was complaining. Later at night patient was agitated and had to be given multiple dose of Ativan and was later started on Precedex infusion. Otherwise his urine has been okay and his vital signs have been stable. He is afebrile. This morning he is on Precedex and states that he feels fine. He is requesting food. Denies any other complaints. All other systems were reviewed and were negative. Review of Systems Review of Systems: All systems reviewed & are unremarkable except as noted in HPI and below (Subjective) Exam Narrative: General: Pt is alert awake and in NAD Lungs/Chest: Trachea central Clear BS B/L, No crackles or wheezing. Cardiac: RRR. Normal S1 S2. No murmurs Circulation: Pedal pulses are intact and symmetrical. Abdomen: Normal bowel sounds.. Soft. NT. ND. Extremities: No clubbing, cyanosis or edema. Warm, soft physically restrained : Espinoza in place Neurologic: Follows commands. Moves all 4 extremities PERRL AO x3 Skin: No Rash Objective Data Vital Signs Vital Signs: Vital Signs - 24 hr 05/19/24 07:43 05/19/24 07:43 05/19/24 07:47 Temperature Pulse Rate 78 78 78 Respiratory Rate 16 16 16 Blood Pressure Pulse Oximetry Oxygen Delivery Fraction of Inspired Oxygen 05/19/24 07:47 05/19/24 07:52 05/19/24 08:00 Temperature 37.9 C H Pulse Rate 78 80 79 Respiratory Rate 16 16 Blood Pressure 112/71 Pulse Oximetry 99 98 Oxygen Delivery Mechanical Ventilation Fraction of Inspired Oxygen 25 05/19/24 08:12 05/19/24 08:33 05/19/24 08:54 Temperature Pulse Rate 80 80 82 Respiratory Rate 18 16 18 Blood Pressure Pulse Oximetry Oxygen Delivery Fraction of Inspired Oxygen 05/19/24 09:07 05/19/24 09:10 05/19/24 08:00 Temperature 38.0 C H Pulse Rate 81 Respiratory Rate 18 Blood Pressure Pulse Oximetry 98 Oxygen Delivery Mechanical Ventilation Fraction of Inspired Oxygen 25 05/19/24 08:00 05/19/24 08:00 05/19/24 10:10 Temperature Pulse Rate 80 90 Respiratory Rate 18 Blood Pressure Pulse Oximetry Oxygen Delivery Fraction of Inspired Oxygen 25 05/19/24 10:00 05/19/24 10:00 05/19/24 10:22 Temperature 38.1 C H Pulse Rate 90 90 94 Respiratory Rate 20 20 Blood Pressure 113/73 Pulse Oximetry 99 Oxygen Delivery Fraction of Inspired Oxygen 05/19/24 10:23 05/19/24 10:23 05/19/24 10:07 Temperature 38.3 C H Pulse Rate 92 Respiratory Rate 13 Blood Pressure Pulse Oximetry 98 Oxygen Delivery Room Air Room Air Fraction of Inspired Oxygen 05/19/24 12:00 05/19/24 12:00 05/19/24 12:00 Temperature 38.1 C H Pulse Rate 94 94 Respiratory Rate 16 Blood Pressure 122/67 Pulse Oximetry 97 96 Oxygen Delivery Room Air Fraction of Inspired Oxygen 05/19/24 14:12 05/19/24 14:00 05/19/24 14:00 Temperature 36.7 C Pulse Rate 85 89 89 Respiratory Rate 20 18 Blood Pressure 127/81 Pulse Oximetry 97 99 Oxygen Delivery Room Air Fraction of Inspired Oxygen 05/19/24 16:00 05/19/24 16:00 05/19/24 16:00 Temperature 36.8 C Pulse Rate 81 90 Respiratory Rate 18 Blood Pressure 132/80 Pulse Oximetry 99 97 Oxygen Delivery Room Air Fraction of Inspired Oxygen 05/19/24 18:00 05/19/24 18:00 05/19/24 20:00 Temperature 36.8 C Pulse Rate 83 83 76 Respiratory Rate 14 16 Blood Pressure 147/96 H 136/83 Pulse Oximetry 97 98 Oxygen Delivery Fraction of Inspired Oxygen 05/19/24 19:55 05/19/24 20:00 05/19/24 22:00 Temperature Pulse Rate 76 73 91 Respiratory Rate 16 Blood Pressure Pulse Oximetry 98 Oxygen Delivery Room Air Fraction of Inspired Oxygen 05/19/24 22:00 05/19/24 23:53 05/19/24 23:55 Temperature 36.6 C Pulse Rate 91 76 87 Respiratory Rate 18 21 H 14 Blood Pressure 148/95 H 135/90 Pulse Oximetry 99 96 98 Oxygen Delivery Room Air Fraction of Inspired Oxygen 05/20/24 00:00 05/20/24 02:00 05/20/24 02:00 Temperature Pulse Rate 90 90 90 Respiratory Rate 15 Blood Pressure 142/80 H Pulse Oximetry 98 Oxygen Delivery Fraction of Inspired Oxygen 05/20/24 04:04 05/20/24 03:46 05/20/24 04:01 Temperature Pulse Rate 107 H 108 H 100 Respiratory Rate 20 30 H 28 H Blood Pressure 135/78 Pulse Oximetry Oxygen Delivery Fraction of Inspired Oxygen 05/20/24 04:16 05/20/24 04:00 05/20/24 04:00 Temperature Pulse Rate 99 108 H 99 Respiratory Rate 12 30 H 12 Blood Pressure 136/81 135/78 Pulse Oximetry 100 100 Oxygen Delivery Room Air Fraction of Inspired Oxygen 05/20/24 04:32 05/20/24 04:31 05/20/24 04:46 Temperature Pulse Rate 91 90 81 Respiratory Rate 24 H 13 25 H Blood Pressure 140/80 136/93 H Pulse Oximetry Oxygen Delivery Fraction of Inspired Oxygen 05/20/24 04:56 05/20/24 04:00 05/20/24 05:49 Temperature Pulse Rate 81 102 H 99 Respiratory Rate 24 H 20 Blood Pressure Pulse Oximetry Oxygen Delivery Fraction of Inspired Oxygen 05/20/24 05:46 05/20/24 06:00 05/20/24 06:00 Temperature Pulse Rate 99 75 78 Respiratory Rate 24 H 24 H Blood Pressure 127/89 131/83 Pulse Oximetry 97 96 Oxygen Delivery Fraction of Inspired Oxygen 05/20/24 06:23 05/20/24 06:46 Temperature Pulse Rate 72 74 Respiratory Rate 16 22 H Blood Pressure 124/77 Pulse Oximetry 97 Oxygen Delivery Fraction of Inspired Oxygen Intake/Output Intake/Output: Intake & Output 05/17/24 05/18/24 05/19/24 05/20/24 23:59 23:59 23:59 23:59 Intake Total 4611.3 4470.4 3679.7 890.8 Output Total 2300 2600 7725 Balance 2311.3 1870.4 -4045.3 890.8 Meds/Results Medications: Active Medications Generic Name Dose Route Start Last Admin Trade Name Freq PRN Reason Stop Dose Admin Acetaminophen 650 mg 05/17/24 21:12 05/19/24 16:26 Acetaminophen Elixir 325 Mg/10.15 Ml Udc PO 650 mg Q4H PRN Administration Mild Pain (1-3) or Fever Dextrose 12.5 gm 05/17/24 08:12 Dextrose 50% 25 Gm/50 Ml Syringe IV PUSH PRN PRN Hypoglycemia Protocol Enoxaparin Sodium 40 mg 05/17/24 09:00 05/19/24 08:37 Enoxaparin 40 Mg/0.4 Ml Syringe SUB-Q 40 mg DAILY ROBERT Administration Folic Acid 1 mg 05/17/24 09:00 05/19/24 08:37 Folic Acid 1 Mg/0.2 Ml Inj IV PUSH 1 mg QAM ROBERT Administration Glucagon 1 mg 05/17/24 08:12 Glucagon For Inj 1 Mg Vial IM PRN PRN Hypoglycemia Protocol Glucose 15 gm 05/17/24 08:12 Glucose Oral Gel 15 Gm Of Glucse In 37.5 Gm Tube PO PRN PRN Hypoglycemia Protocol Lactated Ringer's 1,000 mls @ 75 mls/hr 05/16/24 20:30 05/20/24 03:30 Lr - Lactated Ringers Iv IV CONT 75 mls/hr .[id number] ROBERT Administration Dextrose 1,000 mls @ 100 mls/hr 05/17/24 08:12 Dextrose 5% 1,000 Ml IVPB PRN PRN Hypoglycemia Protocol Piperacillin/Tazobactam/Dextrose 3.375 gm in 50 mls @ 100 mls/hr 05/19/24 08:30 05/20/24 05:33 Zosyn 3.375 Gm/Ns 50 Ml IVPB Infused Q6HR ROBERT Infusion Dexmedetomidine HCl 400 mcg in 100 mls @ 10.14 mls/hr 05/20/24 03:50 05/20/24 06:23 Precedex 400 Mcg/100 Ml IV CONT 0.6 mcg/kg/hr .[id number] ROBERT 10.14 mls/hr Titration Protocol 0.6 MCG/KG/HR Multi-Ingred Cream/Lotion/Oil/Oint 1 applic 05/20/24 09:00 Mineral Oil/White Petrolatum Ointment EACH EYE Q12HR ROBERT Oxycodone/Acetaminophen 1 tablet 05/19/24 18:18 05/19/24 23:49 Oxycodone/Acetaminophen (*Crx) 5-325 Mg Tablet PO 1 tablet Q4H PRN Administration Pain Rated 7-10 Pantoprazole Sodium 40 mg 05/17/24 09:00 05/19/24 08:37 Pantoprazole Sodium Iv 40 Mg Vial IV PUSH 40 mg QAM ROBERT Administration Sodium Chloride 10 ml 05/17/24 14:00 05/20/24 05:03 Central Line Flush IV PUSH 10 ml Q8HR ROBERT Administration Sodium Chloride 20 ml 05/17/24 06:07 Central Line Flush IV PUSH PRN PRN after blood draws Radiology Results: ITS Impressions Abdomen X-Ray 05/17/24 05:47 Impression: NG tube in satisfactory position. Head CT 05/17/24 15:14 IMPRESSION: No acute intracranial findings. Chest X-Ray 05/19/24 06:31 Impression: Clear lungs. Support tubes, as above. Labs Labs: Laboratory Results - last 24 hr 05/19/24 05/19/24 05/19/24 04:38 08:35 09:36 WBC RBC Hgb Hct MCV MCH MCHC RDW Plt Count MPV Sodium Potassium Chloride Carbon Dioxide Anion Gap BUN Creatinine Estim Creat Clear Calc Estimated GFR Glucose POC Capillary Glucose 75 Calcium Phosphorus Magnesium Total Bilirubin AST ALT Alkaline Phosphatase Total Creatine Kinase Total Protein Albumin Triglycerides Procalcitonin 0.1 Nasal MRSA (PCR) Not detected 05/20/24 05:00 WBC 9.7 RBC 3.99 L Hgb 12.9 L Hct 38.0 L MCV 95.2 MCH 32.3 MCHC 33.9 RDW 13.7 Plt Count 199 MPV 9.5 Sodium 136 L Potassium 4.2 Chloride 102 Carbon Dioxide 27 Anion Gap 7 BUN 5 L Creatinine 0.60 L Estim Creat Clear Calc 158 Estimated GFR > 60 Glucose 120 H POC Capillary Glucose Calcium 9.2 Phosphorus 3.4 Magnesium 1.7 Total Bilirubin 0.8 AST 175 H ALT 86 H Alkaline Phosphatase 86 Total Creatine Kinase 4030 H Total Protein 7.0 Albumin 4.1 Triglycerides 83 Procalcitonin Nasal MRSA (PCR)
--- NOTE | 2024-05-20 10:58 | PC.NURSE ---
Patient continues to refuse all morning medications. Discussed with patient risk vs benefit of medication and risk of not taking prescribed medication as advised by physician. Patient continues to refuse and states he wants his mom and grandpa up here first before he will take anything . Patient requesting family at bedside. RN called both mom (on contact list), and Grandpa (on contact list) as requested by patient. Family states they will be up shortly. Patient made aware. MD Dr. Wright made aware of patient refusal of medications this morning. RN to continue to monitor patient.
[2024-05-20] MEDS: ENOXAPARIN 40 MG/0.4 ML SYRINGE SUB-Q (12:39)
[2024-05-20] MEDS: PANTOPRAZOLE SODIUM IV 40 MG VIAL IV PUSH (12:39)
[2024-05-20] MEDS: MAGNESIUM SULF 2 GM/WATER 50ML 2 GM/50 ML BAG IVPB (12:40)
[2024-05-20] MEDS: FOLIC ACID 1 MG/0.2 ML INJ IV PUSH (12:40)
[2024-05-20] MEDS: ALPRAZolam (*CRX) 0.5 MG TABLET 1 MG PO ×2 (13:52→21:46)
[2024-05-20] MEDS: LACTATED RINGERS 1,000 ML 125 ML IV CONT ×2 (13:52→21:47)
--- NOTE | 2024-05-20 14:59 | PM.IMPN ---
Progress Note: A&P Assessment and Plan (1) Acute respiratory failure: Code(s): J96.00 - Acute respiratory failure, unspecified whether with hypoxia or hypercapnia Status: Acute Assessment and Plan: Acute respiratory failure secondary to status epilepticus Patient was intubated and sedated 05/19 extubated Now on room air Monitor (2) Status epilepticus: Code(s): G40.901 - Epilepsy, unspecified, not intractable, with status epilepticus Status: Acute Assessment and Plan: Status epilepticus secondary to gabapentin overdose Patient now intubated and sedated on mechanical ventilation Continue propofol and Versed Neurology following Head CT was negative acute change EEG No significant abnormalities noted in this tracing which mainly comprises of sedated patient without any focal paroxysmal or slow activity consider the possibility of status epilepticus or focal structural lesion clinical correlation recommended. Patient has been accepted at [facility] but is on waiting list for transfer continues EEG monitoring 05/19 patient was taken off of sedation and extubated. He has not had any recurrence of seizures since then. (3) Drug overdose: Qualifiers: Encounter type: initial encounter Injury intent: undetermined intent Qualified Code(s): T50.904A - Poisoning by unspecified drugs, medicaments and biological substances, undetermined, initial encounter Code(s): T50.901A - Poisoning by unspecified drugs, medicaments and biological substances, accidental (unintentional), initial encounter Status: Acute Assessment and Plan: Overdose of fluoxetine and gabapentin. Patient was also intoxicated with alcohol. Patient's UDS was also positive for amphetamine and cannabinoids Poison Control was notified and management was coordinated with poison control.e (4) Alcohol intoxication: Code(s): F10.929 - Alcohol use, unspecified with intoxication, unspecified Status: Acute Assessment and Plan: Continue IV fluids but decrease rate Thiamine folic acid (5) Polysubstance abuse: Code(s): F19.10 - Other psychoactive substance abuse, uncomplicated Status: Acute Assessment and Plan: Patient has history of polysubstance abuse including methamphetamine, alcohol, opioids. As per patient's grandmother patient has been in rehab multiple times and has been admitted with overdoses in the past. He has tried to commit suicide also in the past. He has history of mood disorder. Post extubation patient has been complaining of the he is withdrawing from the opioids and requesting opioids. Patient does not have any physical signs or symptoms suggestive of opioid. Patient was started on low-dose oxycodone. Overnight patient was belligerent combative agitated and violent. Security had to be called. Patient was given 3 dose of Ativan. And also started on Precedex infusion. Will wean off Precedex this morning and evaluate patient for the day. Although patient has been on psychiatric medications the past, there is no information or evidence that the patient was taking any psychiatric medications at this time prior to admission hence I have not started him on any medications. (6) Suicide attempt: Code(s): T14.91XA - Suicide attempt, initial encounter Status: Acute Assessment and Plan: Patient has history of depression and has history of suicide attempts in the past. He will be evaluated by Psychiatry post extubation once medical issues are resolved (7) Electrolyte abnormality: Code(s): E87.8 - Other disorders of electrolyte and fluid balance, not elsewhere classified Status: Acute Assessment and Plan: Potassium improved after placement. Magnesium replacement ordered. (8) Fever: Code(s): R50.9 - Fever, unspecified Status: Acute Assessment and Plan: 05/19 New onset fever. WBC normal but increase endotracheal suction secretions Chest x-ray clear Pneumonia versus tracheitis Low procalcitonin, negative MRSA screen, sputum and blood cultures ordered and pending Continue empiric Zosyn (9) Rhabdomyolysis: Code(s): M62.82 - Rhabdomyolysis Status: Acute Assessment and Plan: Creasing CK level likely secondary to agitation Continue IV fluids Subjective Date/time seen: 05/20/24 14:59 Interval history: Had a long discussion with his grandmother, mother and other family members. Patient attempted suicidal a year ago. Patient had multiple rehab admissions. The patient had 2 times drug overdose. Patient was on Suboxone until mid-February and later he was using Kratom (plan based medicine) to reduce his craving. Recently he was living with his uncle and had an argument and then he took a bottle of Prozac, Wellbutrin, gabapentin and approximately 1 g of crystal meth. In regards to his psychiatric condition he is seen at [facility]. Review of Systems Review of Systems: All systems reviewed & are unremarkable except as noted in HPI and below (Subjective) ROS unobtainable: Yes unobtainable due to endotracheal tube, unobtainable due to medical condition and unobtainable due to mental status Exam Narrative: General: Pt is alert awake and in NAD Lungs/Chest: Trachea central Clear BS B/L, No crackles or wheezing. Cardiac: RRR. Normal S1 S2. No murmurs Circulation: Pedal pulses are intact and symmetrical. Abdomen: Normal bowel sounds.. Soft. NT. ND. Extremities: No clubbing, cyanosis or edema. Warm, soft physically restrained : Espinoza in place Neurologic: Follows commands. Moves all 4 extremities PERRL AO x3 Skin: No Rash Const: General: comfortable, no acute distress, well developed, alert, awake and average body habitus Nutritional Appearance: average body habitus Orientation/consciousness: oriented to person and Other orientation findings ( restless, mumbling words, pressure speech.) HENMT: Head: normal to inspection, normocephalic and atraumatic Ears: hearing grossly normal bilaterally Face/Nose/Sinus: normal facial exam Face and sinus: normal facial exam Eyes: General: appearance normal, both eyes and all related structures Pupils: Equal, round and reactive pupils present, Dilated pupils bilaterally and Pupil size comments ( 4 mm) EOM: EOMs intact bilaterally Neck: Neck: full ROM, no lymphadenopathy and no JVD Thyroid: thyroid normal Lymphatic: no lymphadenopathy noted Resp: Effort & Inspection: normal respiratory effort and able to speak in complete sentences Auscultation: clear to auscultation bilaterally Cardio: Jugular venous distension: no JVD Rate: regular rate Rhythm: regular rhythm Heart sounds: S1 normal heart sound present and S2 normal heart sound present : General: Yes deferred Skin: Rashes: no rashes Wounds: no wounds Neuro: General: oriented to person, moves all extremities, no focal motor deficits, CN's II-XI intact bilaterally and Unable to assess gait Cranial nerves: Yes CN's II-XII intact bilaterally and Yes Equal, round and reactive pupils present Cognition (Neuro): abnormal cognition Speech: Other speech findings present (Neuro) ( pressured speech) Gait exam (Neuro): Normal gait present ( at presentation) and Unable to assess gait Motor exam (neuro): 5/5 motor strength present throughout Left pupil size: 0.4 cm Right pupil size: 0.4 cm Extrem: General: normal to inspection, full ROM, no joint enlargement and no pedal edema Objective Data Vital Signs Vital Signs: Vital Signs - 24 hr 05/19/24 16:00 05/19/24 16:00 05/19/24 16:00 Temperature 98.2 F Pulse Rate 81 90 Respiratory Rate 18 Blood Pressure 132/80 Pulse Oximetry 99 97 Oxygen Delivery Room Air Fraction of Inspired Oxygen 05/19/24 18:00 05/19/24 18:00 05/19/24 20:00 Temperature 98.3 F Pulse Rate 83 83 76 Respiratory Rate 14 16 Blood Pressure 147/96 H 136/83 Pulse Oximetry 97 98 Oxygen Delivery Fraction of Inspired Oxygen 05/19/24 19:55 05/19/24 20:00 05/19/24 22:00 Temperature Pulse Rate 76 73 91 Respiratory Rate 16 Blood Pressure Pulse Oximetry 98 Oxygen Delivery Room Air Fraction of Inspired Oxygen 05/19/24 22:00 05/19/24 23:53 05/19/24 23:55 Temperature 98 F Pulse Rate 91 76 87 Respiratory Rate 18 21 H 14 Blood Pressure 148/95 H 135/90 Pulse Oximetry 99 96 98 Oxygen Delivery Room Air Fraction of Inspired Oxygen 05/20/24 00:00 05/20/24 02:00 05/20/24 02:00 Temperature Pulse Rate 90 90 90 Respiratory Rate 15 Blood Pressure 142/80 H Pulse Oximetry 98 Oxygen Delivery Fraction of Inspired Oxygen 05/20/24 04:04 05/20/24 03:46 05/20/24 04:01 Temperature Pulse Rate 107 H 108 H 100 Respiratory Rate 20 30 H 28 H Blood Pressure 135/78 Pulse Oximetry Oxygen Delivery Fraction of Inspired Oxygen 05/20/24 04:16 05/20/24 04:00 05/20/24 04:00 Temperature Pulse Rate 99 108 H 99 Respiratory Rate 12 30 H 12 Blood Pressure 136/81 135/78 Pulse Oximetry 100 100 Oxygen Delivery Room Air Fraction of Inspired Oxygen 05/20/24 04:32 05/20/24 04:31 05/20/24 04:46 Temperature Pulse Rate 91 90 81 Respiratory Rate 24 H 13 25 H Blood Pressure 140/80 136/93 H Pulse Oximetry Oxygen Delivery Fraction of Inspired Oxygen 05/20/24 04:56 05/20/24 04:00 05/20/24 05:49 Temperature Pulse Rate 81 102 H 99 Respiratory Rate 24 H 20 Blood Pressure Pulse Oximetry Oxygen Delivery Fraction of Inspired Oxygen 05/20/24 05:46 05/20/24 06:00 05/20/24 06:00 Temperature Pulse Rate 99 75 78 Respiratory Rate 24 H 24 H Blood Pressure 127/89 131/83 Pulse Oximetry 97 96 Oxygen Delivery Fraction of Inspired Oxygen 05/20/24 06:23 05/20/24 06:46 05/20/24 07:35 Temperature Pulse Rate 72 74 74 Respiratory Rate 16 22 H 25 H Blood Pressure 124/77 Pulse Oximetry 97 Oxygen Delivery Fraction of Inspired Oxygen 05/20/24 08:00 05/20/24 10:00 05/20/24 12:00 Temperature 98.3 F 99 F Pulse Rate 98 98 96 Respiratory Rate 16 15 19 Blood Pressure 132/82 121/86 139/91 H Pulse Oximetry 98 99 99 Oxygen Delivery Fraction of Inspired Oxygen Intake/Output Intake/Output: Intake & Output 05/17/24 05/18/24 05/19/24 05/20/24 23:59 23:59 23:59 23:59 Intake Total 4611.3 4470.4 3679.7 1903.0 Output Total 2300 2600 7725 Balance 2311.3 1870.4 -4045.3 1903.0 Meds/Results Medications: Active Medications Generic Name Dose Route Start Last Admin Trade Name Freq PRN Reason Stop Dose Admin Acetaminophen 650 mg 05/17/24 21:12 05/19/24 16:26 Acetaminophen Elixir 325 Mg/10.15 Ml Udc PO 650 mg Q4H PRN Administration Mild Pain (1-3) or Fever Alprazolam 1 mg 05/20/24 13:34 05/20/24 13:52 Alprazolam (*Crx) 0.5 Mg Tablet PO 1 mg TID PRN Administration Anxiety Amoxicillin/Clavulanate Potassium 1 tablet 05/20/24 21:00 Amoxicillin/Clavulanate K 875-125 Mg Tab PO 05/25/24 20:59 Q12HR ROBERT Dextrose 12.5 gm 05/17/24 08:12 Dextrose 50% 25 Gm/50 Ml Syringe IV PUSH PRN PRN Hypoglycemia Protocol Enoxaparin Sodium 40 mg 05/17/24 09:00 05/20/24 12:39 Enoxaparin 40 Mg/0.4 Ml Syringe SUB-Q 40 mg DAILY ROBERT Administration Glucagon 1 mg 05/17/24 08:12 Glucagon For Inj 1 Mg Vial IM PRN PRN Hypoglycemia Protocol Glucose 15 gm 05/17/24 08:12 Glucose Oral Gel 15 Gm Of Glucse In 37.5 Gm Tube PO PRN PRN Hypoglycemia Protocol Lactated Ringer's 1,000 mls @ 125 mls/hr 05/16/24 20:30 05/20/24 13:52 Lr - Lactated Ringers Iv IV CONT 125 mls/hr .Q8H ROBERT Administration Dextrose 1,000 mls @ 100 mls/hr 05/17/24 08:12 Dextrose 5% 1,000 Ml IVPB PRN PRN Hypoglycemia Protocol Dexmedetomidine HCl 400 mcg in 100 mls @ 0 mls/hr 05/20/24 03:50 05/20/24 07:35 Precedex 400 Mcg/100 Ml IV CONT 0 mcg/kg/hr .Q0M ROBERT 0 mls/hr Titration Protocol Oxycodone HCl 5 mg 05/20/24 13:36 Oxycodone Hcl (*Crx) 5 Mg Tab Ir PO Q4H PRN Pain Rated 7-10 Sodium Chloride 10 ml 05/17/24 14:00 05/20/24 13:53 Central Line Flush IV PUSH 10 ml Q8HR ROBERT Administration Sodium Chloride 20 ml 05/17/24 06:07 Central Line Flush IV PUSH PRN PRN after blood draws Radiology Results: ITS Impressions Abdomen X-Ray 05/17/24 05:47 Impression: NG tube in satisfactory position. Head CT 05/17/24 15:14 IMPRESSION: No acute intracranial findings. Chest X-Ray 05/19/24 06:31 Impression: Clear lungs. Support tubes, as above. Labs Labs: Laboratory Results - last 24 hr 05/20/24 05:00 WBC 9.7 RBC 3.99 L Hgb 12.9 L Hct 38.0 L MCV 95.2 MCH 32.3 MCHC 33.9 RDW 13.7 Plt Count 199 MPV 9.5 Sodium 136 L Potassium 4.2 Chloride 102 Carbon Dioxide 27 Anion Gap 7 BUN 5 L Creatinine 0.60 L Estim Creat Clear Calc 158 Estimated GFR > 60 Glucose 120 H Calcium 9.2 Phosphorus 3.4 Magnesium 1.7 Total Bilirubin 0.8 AST 175 H ALT 86 H Alkaline Phosphatase 86 Total Creatine Kinase 4030 H Total Protein 7.0 Albumin 4.1 Triglycerides 83 Hospitalist [facility] Advance Care Plan I have confirmed that the patient's Advanced Care Plan is present, code status is documented, or surrogate decision maker is listed in patient medical record.: Yes Medication Reconciliation I have utilized all available resources to obtain, update and review the patients current medications (includes all prescriptions, OTC, herbals, cannabis, and nutritional supplements).: Yes
[2024-05-20] MEDS: oxyCODONE HCL (*CRX) 5 MG TAB IR PO (19:46)
[2024-05-20] MEDS: AMOXICILLIN/CLAVULANATE K 875-125 MG TAB 1 TABLET PO (21:46)
[2024-05-21] VITALS (10 sets, daily range): BP systolic 113–138; BP diastolic 85–99; PULSE 66–81; RESP 14–19; TEMP 36.6–36.7; O2SAT 96–100
[2024-05-21] MEDS: oxyCODONE HCL (*CRX) 5 MG TAB IR PO ×5 (00:48→21:45)
[2024-05-21] MEDS: ACETAMINOPHEN ELIXIR 325 MG/10.15 ML UDC 650 MG PO (00:48)
[2024-05-21 05:37] LABS: Hemoglobin 12.6 g/dL (14.0-18.0); Mean Corpuscular HGB Conc 33.2 g/dl (32-36); Mean Corpuscular Hemoglobin 31.7 pg (26-34); Mean Corpuscular Volume 95.5 fl (80-100); Platelet Count Result 228 k/mm3 (150-375); Red Blood Count 3.98 M/mm3 (4.6-6.20); Red Cell Distribution Width 13.5 % (11.5-14.5); White Blood Count 8.8 K/mm3 (4.5-10.0)
[2024-05-21 05:51] LABS: Alanine Aminotransferase 67 U/L (6-50); Albumin Level 3.7 g/dL (3.5-5.1); Alkaline Phosphatase 71 U/L (38-126); Anion Gap 7 mmol/L (4-12); Aspartate Amino Transferase 87 U/L (17-59); Bilirubin,Total 0.5 mg/dL (0.2-1.3); Blood Urea Nitrogen 5 mg/dL (9-20); Carbon Dioxide 27 mmol/L (22-30); Chloride 104 mmol/L (98-107); Creatine Kinase 995 U/L (55-170); Estimated CRCL calculation 158 ml/min; Estimated Glomerular Filt Rate > 60; Glucose 100 mg/dL (65-110); Phosphorus 3.4 mg/dL (2.5-4.5); Potassium 4.1 mmol/L (3.4-5.0); Sodium 138 mmol/L (137-145)
[2024-05-21] MEDS: CENTRAL LINE FLUSH 10 ML IV PUSH (06:33)
[2024-05-21] MEDS: LACTATED RINGERS 1,000 ML 125 ML IV CONT ×2 (06:33→17:10)
[2024-05-21] MEDS: AMOXICILLIN/CLAVULANATE K 875-125 MG TAB 1 TABLET PO ×2 (08:19→20:00)
[2024-05-21] MEDS: ALPRAZolam (*CRX) 0.5 MG TABLET 1 MG PO ×2 (08:19→17:12)
[2024-05-21] MEDS: ENOXAPARIN 40 MG/0.4 ML SYRINGE SUB-Q (08:19)
--- NOTE | 2024-05-21 08:19 | WPDINTPN ---
Progress Note: A&P Assessment and Plan (1) Acute respiratory failure: Code(s): J96.00 - Acute respiratory failure, unspecified whether with hypoxia or hypercapnia Status: Acute Assessment and Plan: Acute respiratory failure secondary to status epilepticus Patient was intubated and sedated 05/19 extubated Now on room air Monitor (2) Status epilepticus: Code(s): G40.901 - Epilepsy, unspecified, not intractable, with status epilepticus Status: Acute Assessment and Plan: Status epilepticus secondary to gabapentin overdose Patient now intubated and sedated on mechanical ventilation Continue propofol and Versed Neurology following Head CT was negative acute change EEG No significant abnormalities noted in this tracing which mainly comprises of sedated patient without any focal paroxysmal or slow activity consider the possibility of status epilepticus or focal structural lesion clinical correlation recommended. Patient has been accepted at [facility] but is on waiting list for transfer continues EEG monitoring 05/19 patient was taken off of sedation and extubated. He has not had any recurrence of seizures since then. (3) Drug overdose: Qualifiers: Encounter type: initial encounter Injury intent: undetermined intent Qualified Code(s): T50.904A - Poisoning by unspecified drugs, medicaments and biological substances, undetermined, initial encounter Code(s): T50.901A - Poisoning by unspecified drugs, medicaments and biological substances, accidental (unintentional), initial encounter Status: Acute Assessment and Plan: Overdose of fluoxetine and gabapentin. Patient was also intoxicated with alcohol. Patient's UDS was also positive for amphetamine and cannabinoids Poison Control was notified and management was coordinated with poison control (4) Alcohol intoxication: Code(s): F10.929 - Alcohol use, unspecified with intoxication, unspecified Status: Acute Assessment and Plan: Continue IV fluids but decrease rate Thiamine folic acid (5) Polysubstance abuse: Code(s): F19.10 - Other psychoactive substance abuse, uncomplicated Status: Acute Assessment and Plan: Patient has history of polysubstance abuse including methamphetamine, alcohol, opioids. As per patient's grandmother patient has been in rehab multiple times and has been admitted with overdoses in the past. He has tried to commit suicide also in the past. He has history of mood disorder. Post extubation patient has been complaining of the he is withdrawing from the opioids and requesting opioids. Patient does not have any physical signs or symptoms suggestive of opioid. Patient was started on low-dose oxycodone. Overnight patient was belligerent combative agitated and violent. Security had to be called. Patient was given 3 dose of Ativan. And also started on Precedex infusion. Will wean off Precedex this morning and evaluate patient for the day. Although patient has been on psychiatric medications the past, there is no information or evidence that the patient was taking any psychiatric medications at this time prior to admission hence I have not started him on any medications. 05/20 I spoke to patient and his mother at bedside. She told me Patient had multiple rehab admissions and attempts of drug overdose. Patient was on Suboxone until mid-February and later he was using Kratom (plan based medicine) to reduce his craving. Recently he was living with his uncle and had an argument and then he took a bottle of Prozac, Wellbutrin, gabapentin and approximately 1 g of crystal meth. In regards to his psychiatric condition he is seen by Ernie Lockhart at [facility] in [place]. I emphasized patient's current situation and current treatment plan and importance of being cooperative and calm with the staff members which will allow him to be evaluated by Psychiatry and allows to come up with a discharge plan for him. (6) Suicide attempt: Code(s): T14.91XA - Suicide attempt, initial encounter Status: Acute Assessment and Plan: Patient has history of depression and has history of suicide attempts in the past. He will be evaluated by Psychiatry post extubation once medical issues are resolved (7) Electrolyte abnormality: Code(s): E87.8 - Other disorders of electrolyte and fluid balance, not elsewhere classified Status: Acute Assessment and Plan: Potassium and magnesium improved after replacement (8) Fever: Code(s): R50.9 - Fever, unspecified Status: Acute Assessment and Plan: 05/19 New onset fever. WBC normal but increase endotracheal suction secretions Chest x-ray clear Pneumonia versus tracheitis Low procalcitonin, negative MRSA screen, sputum and blood cultures ordered and pending Patient was started on Zosyn and switched to Augmentin Patient now afebrile and WBC normal. He is on room air (9) Rhabdomyolysis: Code(s): M62.82 - Rhabdomyolysis Status: Acute Assessment and Plan: CK level is decreased Continue IV fluids Plan DVT prophylaxis -Lovenox Stress ulcer prophylaxis -PPI Nutrition -diet ordered Code Status - Full Code Transfer out of ICU today Subjective Date/time seen: 05/21/24 Overnight events reviewed. Afebrile On room air Tolerating p.o. diet Overnight patient continues to request different medications for his 'withdrawal' but overall remained calm and cooperative with the staff with no new incidents Complains of anxiety and withdrawal but denies any other complaints. All other systems were reviewed and were negative Other Vitals acceptable Review of Systems Review of Systems: All systems reviewed & are unremarkable except as noted in HPI and below (Subjective) Exam Narrative: General: Pt is alert awake and in NAD Lungs/Chest: Trachea central Clear BS B/L, No crackles or wheezing. Cardiac: RRR. Normal S1 S2. No murmurs Circulation: Pedal pulses are intact and symmetrical. Abdomen: Normal bowel sounds.. Soft. NT. ND. Extremities: No clubbing, cyanosis or edema. Warm, : Espinoza in place Neurologic: Follows commands. Moves all 4 extremities PERRL AO x3 Skin: No Rash Objective Data Vital Signs Vital Signs: Vital Signs - 24 hr 05/20/24 10:00 05/20/24 12:00 05/20/24 12:00 Temperature 37.2 C Pulse Rate 98 96 Respiratory Rate 15 19 Blood Pressure 121/86 139/91 H Pulse Oximetry 99 99 Oxygen Delivery Room Air 05/20/24 10:00 05/20/24 12:00 05/20/24 14:00 Temperature Pulse Rate 96 83 94 Respiratory Rate Blood Pressure Pulse Oximetry Oxygen Delivery 05/20/24 16:00 05/20/24 16:00 05/20/24 18:00 Temperature Pulse Rate 85 83 93 Respiratory Rate 26 H Blood Pressure 111/70 Pulse Oximetry Oxygen Delivery 05/20/24 18:00 05/20/24 20:00 05/20/24 20:00 Temperature Pulse Rate 87 87 87 Respiratory Rate 23 H 23 H Blood Pressure 121/74 Pulse Oximetry 98 98 Oxygen Delivery Room Air 05/20/24 20:00 05/20/24 22:00 05/20/24 22:00 Temperature 36.8 C Pulse Rate 95 68 68 Respiratory Rate 22 H 25 H Blood Pressure 115/73 Pulse Oximetry 96 Oxygen Delivery 05/20/24 23:48 05/20/24 23:50 05/21/24 00:00 Temperature Pulse Rate 7 L 68 68 Respiratory Rate 20 18 Blood Pressure Pulse Oximetry 96 Oxygen Delivery Room Air 05/21/24 02:00 05/21/24 04:00 05/21/24 04:00 Temperature Pulse Rate 71 66 66 Respiratory Rate 18 Blood Pressure Pulse Oximetry 96 Oxygen Delivery Room Air 05/21/24 04:00 05/21/24 06:00 05/21/24 08:00 Temperature 36.6 C 36.6 C Pulse Rate 80 66 76 Respiratory Rate 16 16 Blood Pressure 124/96 H 137/99 H Pulse Oximetry 99 Oxygen Delivery Intake/Output Intake/Output: Intake & Output 05/18/24 05/19/24 05/20/24 05/21/24 23:59 23:59 23:59 23:59 Intake Total 4470.4 3679.7 4278.6 1400 Output Total 2600 7725 700 450 Balance 1870.4 -4045.3 3578.6 950 Meds/Results Medications: Active Medications Generic Name Dose Route Start Last Admin Trade Name Freq PRN Reason Stop Dose Admin Acetaminophen 650 mg 05/17/24 21:12 05/21/24 00:48 Acetaminophen Elixir 325 Mg/10.15 Ml Udc PO 650 mg Q4H PRN Administration Mild Pain (1-3) or Fever Alprazolam 1 mg 05/20/24 21:06 05/20/24 21:46 Alprazolam (*Crx) 0.5 Mg Tablet PO 1 mg Q8H PRN Administration Anxiety Amoxicillin/Clavulanate Potassium 1 tablet 05/20/24 21:00 05/20/24 21:46 Amoxicillin/Clavulanate K 875-125 Mg Tab PO 05/25/24 20:59 1 tablet Q12HR ROBERT Administration Dextrose 12.5 gm 05/17/24 08:12 Dextrose 50% 25 Gm/50 Ml Syringe IV PUSH PRN PRN Hypoglycemia Protocol Enoxaparin Sodium 40 mg 05/17/24 09:00 05/20/24 12:39 Enoxaparin 40 Mg/0.4 Ml Syringe SUB-Q 40 mg DAILY ROBERT Administration Glucagon 1 mg 05/17/24 08:12 Glucagon For Inj 1 Mg Vial IM PRN PRN Hypoglycemia Protocol Glucose 15 gm 05/17/24 08:12 Glucose Oral Gel 15 Gm Of Glucse In 37.5 Gm Tube PO PRN PRN Hypoglycemia Protocol Lactated Ringer's 1,000 mls @ 125 mls/hr 05/16/24 20:30 05/21/24 06:33 Lr - Lactated Ringers Iv IV CONT 125 mls/hr .Q8H ROBERT Administration Dextrose 1,000 mls @ 100 mls/hr 05/17/24 08:12 Dextrose 5% 1,000 Ml IVPB PRN PRN Hypoglycemia Protocol Dexmedetomidine HCl 400 mcg in 100 mls @ 0 mls/hr 05/20/24 03:50 05/20/24 07:35 Precedex 400 Mcg/100 Ml IV CONT 0 mcg/kg/hr .Q0M ROBERT 0 mls/hr Titration Protocol Oxycodone HCl 5 mg 05/20/24 13:36 05/21/24 05:27 Oxycodone Hcl (*Crx) 5 Mg Tab Ir PO 5 mg Q4H PRN Administration Pain Rated 7-10 Sodium Chloride 10 ml 05/17/24 14:00 05/21/24 06:33 Central Line Flush IV PUSH 10 ml Q8HR ROBERT Administration Sodium Chloride 20 ml 05/17/24 06:07 Central Line Flush IV PUSH PRN PRN after blood draws Radiology Results: ITS Impressions Abdomen X-Ray 05/17/24 05:47 Impression: NG tube in satisfactory position. Head CT 05/17/24 15:14 IMPRESSION: No acute intracranial findings. Chest X-Ray 05/19/24 06:31 Impression: Clear lungs. Support tubes, as above. Labs Labs: Laboratory Results - last 24 hr 05/21/24 05:26 WBC 8.8 RBC 3.98 L Hgb 12.6 L Hct 38.0 L MCV 95.5 MCH 31.7 MCHC 33.2 RDW 13.5 Plt Count 228 MPV 9.0 Sodium 138 Potassium 4.1 Chloride 104 Carbon Dioxide 27 Anion Gap 7 BUN 5 L Creatinine 0.60 L Estim Creat Clear Calc 158 Estimated GFR > 60 Glucose 100 Calcium 9.0 Phosphorus 3.4 Magnesium 2.0 Total Bilirubin 0.5 AST 87 H ALT 67 H Alkaline Phosphatase 71 Total Creatine Kinase 995 H Total Protein 7.0 Albumin 3.7
--- NOTE | 2024-05-21 12:40 | PM.IMPN ---
Progress Note: A&P Assessment and Plan (1) Acute respiratory failure: Code(s): J96.00 - Acute respiratory failure, unspecified whether with hypoxia or hypercapnia Status: Acute Assessment and Plan: Acute respiratory failure secondary to status epilepticus Patient was intubated and sedated 05/19 extubated Now on room air Monitor (2) Status epilepticus: Code(s): G40.901 - Epilepsy, unspecified, not intractable, with status epilepticus Status: Acute Assessment and Plan: Status epilepticus secondary to gabapentin overdose Patient now intubated and sedated on mechanical ventilation Continue propofol and Versed Neurology following Head CT was negative acute change EEG No significant abnormalities noted in this tracing which mainly comprises of sedated patient without any focal paroxysmal or slow activity consider the possibility of status epilepticus or focal structural lesion clinical correlation recommended. Research Worker Encyclopedia wanted continues EEG tracing and initiated transfer and was accepted at [facility] but is on waiting list for transfer continues EEG monitoring 05/19 patient was taken off of sedation and extubated. He has not had any recurrence of seizures since then. Patient has no seizures after extubation. Patient can be evaluated by neurologist as an outpatient. (3) Drug overdose: Qualifiers: Encounter type: initial encounter Injury intent: undetermined intent Qualified Code(s): T50.904A - Poisoning by unspecified drugs, medicaments and biological substances, undetermined, initial encounter Code(s): T50.901A - Poisoning by unspecified drugs, medicaments and biological substances, accidental (unintentional), initial encounter Status: Acute Assessment and Plan: Overdose of fluoxetine and gabapentin. Patient was also intoxicated with alcohol. Patient's UDS was also positive for amphetamine and cannabinoids Poison Control was notified and management was coordinated with poison control (4) Alcohol intoxication: Code(s): F10.929 - Alcohol use, unspecified with intoxication, unspecified Status: Acute Assessment and Plan: Continue IV fluids but decrease rate Thiamine folic acid (5) Suicide attempt: Code(s): T14.91XA - Suicide attempt, initial encounter Status: Acute Assessment and Plan: Patient has history of depression and has history of suicide attempts in the past. He will be evaluated by Psychiatry post extubation once medical issues are resolved (6) Electrolyte abnormality: Code(s): E87.8 - Other disorders of electrolyte and fluid balance, not elsewhere classified Status: Acute Assessment and Plan: Potassium and magnesium improved after replacement (7) Fever: Code(s): R50.9 - Fever, unspecified Status: Acute Assessment and Plan: 05/19 New onset fever. WBC normal but increase endotracheal suction secretions Chest x-ray clear Pneumonia versus tracheitis Low procalcitonin, negative MRSA screen, sputum and blood cultures ordered and pending Patient was started on Zosyn and switched to Augmentin Patient now afebrile and WBC normal. He is on room air (8) Rhabdomyolysis: Code(s): M62.82 - Rhabdomyolysis Status: Acute Assessment and Plan: CK level is decreased Continue IV fluids Plan DVT prophylaxis -Lovenox Stress ulcer prophylaxis -PPI Nutrition -diet ordered Code Status - Full Code Transfer out of ICU today Subjective Date/time seen: 05/21/24 12:40 Interval history: Evaluated at bedside. Endorse anxiousness. Medically cleared and will be evaluated by Crisis team for his SI. Review of Systems Review of Systems: All systems reviewed & are unremarkable except as noted in HPI and below (Subjective) ROS unobtainable: Yes unobtainable due to endotracheal tube, unobtainable due to medical condition and unobtainable due to mental status Exam Narrative: General: Pt is alert awake and in NAD Lungs/Chest: Trachea central Clear BS B/L, No crackles or wheezing. Cardiac: RRR. Normal S1 S2. No murmurs Circulation: Pedal pulses are intact and symmetrical. Abdomen: Normal bowel sounds.. Soft. NT. ND. Extremities: No clubbing, cyanosis or edema. Warm, : Espinoza in place Neurologic: Follows commands. Moves all 4 extremities PERRL AO x3 Skin: No Rash Const: General: comfortable, no acute distress, well developed, alert, awake and average body habitus Nutritional Appearance: average body habitus Orientation/consciousness: oriented to person and Other orientation findings ( restless, mumbling words, pressure speech.) HENMT: Head: normal to inspection, normocephalic and atraumatic Ears: hearing grossly normal bilaterally Face/Nose/Sinus: normal facial exam Face and sinus: normal facial exam Eyes: General: appearance normal, both eyes and all related structures Pupils: Equal, round and reactive pupils present, Dilated pupils bilaterally and Pupil size comments ( 4 mm) EOM: EOMs intact bilaterally Neck: Neck: full ROM, no lymphadenopathy and no JVD Thyroid: thyroid normal Lymphatic: no lymphadenopathy noted Resp: Effort & Inspection: normal respiratory effort and able to speak in complete sentences Auscultation: clear to auscultation bilaterally Cardio: Jugular venous distension: no JVD Rate: regular rate Rhythm: regular rhythm Heart sounds: S1 normal heart sound present and S2 normal heart sound present : General: Yes deferred Skin: Rashes: no rashes Wounds: no wounds Neuro: General: oriented to person, moves all extremities, no focal motor deficits, CN's II-XI intact bilaterally and Unable to assess gait Cranial nerves: Yes CN's II-XII intact bilaterally and Yes Equal, round and reactive pupils present Cognition (Neuro): abnormal cognition Speech: Other speech findings present (Neuro) ( pressured speech) Gait exam (Neuro): Normal gait present ( at presentation) and Unable to assess gait Motor exam (neuro): 5/5 motor strength present throughout Left pupil size: 0.4 cm Right pupil size: 0.4 cm Extrem: General: normal to inspection, full ROM, no joint enlargement and no pedal edema Objective Data Vital Signs Vital Signs: Vital Signs - 24 hr 05/20/24 14:00 05/20/24 16:00 05/20/24 16:00 Temperature Pulse Rate 94 85 83 Respiratory Rate 26 H Blood Pressure 111/70 Pulse Oximetry Oxygen Delivery 05/20/24 18:00 05/20/24 18:00 05/20/24 20:00 Temperature Pulse Rate 93 87 87 Respiratory Rate 23 H 23 H Blood Pressure 121/74 Pulse Oximetry 98 98 Oxygen Delivery Room Air 05/20/24 20:00 05/20/24 20:00 05/20/24 22:00 Temperature 98.3 F Pulse Rate 87 95 68 Respiratory Rate 22 H Blood Pressure 115/73 Pulse Oximetry 96 Oxygen Delivery 05/20/24 22:00 05/20/24 23:48 05/20/24 23:50 Temperature Pulse Rate 68 7 L 68 Respiratory Rate 25 H 20 Blood Pressure Pulse Oximetry Oxygen Delivery Room Air 05/21/24 00:00 05/21/24 02:00 05/21/24 04:00 Temperature Pulse Rate 68 71 66 Respiratory Rate 18 18 Blood Pressure Pulse Oximetry 96 96 Oxygen Delivery Room Air 05/21/24 04:00 05/21/24 04:00 05/21/24 06:00 Temperature 98 F Pulse Rate 66 80 66 Respiratory Rate 16 Blood Pressure 124/96 H Pulse Oximetry Oxygen Delivery 05/21/24 08:00 05/21/24 09:01 05/21/24 09:41 Temperature 97.9 F Pulse Rate 76 72 Respiratory Rate 16 14 Blood Pressure 137/99 H 113/85 Pulse Oximetry 99 97 100 Oxygen Delivery Room Air 05/21/24 08:00 05/21/24 10:00 05/21/24 10:00 Temperature Pulse Rate 77 71 80 Respiratory Rate 15 Blood Pressure Pulse Oximetry Oxygen Delivery Intake/Output Intake/Output: Intake & Output 05/18/24 05/19/24 05/20/24 05/21/24 23:59 23:59 23:59 23:59 Intake Total 4470.4 3679.7 4278.6 1640 Output Total 2600 7725 700 450 Balance 1870.4 -4045.3 3578.6 1190 Meds/Results Medications: Active Medications Generic Name Dose Route Start Last Admin Trade Name Freq PRN Reason Stop Dose Admin Acetaminophen 650 mg 05/17/24 21:12 05/21/24 00:48 Acetaminophen Elixir 325 Mg/10.15 Ml Udc PO 650 mg Q4H PRN Administration Mild Pain (1-3) or Fever Alprazolam 1 mg 05/20/24 21:06 05/21/24 08:19 Alprazolam (*Crx) 0.5 Mg Tablet PO 1 mg Q8H PRN Administration Anxiety Amoxicillin/Clavulanate Potassium 1 tablet 05/20/24 21:00 05/21/24 08:19 Amoxicillin/Clavulanate K 875-125 Mg Tab PO 05/25/24 20:59 1 tablet Q12HR ROBERT Administration Dextrose 12.5 gm 05/17/24 08:12 Dextrose 50% 25 Gm/50 Ml Syringe IV PUSH PRN PRN Hypoglycemia Protocol Enoxaparin Sodium 40 mg 05/17/24 09:00 05/21/24 08:19 Enoxaparin 40 Mg/0.4 Ml Syringe SUB-Q 40 mg DAILY ROBERT Administration Glucagon 1 mg 05/17/24 08:12 Glucagon For Inj 1 Mg Vial IM PRN PRN Hypoglycemia Protocol Glucose 15 gm 05/17/24 08:12 Glucose Oral Gel 15 Gm Of Glucse In 37.5 Gm Tube PO PRN PRN Hypoglycemia Protocol Lactated Ringer's 1,000 mls @ 125 mls/hr 05/16/24 20:30 05/21/24 06:33 Lr - Lactated Ringers Iv IV CONT 125 mls/hr .Q8H ROBERT Administration Dextrose 1,000 mls @ 100 mls/hr 05/17/24 08:12 Dextrose 5% 1,000 Ml IVPB PRN PRN Hypoglycemia Protocol Oxycodone HCl 5 mg 05/20/24 13:36 05/21/24 09:42 Oxycodone Hcl (*Crx) 5 Mg Tab Ir PO 5 mg Q4H PRN Administration Pain Rated 7-10 Sodium Chloride 10 ml 05/17/24 14:00 05/21/24 06:33 Central Line Flush IV PUSH 10 ml Q8HR ROBERT Administration Sodium Chloride 20 ml 05/17/24 06:07 Central Line Flush IV PUSH PRN PRN after blood draws Radiology Results: ITS Impressions Abdomen X-Ray 05/17/24 05:47 Impression: NG tube in satisfactory position. Head CT 05/17/24 15:14 IMPRESSION: No acute intracranial findings. Chest X-Ray 05/19/24 06:31 Impression: Clear lungs. Support tubes, as above. Labs Labs: Laboratory Results - last 24 hr 05/21/24 05:26 WBC 8.8 RBC 3.98 L Hgb 12.6 L Hct 38.0 L MCV 95.5 MCH 31.7 MCHC 33.2 RDW 13.5 Plt Count 228 MPV 9.0 Sodium 138 Potassium 4.1 Chloride 104 Carbon Dioxide 27 Anion Gap 7 BUN 5 L Creatinine 0.60 L Estim Creat Clear Calc 158 Estimated GFR > 60 Glucose 100 Calcium 9.0 Phosphorus 3.4 Magnesium 2.0 Total Bilirubin 0.5 AST 87 H ALT 67 H Alkaline Phosphatase 71 Total Creatine Kinase 995 H Total Protein 7.0 Albumin 3.7 Hospitalist MIPS Advance Care Plan I have confirmed that the patient's Advanced Care Plan is present, code status is documented, or surrogate decision maker is listed in patient medical record.: Yes Medication Reconciliation I have utilized all available resources to obtain, update and review the patients current medications (includes all prescriptions, OTC, herbals, cannabis, and nutritional supplements).: Yes
[2024-05-21 18:12] LABS: SARS-CoV-2 RNA PCR Negative (Negative)
[2024-05-21] MEDS: GABAPENTIN 100 MG CAPSULE PO ×2 (18:55→21:02)
[2024-05-22] VITALS (9 sets, daily range): BP systolic 103–143; BP diastolic 65–90; PULSE 65–86; RESP 16–19; TEMP 36.4–37.4; O2SAT 95–100
[2024-05-22] MEDS: LACTATED RINGERS 1,000 ML 125 ML IV CONT (00:30)
[2024-05-22] MEDS: ALPRAZolam (*CRX) 0.5 MG TABLET 1 MG PO ×3 (00:56→17:40)
[2024-05-22] MEDS: oxyCODONE HCL (*CRX) 5 MG TAB IR PO ×5 (01:42→22:10)
[2024-05-22] MEDS: LORazepam INJ (*CRX) 2 MG/ML VIAL 1 MG IV PUSH ×2 (03:17→13:27)
[2024-05-22] MEDS: diphenhydrAMINE HCl INJ 50 MG/ML VIAL IV PUSH (03:17)
[2024-05-22] MEDS: GABAPENTIN 100 MG CAPSULE PO ×3 (06:30→20:43)
[2024-05-22 06:34] LABS: Hematocrit 40.2 % (42.0-52.0); Hemoglobin 13.3 g/dL (14.0-18.0); Mean Corpuscular HGB Conc 33.1 g/dl (32-36); Mean Corpuscular Hemoglobin 31.7 pg (26-34); Mean Corpuscular Volume 95.9 fl (80-100); Platelet Count Result 256 k/mm3 (150-375); Red Blood Count 4.19 M/mm3 (4.6-6.20); Red Cell Distribution Width 13.2 % (11.5-14.5); White Blood Count 8.5 K/mm3 (4.5-10.0)
[2024-05-22 06:47] LABS: Alanine Aminotransferase 47 U/L (6-50); Albumin Level 3.7 g/dL (3.5-5.1); Alkaline Phosphatase 60 U/L (38-126); Anion Gap 6 mmol/L (4-12); Aspartate Amino Transferase 44 U/L (17-59); Bilirubin,Total 0.5 mg/dL (0.2-1.3); Blood Urea Nitrogen 7 mg/dL (9-20); Carbon Dioxide 28 mmol/L (22-30); Chloride 106 mmol/L (98-107); Creatine Kinase 335 U/L (55-170); Estimated CRCL calculation 126 ml/min; Estimated Glomerular Filt Rate > 60; Glucose 93 mg/dL (65-110); Magnesium 1.8 mg/dL (1.6-2.3); Phosphorus 3.6 mg/dL (2.5-4.5); Potassium 3.5 mmol/L (3.4-5.0); Sodium 140 mmol/L (137-145)
--- NOTE | 2024-05-22 06:52 | PC.NURSE ---
patient transferred from ICU room 2 to room 333 on med surg at 0300. No signs of distress at this time.
--- NOTE | 2024-05-22 08:30 | PC.NURSE ---
This RN called Poison Control. Per SHAN [facility], patient is cleared per Poison Control. Case was closed on 05/21/24 at 1430. Kimberly reviewed patient information again. Most recent EKG results reviewed with Kimberly. Per Kimberly, with Poison Control, QT levels are within acceptable range. Floor RN made aware. Hospitalist made aware. [facility] called stating they have patient accepted and bed availability. Care coordination notified.
[2024-05-22] MEDS: AMOXICILLIN/CLAVULANATE K 875-125 MG TAB 1 TABLET PO ×2 (08:41→20:43)
[2024-05-22] MEDS: ENOXAPARIN 40 MG/0.4 ML SYRINGE SUB-Q (08:42)
--- NOTE | 2024-05-22 10:55 | PM.IMPN ---
Progress Note: A&P Assessment and Plan (1) Acute respiratory failure: Code(s): J96.00 - Acute respiratory failure, unspecified whether with hypoxia or hypercapnia Status: Acute Assessment and Plan: Acute respiratory failure secondary to status epilepticus Patient was intubated and sedated 05/19 extubated Now on room air Monitor (2) Status epilepticus: Code(s): G40.901 - Epilepsy, unspecified, not intractable, with status epilepticus Status: Acute Assessment and Plan: Status epilepticus secondary to gabapentin overdose Extubated and currently on room S/P intubated and sedated on mechanical ventilation S/P propofol and Versed Neurology following Head CT was negative acute change EEG No significant abnormalities noted in this tracing which mainly comprises of sedated patient without any focal paroxysmal or slow activity consider the possibility of status epilepticus or focal structural lesion clinical correlation recommended. Steel Construction Worker wanted continues EEG tracing and initiated transfer and was accepted at [facility] but is on waiting list for transfer continues EEG monitoring 05/19 patient was taken off of sedation and extubated. He has not had any recurrence of seizures since then. Patient has no seizures after extubation. Patient can be evaluated by neurologist as an outpatient. (3) Drug overdose: Qualifiers: Encounter type: initial encounter Injury intent: undetermined intent Qualified Code(s): T50.904A - Poisoning by unspecified drugs, medicaments and biological substances, undetermined, initial encounter Code(s): T50.901A - Poisoning by unspecified drugs, medicaments and biological substances, accidental (unintentional), initial encounter Status: Acute Assessment and Plan: Overdose of fluoxetine and gabapentin. Patient was also intoxicated with alcohol. Patient's UDS was also positive for amphetamine and cannabinoids Poison Control was notified and management was coordinated with poison control (4) Alcohol intoxication: Code(s): F10.929 - Alcohol use, unspecified with intoxication, unspecified Status: Acute Assessment and Plan: Gabapentin 100 mg p.o. t.i.d. Thiamine folic acid (5) Suicide attempt: Code(s): T14.91XA - Suicide attempt, initial encounter Status: Acute Assessment and Plan: Patient has history of depression and has history of suicide attempts in the past. He will be transferred to [facility] (6) Electrolyte abnormality: Code(s): E87.8 - Other disorders of electrolyte and fluid balance, not elsewhere classified Status: Acute Assessment and Plan: Potassium and magnesium improved after replacement (7) Fever: Code(s): R50.9 - Fever, unspecified Status: Acute Assessment and Plan: 05/19 New onset fever. WBC normal but increase endotracheal suction secretions Chest x-ray clear Pneumonia versus tracheitis Low procalcitonin, negative MRSA screen, sputum and blood cultures ordered and pending Patient was started on Zosyn and switched to Augmentin Patient now afebrile and WBC normal. He is on room air (8) Rhabdomyolysis: Code(s): M62.82 - Rhabdomyolysis Status: Acute Assessment and Plan: CK level is decreased Continue IV fluids if necessary Plan DVT prophylaxis -Lovenox Stress ulcer prophylaxis -PPI Nutrition -diet ordered Code Status - Full Code Subjective Date/time seen: 05/22/24 10:55 Interval history: The patient is resting well. I discussed the case with neurologist Dr. Clark. The patient is currently not on any antiepileptic medications. I believe his seizures happened when he was intubated, probably from alcohol withdrawal. The neurologist also agrees with that. I would recommend following a neurologist as an outpatient. Currently, the patient is pending transfer to [facility]. Review of Systems Review of Systems: All systems reviewed & are unremarkable except as noted in HPI and below (Subjective) Exam Narrative: General: Pt is alert awake and in NAD Lungs/Chest: Trachea central Clear BS B/L, No crackles or wheezing. Cardiac: RRR. Normal S1 S2. No murmurs Circulation: Pedal pulses are intact and symmetrical. Abdomen: Normal bowel sounds.. Soft. NT. ND. Extremities: No clubbing, cyanosis or edema. Warm, : Espinoza in place Neurologic: Follows commands. Moves all 4 extremities PERRL AO x3 Skin: No Rash Const: General: comfortable, no acute distress, well developed, alert, awake and average body habitus Nutritional Appearance: average body habitus Orientation/consciousness: oriented to person and Other orientation findings ( restless, mumbling words, pressure speech.) HENMT: Head: normal to inspection, normocephalic and atraumatic Ears: hearing grossly normal bilaterally Face/Nose/Sinus: normal facial exam Face and sinus: normal facial exam Eyes: General: appearance normal, both eyes and all related structures Pupils: Equal, round and reactive pupils present, Dilated pupils bilaterally and Pupil size comments ( 4 mm) EOM: EOMs intact bilaterally Neck: Neck: full ROM, no lymphadenopathy and no JVD Thyroid: thyroid normal Lymphatic: no lymphadenopathy noted Resp: Effort & Inspection: normal respiratory effort and able to speak in complete sentences Auscultation: clear to auscultation bilaterally Cardio: Jugular venous distension: no JVD Rate: regular rate Rhythm: regular rhythm Heart sounds: S1 normal heart sound present and S2 normal heart sound present : General: Yes deferred Skin: Rashes: no rashes Wounds: no wounds Neuro: General: oriented to person, moves all extremities, no focal motor deficits, CN's II-XI intact bilaterally and Unable to assess gait Cranial nerves: Yes CN's II-XII intact bilaterally and Yes Equal, round and reactive pupils present Cognition (Neuro): abnormal cognition Speech: Other speech findings present (Neuro) ( pressured speech) Gait exam (Neuro): Normal gait present ( at presentation) and Unable to assess gait Motor exam (neuro): 5/5 motor strength present throughout Left pupil size: 0.4 cm Right pupil size: 0.4 cm Extrem: General: normal to inspection, full ROM, no joint enlargement and no pedal edema Objective Data Vital Signs Vital Signs: Vital Signs - 24 hr 05/21/24 12:00 05/21/24 12:00 05/21/24 16:00 Temperature 98.1 F Pulse Rate 81 68 79 Respiratory Rate 19 16 Blood Pressure 138/88 131/89 Pulse Oximetry 100 99 Oxygen Delivery 05/21/24 20:00 05/22/24 00:00 05/22/24 08:00 Temperature 98.6 F 97.8 F Pulse Rate 65 83 Respiratory Rate 16 19 Blood Pressure 122/66 132/90 Pulse Oximetry 98 99 Oxygen Delivery Room Air Intake/Output Intake/Output: Intake & Output 05/19/24 05/20/24 05/21/24 05/22/24 23:59 23:59 23:59 23:59 Intake Total 3679.7 4278.6 3060 1520 Output Total 7776 700 450 Balance -4045.3 3578.6 2610 1520 Meds/Results Medications: Active Medications Generic Name Dose Route Start Last Admin Trade Name Freq PRN Reason Stop Dose Admin Acetaminophen 650 mg 05/17/24 21:12 05/21/24 00:48 Acetaminophen Elixir 325 Mg/10.15 Ml Udc PO 650 mg Q4H PRN Administration Mild Pain (1-3) or Fever Alprazolam 1 mg 05/20/24 21:06 05/22/24 08:42 Alprazolam (*Crx) 0.5 Mg Tablet PO 1 mg Q8H PRN Administration Anxiety Amoxicillin/Clavulanate Potassium 1 tablet 05/20/24 21:00 05/22/24 08:41 Amoxicillin/Clavulanate K 875-125 Mg Tab PO 05/25/24 20:59 1 tablet Q12HR ROBERT Administration Dextrose 12.5 gm 05/17/24 08:12 Dextrose 50% 25 Gm/50 Ml Syringe IV PUSH PRN PRN Hypoglycemia Protocol Enoxaparin Sodium 40 mg 05/17/24 09:00 05/22/24 08:42 Enoxaparin 40 Mg/0.4 Ml Syringe SUB-Q 40 mg DAILY ROBERT Administration Gabapentin 100 mg 05/21/24 18:40 05/22/24 06:30 Gabapentin 100 Mg Capsule PO 100 mg Q8HR ROBERT Administration Glucagon 1 mg 05/17/24 08:12 Glucagon For Inj 1 Mg Vial IM PRN PRN Hypoglycemia Protocol Glucose 15 gm 05/17/24 08:12 Glucose Oral Gel 15 Gm Of Glucse In 37.5 Gm Tube PO PRN PRN Hypoglycemia Protocol Dextrose 1,000 mls @ 100 mls/hr 05/17/24 08:12 Dextrose 5% 1,000 Ml IVPB PRN PRN Hypoglycemia Protocol Oxycodone HCl 5 mg 05/20/24 13:36 05/22/24 10:38 Oxycodone Hcl (*Crx) 5 Mg Tab Ir PO 5 mg Q4H PRN Administration Pain Rated 7-10 Sodium Chloride 20 ml 05/17/24 06:07 Central Line Flush IV PUSH PRN PRN after blood draws Radiology Results: ITS Impressions Abdomen X-Ray 05/17/24 05:47 Impression: NG tube in satisfactory position. Head CT 05/17/24 15:14 IMPRESSION: No acute intracranial findings. Chest X-Ray 05/19/24 06:31 Impression: Clear lungs. Support tubes, as above. Labs Labs: Laboratory Results - last 24 hr 05/21/24 05/22/24 17:29 06:11 WBC 8.5 RBC 4.19 L Hgb 13.3 L Hct 40.2 L MCV 95.9 MCH 31.7 MCHC 33.1 RDW 13.2 Plt Count 256 MPV 9.0 Sodium 140 Potassium 3.5 Chloride 106 Carbon Dioxide 28 Anion Gap 6 BUN 7 L Creatinine 0.70 Estim Creat Clear Calc 126 Estimated GFR > 60 Glucose 93 Calcium 9.0 Phosphorus 3.6 Magnesium 1.8 Total Bilirubin 0.5 AST 44 ALT 47 Alkaline Phosphatase 60 Total Creatine Kinase 335 H Total Protein 7.0 Albumin 3.7 SARS-CoV-2 RNA (RT-PCR) Negative Hospitalist [facility] Advance Care Plan I have confirmed that the patient's Advanced Care Plan is present, code status is documented, or surrogate decision maker is listed in patient medical record.: Yes Medication Reconciliation I have utilized all available resources to obtain, update and review the patients current medications (includes all prescriptions, OTC, herbals, cannabis, and nutritional supplements).: Yes
--- NOTE | 2024-05-22 11:00 | PCNFU ---
Nutrition Follow-Up Complete: Inadequate energy intake related to NPO status as evidenced by mechanical ventilation - Resolved Meet estimated needs - Meeting nutrition needs PO. Intakes 60-100% recorded Goal: Pt current nutrition is Regular diet with adequate intake 60-100%. Nutrition recommendation: No new nutrition recommendations. Continue current diet orders. Agree with orders Last recorded weight is 62 kg. Bowel Motility: +1 BM 05/20 Labs Reviewed: Hbg 13.3, Hct 40.2, BUN 7 Meds Noted: Lovenox Skin: No skin issues Additional Notes: Extubated 05/19/24. Regular diet. Awaiting discharge planning Monitor intubation status, diet orders, labs, wt. Follow up every 7 days
--- NOTE | 2024-05-22 12:22 | PC.NURSE ---
Noah Lechuga with Poison Control, patient's .
--- NOTE | 2024-05-22 20:19 | PC.NURSE ---
[place] scale was performed by this RN. All questions were asked to the patient who responded with no to all questions. I mentioned to the patient that I understood his admission to the hospital was due to an overdose, he stated that it was accidental and his admission was for a seizure. Filled out the [place] scale based on the responses from the patient at this time.
[2024-05-22] MEDS: GABAPENTIN 100 MG CAPSULE 200 MG PO (22:10)
[2024-05-23] MEDS: ALPRAZolam (*CRX) 0.5 MG TABLET 1 MG PO (02:54)
[2024-05-23] MEDS: LORazepam (*CRX) 1 MG TABLET PO (04:06)
[2024-05-23] MEDS: oxyCODONE HCL (*CRX) 5 MG TAB IR PO ×2 (04:26→08:27)
[2024-05-23] MEDS: GABAPENTIN 100 MG CAPSULE PO (05:52)
[2024-05-23 05:55] VITALS: BP 121/65; PULSE 62; RESP 16; TEMP 36.3; O2SAT 98
--- NOTE | 2024-05-23 06:15 | PC.NURSE ---
Spoke with Ana at [facility] earlier this evening on the phone about psych placement. Ana went over all of the documents that would need to be sent over. All questions that she had were addressed and answered. Ana did a phone assessment with the patient and the patient was agreeable to going voluntarily. Spoke with charge account identification clerk and greenhouse worker about this and was I was instructed to call crisis/[facility] and update them on the status of the patient and placement. I spoke with Amy Blanco about the patients new agreeableness to going voluntarily to the facility and checked that there was nothing additional on her end that needed to be changed or completed. She stated that there was nothing additional for her to do. I have gone through all the steps with Ana at [facility]. Doctor at [facility] has accepted the patient. Report will be called to nursing staff at facility. EMS transport will be set up.
--- NOTE | 2024-05-23 06:32 | P.TS_ITS ---
Transfer Discharge Sum: Prov Provider Date of admission: 05/17/24 10:09 Primary care physician: [employer] [facility] Admitting clinician: Gabriele Cerna MD Consults: 05/17/24 Consult to Physician Routine Comment: Consulting Provider: Daniel Wright call or contact centre coach/MD group to consult: Kyle Reason for consultation: ICU management Has provider been notified: Yes 05/17/24 01:47 Consult to Physician Routine Comment: Consulting Provider: Nadeen Hayes call or contact centre coach/MD group to consult: Black Reason for consultation: Seizures Has provider been notified: Yes Attending physician on discharge: Venancio Ayers Discharging clinician: Tom Akbar Anticipated date of transfer: 05/23/24 Receiving physician/facility: [facility] DS: Admitting Diagnosis Discharge Date 05/23/24 Admitting Diagnosis Drug overdose, alcohol dependence, amphetamine abuse, status epilepticus, acute respiratory failure, alcohol intoxication DS: Discharge Diagnosis Discharge Diagnosis (1) Acute respiratory failure: Code(s): J96.00 - Acute respiratory failure, unspecified whether with hypoxia or hypercapnia Status: Acute (2) Status epilepticus: Code(s): G40.901 - Epilepsy, unspecified, not intractable, with status epilepticus Status: Acute (3) Drug overdose: Qualifiers: Encounter type: initial encounter Injury intent: undetermined intent Qualified Code(s): T50.904A - Poisoning by unspecified drugs, medicaments and biological substances, undetermined, initial encounter Code(s): T50.901A - Poisoning by unspecified drugs, medicaments and biological substances, accidental (unintentional), initial encounter Status: Acute (4) Alcohol intoxication: Code(s): F10.929 - Alcohol use, unspecified with intoxication, unspecified Status: Acute (5) Suicide attempt: Code(s): T14.91XA - Suicide attempt, initial encounter Status: Acute (6) Electrolyte abnormality: Code(s): E87.8 - Other disorders of electrolyte and fluid balance, not elsewhere classified Status: Acute (7) Fever: Code(s): R50.9 - Fever, unspecified Status: Acute (8) Rhabdomyolysis: Code(s): M62.82 - Rhabdomyolysis Status: Acute (9) Polysubstance abuse: Code(s): F19.10 - Other psychoactive substance abuse, uncomplicated Status: Acute (10) Alcohol dependence: Code(s): F10.20 - Alcohol dependence, uncomplicated Status: Acute (11) Amphetamine abuse: Code(s): F15.10 - Other stimulant abuse, uncomplicated Status: Acute Plan Voluntary admission to [facility] for psychiatric care Transfer Discharge Sum: Med Medications Active and Home Medications: Home Medications buprenorphine 8 mg-naloxone 2 mg sublingual tablet 1 tablet sublingual DAILY 07/18/22 [History Confirmed 05/20/24] bupropion HCl 150 mg tablet,12 hr sustained-release 150 mg PO DAILY 05/16/24 [History Confirmed 05/20/24] fluoxetine 20 mg capsule 20 mg PO DAILY 05/16/24 [History Confirmed 05/20/24] fluoxetine 40 mg capsule 40 mg PO DAILY 05/16/24 [History Confirmed 05/20/24] gabapentin 100 mg capsule 100 mg PO TID PRN anxiety or withdraw 05/16/24 [Hist ory Confirmed 05/20/24] clonazepam 1 mg tablet 1 mg PO DAILY 05/20/24 [History Confirmed 05/20/24] clonidine HCl 0.1 mg tablet 0.1 mg PO BID 05/20/24 [History Confirmed 05/20/24] fluoxetine 10 mg capsule 10 mg PO DAILY 05/20/24 [History Confirmed 05/20/24] Active Medications Acetaminophen (Acetaminophen Elixir 325 Mg/10.15 Ml Udc) 650 mg PO Q4H PRN PRN Reason: Mild Pain (1-3) or Fever Last Admin: 05/21/24 00:48 Dose: 650 mg Alprazolam (Alprazolam (*Crx) 0.5 Mg Tablet) 1 mg PO Q8H PRN PRN Reason: Anxiety Last Admin: 05/23/24 02:54 Dose: 1 mg Amoxicillin/Clavulanate Potassium (Amoxicillin/Clavulanate K 875-125 Mg Tab) 1 tablet PO Q12HR ROBERT Stop: 05/25/24 20:59 Last Admin: 05/22/24 20:43 Dose: 1 tablet Dextrose (Dextrose 50% 25 Gm/50 Ml Syringe) 12.5 gm IV PUSH PRN PRN; Protocol PRN Reason: Hypoglycemia Enoxaparin Sodium (Enoxaparin 40 Mg/0.4 Ml Syringe) 40 mg SUB-Q DAILY ROBERT Last Admin: 05/22/24 08:42 Dose: 40 mg Gabapentin (Gabapentin 100 Mg Capsule) 100 mg PO Q8HR [facility] Last Admin: 05/23/24 05:52 Dose: 100 mg Glucagon (Glucagon For Inj 1 Mg Vial) 1 mg IM PRN PRN; Protocol PRN Reason: Hypoglycemia Glucose (Glucose Oral Gel 15 Gm Of Glucse In 37.5 Gm Tube) 15 gm PO PRN PRN; Protocol PRN Reason: Hypoglycemia Dextrose (Dextrose 5% 1,000 Ml) 1,000 mls @ 100 mls/hr IVPB PRN PRN; Protocol PRN Reason: Hypoglycemia Oxycodone HCl (Oxycodone Hcl (*Crx) 5 Mg Tab Ir) 5 mg PO Q4H PRN PRN Reason: Pain Rated 7-10 Last Admin: 05/23/24 04:26 Dose: 5 mg Sodium Chloride (Central Line Flush) 20 ml IV PUSH PRN PRN PRN Reason: after blood draws Transfer Discharge Sum: Hosp Hospital Course Hospital course: Mili Shah is a 23 year old male who presented to the emergency department on 05/16/2024 via EMS after intentional overdose suicide attempt. Patient drank a bottle of vodka took 40 tablets of gabapentin and 2940 mg of fluoxetine as well as admitting to taking multiple drugs including methamphetamines and opioids. Patient began to have seizures and went into status epilepticus necessitating intubation and central line placement. Patient was placed on propofol and Versed for sedation since he was in status epilepticus. On 05/19 patient was extubated but remained in the ICU for close monitoring. He became combative belligerent necessitating security and multiple doses Ativan and e ventually a Precedex drip. On 05/21 patient was moved out of the ICU. Bed available for psychiatric admission on the morning of 05/23/2024. Time Spent with Patient Time attestation: Total time spent providing and/or coordinating transfer services: 45 Exam Narrative: General: Pt is alert awake and in NAD Lungs/Chest: Trachea central Clear BS B/L, No crackles or wheezing. Cardiac: RRR. Normal S1 S2. No murmurs Circulation: Pedal pulses are intact and symmetrical. Abdomen: Normal bowel sounds.. Soft. NT. ND. Extremities: No clubbing, cyanosis or edema. Warm, Neurologic: Follows commands. Moves all 4 extremities PERRL AO x3 Skin: No Rash DS: Data Data Completed and Pending Completed studies during hospitalization: EEG Labs on day of discharge: Labs from last 24 hours 05/22/24 06:11 WBC 8.5 RBC 4.19 L Hgb 13.3 L Hct 40.2 L MCV 95.9 MCH 31.7 MCHC 33.1 RDW 13.2 Plt Count 256 MPV 9.0 Sodium 140 Potassium 3.5 Chloride 106 Carbon Dioxide 28 Anion Gap 6 BUN 7 L Creatinine 0.70 Estim Creat Clear Calc 126 Estimated GFR > 60 Glucose 93 Calcium 9.0 Phosphorus 3.6 Magnesium 1.8 Total Bilirubin 0.5 AST 44 ALT 47 Alkaline Phosphatase 60 Total Creatine Kinase 335 H Total Protein 7.0 Albumin 3.7 Preliminary micro results at discharge 05/19/24 08:34 Blood Culture - Preliminary Blood 05/19/24 08:43 Blood Culture - Preliminary Blood
--- NOTE | 2024-05-23 06:37 | PC.NURSE ---
Report was called to [facility]. All questions were answered. Accepting doctor: Dr Mcfarland. Room #: 203-A.
[2024-05-23] MEDS: AMOXICILLIN/CLAVULANATE K 875-125 MG TAB 1 TABLET PO (08:27)
== END 2024-05-23 09:40 | disposition short-term general hospital (02) | DRG 817 ==
LOC: ANHED 20:28 → ANHICU 21:04 → ANH3MEDSUR 05-22 02:48
PROVIDERS: General Practice; Internal Medicine; Admitting Provider Internal Medicine; Emergency Provider Physician Assistant; Visit Provider Nurse Practitioner
DX: T43.222A Poisoning by selective serotonin reuptake inhibitors, intentional self-harm, initial encounter (principal); T42.6X2A Poisoning by other antiepileptic and sedative-hypnotic drugs, intentional self-harm, initial encounter; G40.501 Epileptic seizures related to external causes, not intractable, with status epilepticus; F15.129 Other stimulant abuse with intoxication, unspecified; F12.129 Cannabis abuse with intoxication, unspecified; F10.229 Alcohol dependence with intoxication, unspecified; Y90.8 Blood alcohol level of 240 mg/100 ml or more; J96.00 Acute respiratory failure, unspecified whether with hypoxia or hypercapnia; T14.91XA Suicide attempt, initial encounter; E87.6 Hypokalemia; M62.82 Rhabdomyolysis; F41.9 Anxiety disorder, unspecified; F32.A Depression, unspecified; R50.81 Fever presenting with conditions classified elsewhere
CPT/HCPCS: 36415; 36600; 70450; 71045; 80053; 80143; 80179; 80307; 81003; 82077; 82375; 82550; 82803; 82805; 82948; 83050; 83605; 83735; 84100; 84145; 84443; 84478; 85018; 85025; 85027; 85610; 85730; 87040; 87070; 87081; 87181; 87205; 87635; 87641; 93005; 94002; 94003; 95816; 96361; 96374; 99285; A9270; C1751; G0378; J1200; J1650; J1953; J2060; J2250; J2470; J2543; J2704; J3010; J3475; J7030; J7050; J7120